=== PATIENT | male | born 1945 | race Caucasian/White ===

== ENCOUNTER → 2016-10-15 | Outpatient (CLI) | payer BC ==
[~2016-10-15] MED LIST: ACYC-147; ACYC-57 PO; AMLO-110 PO; AMLO2.5T PO; ASPI-391 PO; CARB25TA12 PO; CARB25TA14 PO; CHOL100010 PO; CHOL1TAB42 PO; COEN100C15 PO; COEN400C5 PO; DOXY100C PO; HYDR1TAB2 PO; LEVO125T72 PO; LEVO50TA PO; Levofloxacin; METO-551 PO; ROTI1DIS2 TOP; SELE5CAP2 PO; TAMS0.4C59 PO; [UNRECOGNIZED DRUG - OTHER] PO
[2016-10-15 13:15] LABS: HEMATOCRIT 34.4 % (42-52); MEAN CELL VOLUME 90.3 fL (80-100); MEAN CORPUSCULAR HEMOGLOBIN 29.1 pg (25-34); MEAN CORPUSCULAR HGB CONC 32.3 g/dl (32-36); PLATELET COUNT 164 K/uL (130-400); RED BLOOD COUNT 3.81 M/uL (4.7-6.1); WHITE BLOOD COUNT 6.72 K/uL (4.8-10.8)
[2016-10-15 13:53] LABS: BLOOD UREA NITROGEN 25 mg/dl (7-18); BUN/CREATININE RATIO 16.5 (10-20); CALCIUM 8.3 mg/dl (8.5-10.1); CARBON DIOXIDE 28 mmol/L (21-32); CHLORIDE 108 mmol/L (98-107); GLUCOSE 87 mg/dl (70-99); PHOSPHORUS 3.3 mg/dl (2.5-4.9); POTASSIUM 3.9 mmol/L (3.5-5.1); SODIUM 144 mmol/L (136-145)
[2016-10-15 14:58] LABS: URINE APPEARANCE CLEAR (CLEAR); URINE BILIRUBIN NEG (NEG); URINE COLOR DK YELLOW; URINE EPITHELIAL CELL AUTO 20-30 /lpf (0-5); URINE NITRITE NEG (NEG); URINE PH 5.5 (4.5-7.5); URINE SPECIFIC GRAVITY 1.038 (1.000-1.030); UROBILINOGEN NEG (NEG)
[2016-10-15 15:04] LABS: MANUAL MICROSCOPIC REQUIRED? NO; REVIEW REQ? YES
[2016-10-15 15:15] LABS: URINE PROTIEN/CREAT RATIO 0.3 (0-0.2); URINE TOTAL PROTEIN 85.1 mg/dl (0-11.9)
[2016-10-15 15:32] LABS: URINE MUCUS PRESENT (NONE PRSENT)
== END | disposition home or self-care (01) ==
LOC: C.LAB1850 12:25
PROVIDERS: ATTEND Internal Medicine Nephrology
DX: N18.3 Chronic kidney disease, stage 3 (moderate) (principal); C88.0 Waldenstrom macroglobulinemia; I10 Essential (primary) hypertension; N25.81 Secondary hyperparathyroidism of renal origin; D64.9 Anemia, unspecified; E55.9 Vitamin D deficiency, unspecified

== ENCOUNTER 2016-10-18 22:07 | Emergency (ER) | payer BC ==
[~2016-10-18] VITALS: Ht 175.3 cm; Wt 83.7 kg
[~2016-10-18 22:07] MED LIST changes: -ACYC-57 PO; -AMLO-110 PO; -AMLO2.5T PO; -ASPI-391 PO; -CARB25TA12 PO; -CHOL1TAB42 PO; -COEN400C5 PO; -DOXY100C PO; -LEVO125T72 PO; -ROTI1DIS2 TOP
[2016-10-18 22:09] VITALS: TEMP 36.7; Ht 175.3 cm; Wt 83.7 kg
[2016-10-18] MEDS ORDERED: IPRATROPIUM BROMIDE NEB SOLN 0.02% 2.5 ML VIAL INH STA (22:14)
[2016-10-18] MEDS ORDERED: LEVALBUTEROL 1.25MG/0.5ML NEB INH STA (22:14)
[2016-10-18] MEDS ORDERED: ASPI-391 PO (22:29)
[2016-10-18] MEDS ORDERED: ACYC1CAP8 PO (22:29)
[2016-10-18] MEDS ORDERED: ROTI1DIS2 TOP (22:29)
[2016-10-18] MEDS ORDERED: LEVO125T72 PO (22:29)
[2016-10-18] MEDS ORDERED: AMLO2.5T PO (22:29)
[2016-10-18 22:31] VITALS: O2SAT 97
[2016-10-18] MEDS ORDERED: CARB25TA12 PO (22:56)
[2016-10-18] MEDS ORDERED: AMLO-110 PO (22:56)
[2016-10-18] MEDS ORDERED: COEN400C5 PO (22:56)
[2016-10-18] MEDS ORDERED: CHOL1TAB42 PO (22:56)
[2016-10-18 23:02] LABS: BASO % 0.4 %; BASO ABS # 0.03 K/uL (0-0.2); COMPLETE YES; EOS % 3.7 %; HEMATOCRIT 32.8 % (42-52); IG% 0.4 %; LYMPH % 14.1 %; LYMPH ABS # 1.06 K/uL (1.2-3.4); MEAN CELL VOLUME 88.9 fL (80-100); MEAN CORPUSCULAR HGB CONC 32.6 g/dl (32-36); MEAN PLATELET VOLUME 10.7 fL (7.4-10.4); MONO % 16.3 %; NEUT % 65.1 %; PLATELET COUNT 163 K/uL (130-400); RED BLOOD COUNT 3.69 M/uL (4.7-6.1); WHITE BLOOD COUNT 7.54 K/uL (4.8-10.8)
[2016-10-18 23:07] VITALS: PULSE 60; O2SAT 94
[2016-10-18 23:14] LABS: PROTHROMBIN TIME (PATIENT) 10.3 SECONDS (9.0-12.0)
[2016-10-18 23:19] LABS: BUN/CREATININE RATIO 19.7 (10-20); CALCIUM 8.5 mg/dl (8.5-10.1); CREATININE 1.3 mg/dl (0.60-1.40); POTASSIUM 3.9 mmol/L (3.5-5.1)
--- NOTE | 2016-10-18 23:27 | EMERGENCY ROOM VISIT NOTE ---
History Report prepared by Sven: Thompson Davis Under the Supervision of: Dr. Hi Valdovinos M.D. First contact with patient: 22:12 Chief Complaint: SHORTNESS OF BREATH Stated Complaint: SOB, History of Present Illness The patient is a 71 year old male who presents to the Emergency Room with complaints of resolved shortness of breath that occurred earlier tonight. The patient was laying in bed when the shortness of breath occurred. He had a panic attack for the first time in his life when he was short of breath. He has also had a dry, non-productive cough for the past five days. He has had trouble sleeping secondary to the cough. He denies any fevers, chest pain, vomiting, or diarrhea. The patient is susceptible to infection secondary to Waldenstrom macroglobulinemia. He has used inhalers for his lungs in the past. The patient has also noticed increased swelling of his ankles over the past several weeks, which is new. He noticed the swelling prior to a trip to [place]. He does not have a history of blood clots. The patient hasn't seen anybody yet or taken any medications for his symptoms. The patient has a history of Parkinson's disease. Source of History: patient Onset: tonight Position: other (respiratory) Quality: other (short of breath) Timing: resolved Associated Symptoms: + cough, No chest pain, No diarrhea, No fevers, No vomiting Review of Systems See HPI for pertinent positives & negatives. A total of 10 systems reviewed and were otherwise negative. Past Medical & Surgical Medical Problems: (1) Parkinsons disease (2) Waldenstrom macroglobulinemia Family History No pertinent family history Social History Smoking Status: Never Smoker Marital Status: Housing Status: lives with family Current/Historical Medications Scheduled Acyclovir (Zovirax), 200 MG PO BID Amlodipine (Norvasc), 5 MG PO DAILY Nfbfhnn-Ablpmmgvrzlkl-Dxksnaqb (Excedrin Extra Strength), 2 TAB PO BID Carbidopa/Levodopa (Sinemet 25MG/100MG), 2 TABS PO QID Cholecalciferol (Vitamin D), 5,000 UNITS PO DAILY Coenzyme Q10 (Ubidecarenone) (Coq10), 600 MG PO DAILY Doxycycline Hyclate (Vibramycin), 100 MG PO BID Hydrocodone/Acetaminophen 5MG/500MG (Lortab 5MG/500MG), 1-2 TABLET PO Q4-6HR PRN Levothyroxine Sodium (Synthroid), 125 MCG PO DAILY Metoprolol Tartrate (Lopressor), 2 TABLETS PO DAILY Selegiline Hcl (Eldepryl), 5 MG PO BID Tamsulosin Hcl (Flomax), 0.4 MG PO HS Allergies Coded Allergies: Levofloxacin (Verified Allergy, Severe, KIDNEYS HURT,ANKLES SWELL, 10/18/16) Lisinopril (Verified Allergy, Severe, SHORTNESS OF BREATH, 03/28/15) Fentanyl (Verified Allergy, Intermediate, RASH, 03/28/15) Olmesartan (Verified Allergy, Intermediate, RASH, 03/28/15) Tramadol (Verified Allergy, Intermediate, RASH, 03/28/15) Oxycodone (Verified Allergy, Mild, ITCHING, ALLERGY TO OXYCODONE ONLY, ) Pramipexole (Verified Adverse Reaction, Mild, GI SYMPTOMS, 03/28/15) Topiramate (Verified Adverse Reaction, Mild, GI SYMPTOMS, 03/28/15) Physical Exam Vital Signs Date Time Temp Pulse Resp B/P Pulse Ox O2 Delivery O2 Flow Rate FiO2 10/19/16 01:15 62 18 154/86 95 Room Air 10/18/16 23:52 62 20 149/85 95 Room Air 10/18/16 23:07 60 24 94 Room Air 10/18/16 22:38 62 10/18/16 22:31 97 Room Air 10/18/16 22:23 96 Room Air 10/18/16 22:09 36.7 64 20 149/83 97 Room Air Physical Exam GENERAL: Patient is in no acute distress. HEENT: No acute trauma, normocephalic atraumatic, mucous membranes moist, mild nasal congestion, no scleral icterus, no throat erythema or exudate. NECK: No stridor, no adenopathy, no meningismus, trachea is midline. LUNGS: Diminished breath sounds bilaterally, dry cough, breath sounds equal, no wheezing or rhonchi. HEART: 3/6 systolic murmur, regular rate and rhythm. ABDOMEN: Soft, nontender, bowel sounds positive, no hernias, no peritonitis. EXTREMITIES: No cyanosis, mild bilateral pedal edema, full range of motion of all the joints without pain or difficulty, no signs for acute trauma. NEUROLOGIC: Oriented x 3, no acute motor or sensory deficits, no focal weakness. SKIN: No rash, no jaundice, no diaphoresis. Medical Decision & Procedures ER Provider Diagnostic Interpretation: X-ray results as stated below per interpretation by me. Other radiology results and stated below per my review and radiologist interpretation: CHEST ONE VIEW PORTABLE: No mediastinal widening. No pneumothorax. Chronic changes to both lower lungs. No obvious acute focal infiltrate. US VENOUS BILATERAL LOWER EXTREMITIES: No evidence of DVT in the bilateral lower extremities. Radologist: Fabiola Smith MD. Laboratory Results 10/18/16 22:50 Red Blood Count 3.69, Mean Corpuscular Volume 88.9, Mean Corpuscular Hemoglobin 29.0, Mean Corpuscular Hemoglobin Concent 32.6, Mean Platelet Volume 10.7, Neutrophils (%) (Auto) 65.1, Lymphocytes (%) (Auto) 14.1, Monocytes (%) (Auto) 16.3, Eosinophils (%) (Auto) 3.7, Basophils (%) (Auto) 0.4, Neutrophils # (Auto ) 4.91, Lymphocytes # (Auto) 1.06, Monocytes # (Auto) 1.23, Eosinophils # (Auto ) 0.28, Basophils # (Auto) 0.03 10/18/16 22:50 Test 10/18/16 22:50 White Blood Count 7.54 K/uL (4.8-10.8) Red Blood Count 3.69 M/uL (4.7-6.1) Hemoglobin 10.7 g/dL (14.0-18.0) Hematocrit 32.8 % (42-52) Mean Corpuscular Volume 88.9 fL (80-100) Mean Corpuscular Hemoglobin 29.0 pg (25-34) Mean Corpuscular Hemoglobin Concent 32.6 g/dl (32-36) Platelet Count 163 K/uL (130-400) Mean Platelet Volume 10.7 fL (7.4-10.4) Neutrophils (%) (Auto) 65.1 % Lymphocytes (%) (Auto) 14.1 % Monocytes (%) (Auto) 16.3 % Eosinophils (%) (Auto) 3.7 % Basophils (%) (Auto) 0.4 % Neutrophils # (Auto) 4.91 K/uL (1.4-6.5) Lymphocytes # (Auto) 1.06 K/uL (1.2-3.4) Monocytes # (Auto) 1.23 K/uL (0.11-0.59) Eosinophils # (Auto) 0.28 K/uL (0-0.5) Basophils # (Auto) 0.03 K/uL (0-0.2) RDW Standard Deviation 46.8 fL (36.4-46.3) RDW Coefficient of Variation 14.3 % (11.5-14.5) Immature Granulocyte % (Auto) 0.4 % Immature Granulocyte # (Auto) 0.03 K/uL (0.00-0.02) Prothrombin Time 10.3 SECONDS (9.0-12.0) Prothromb Time International Ratio 1.0 (0.9-1.1) Activated Partial Thromboplast Time 26.1 SECONDS (21.0-31.0) Partial Thromboplastin Ratio 1.0 Anion Gap 10.0 mmol/L (3-11) Est Creatinine Clear Calc Drug Dose 51.4 ml/min Estimated GFR () 63.2 Estimated GFR (Non- 54.5 BUN/Creatinine Ratio 19.7 (10-20) Calcium Level 8.5 mg/dl (8.5-10.1) Troponin I 0.018 ng/ml (0-0.045) Laboratory results reviewed by me. Medications Administered Medications (Trade) Dose Ordered Sig/Maggie Route Start Time Stop Time Status Last Admin Dose Admin Levalbuterol (Xopenex 1.25MG/ 0.5ML Neb) 1.25 mg NOW STAT INH 10/18/16 22:14 10/18/16 22:22 DC 10/18/16 22:14 1.25 MG Ipratropium [place] (Atrovent 0.02% 0.5MG/2.5ML Neb) 0.5 mg NOW STAT INH 10/18/16 22:14 10/18/16 22:22 DC 10/18/16 22:14 0.5 MG Pseudoephedrine HCl (Sudafed Tab) 60 mg NOW STAT PO 10/18/16 23:56 10/18/16 23:59 DC 10/19/16 00:05 60 MG Doxycycline Hyclate (Vibramycin Cap) 100 mg ONE ONCE PO 10/19/16 00:00 10/19/16 00:01 DC 10/19/16 00:05 100 MG Albuterol (Ventolin Hfa Inhaler) 2 puffs NOW ONCE INH 10/19/16 00:00 10/19/16 00:01 DC 10/19/16 00:06 2 PUFFS ECG Indication: SOB/dyspnea Rate (beats per minute): 61 Rhythm: normal sinus Findings: no acute ischemic change, no ectopy ED Course 2213: The patient was evaluated in room A3. A complete history and physical exam was performed. 2214: Ipratropium [place] 0.5 mg INH, Levalbuterol 1.25 mg INH. 2355: The patient is doing okay. He is getting ready to go for ultrasound. He would like to try Sudafed. 2356: Sudafed 60 mg PO. 0000: Albuterol 2 puffs INH, Vibramycin 100 mg PO. 0130: Reevaluated the patient. Discussed results and discharge instructions: He verbalized understanding and agreement. The patient is ready for discharge. Medical Decision Differential diagnosis includes bronchitis, pneumonia, sinusitis, DVT/PE, anemia , electrolyte imbalance, cardiac ischemia. There is no leukocytosis. The patient does have a mild anemia but this is baseline looking back at previous testing. No significant electrolyte abnormality or kidney failure. Chest x-ray does not show any obvious pneumonia , pneumothorax or CHF. EKG shows a normal sinus rhythm, no acute ischemia. Cardiac enzyme testing times one is not suggestive of acute cardiac injury. Bilateral lower extremity ultrasound does not show any evidence for DVT. The patient received a DuoNeb, he was given oral Sudafed. He was given oral doxycycline. The patient received albuterol via [facility]. The patient looks well, he is not hypoxic or toxic. I suspect he has an acute bronchitis. As he is immunocompromised, I will have him start antibiotics. He will be prescribed doxycycline. He has used albuterol in the past with success. He used to have a nebulizer. He is going to be using albuterol via [facility]. I have suggested some [id number] Sudafed as needed for persisting nasal congestion. He can see his doctor this week. If worsening, he should return for reassessment. Impression Primary Impression: Acute bronchitis Additional Impression: Lower extremity edema Scribe Attestation The scribe's documentation has been prepared under my direction and personally reviewed by me in its entirety. I confirm that the note above accurately reflects all work, treatment, procedures, and medical decision making performed by me. Departure Information Dispostion Home / Self-Care Prescriptions Doxycycline Hyclate (VIBRAMYCIN) 100 Mg Cap 100 MG PO BID for 10 Days, #20 CAP Prov: Hi Valdovinos M.D. 10/19/16 Referrals Tho Dickerson M.D. (PCP) Forms HOME CARE DOCUMENTATION FORM, IMPORTANT VISIT INFORMATION Patient Instructions A Signature Page, My [facility] Additional Instructions doxycycline 2x per day for 10 days albuterol 3 puffs every 4 or so hours humidifier to the room may try sudafed for congestion see carlin delgado for recheck this week return for worsening symptoms lab testing and imaging was ok today we will call if radiology reads your films differently
[2016-10-18] MEDS ORDERED: PSEUDOEPHEDRINE HCL 30 MG TAB PO STA (23:56)
[2016-10-19] MEDS ORDERED: ALBUTEROL HFA 8 GM INHALER INH ONE
[2016-10-19] MEDS ORDERED: DOXYCYCLINE HYCLATE 100 MG CAP PO ONE
[2016-10-19 01:15] VITALS: BP 154/86; PULSE 62; O2SAT 95
[2016-10-19] MEDS ORDERED: DOXY100C PO (01:29)
--- NOTE | 2016-10-19 06:30 | DIAGNOSTIC IMAGING REPORT ---
CHEST ONE VIEW PORTABLE CLINICAL HISTORY: Respiratory distress. Dyspnea. COMPARISON STUDY: Chest radiograph March 02, 2016. FINDINGS: Lung volumes are at the lower limits of normal. No pneumothorax or pleural effusion is present. There are no areas of consolidation. There is no evidence of pulmonary edema. Cardiomediastinal silhouette is stable. IMPRESSION: No acute cardiopulmonary findings. Electronically signed by: Bin Lake M.D. 10/19/2016 6:29 AM Dictated Date/Time: 10/19/2016 6:28 AM
--- NOTE | 2016-10-19 06:42 | DIAGNOSTIC IMAGING REPORT ---
BILATERAL LOWER EXTREMITY VENOUS DOPPLER CLINICAL HISTORY: Lower extremity swelling. Recent plane trip. Shortness of breath. COMPARISON STUDY: No previous studies for comparison. TECHNIQUE: Sonography of the deep venous system of the bilateral lower extremities was performed. Compression and augmentation were evaluated. FINDINGS: The bilateral common femoral, superficial femoral and popliteal veins were compressible. Augmentation was normal. Flow was shown within the deep calf vessels. IMPRESSION: No evidence of deep venous thrombus within the bilateral lower extremities. Electronically signed by: Bin Lake M.D. 10/19/2016 6:40 AM Dictated Date/Time: 10/19/2016 6:39 AM
== END 2016-10-19 01:39 | disposition home or self-care (01) ==
LOC: C.EDB 22:07 → C.EDA 10-19 01:39
DX: J20.9 Acute bronchitis, unspecified (principal); R60.0 Localized edema; G20 Parkinson's disease; Z79.82 Long term (current) use of aspirin; Z79.899 Other long term (current) drug therapy; Z88.5 Allergy status to narcotic agent; Z88.8 Allergy status to other drugs, medicaments and biological substances

== ENCOUNTER → 2017-01-26 | Outpatient (CLI) | payer BC ==
[~2017-01-26] MED LIST changes: -ACYC-147; +ACYC-57 PO; +AMLO-110 PO; +ASPI-391 PO; +CARB25TA12 PO; -CARB25TA14 PO; -CHOL100010 PO; +CHOL1TAB42 PO; -COEN100C15 PO; +COEN400C5 PO; +LEVO125T72 PO; -LEVO50TA PO; -Levofloxacin; -[UNRECOGNIZED DRUG - OTHER] PO
== END | disposition home or self-care (01) ==
LOC: C.RDSM 13:57
PROVIDERS: ATTEND Family Medicine
DX: M25.512 Pain in left shoulder (principal)

== ENCOUNTER → 2017-04-15 | Outpatient (CLI) | payer BC ==
[~2017-04-15] MED LIST changes: -ACYC-57 PO; +ACYC1CAP8 PO
[2017-04-15 15:41] LABS: HEMATOCRIT 33.9 % (42-52); MEAN CELL VOLUME 90.9 fL (80-100); MEAN CORPUSCULAR HEMOGLOBIN 28.4 pg (25-34); MEAN CORPUSCULAR HGB CONC 31.3 g/dl (32-36); MEAN PLATELET VOLUME 11.1 fL (7.4-10.4); PLATELET COUNT 157 K/uL (130-400); RED BLOOD COUNT 3.73 M/uL (4.7-6.1); WHITE BLOOD COUNT 8.64 K/uL (4.8-10.8)
[2017-04-15 15:51] LABS: URINE APPEARANCE CLEAR (CLEAR); URINE BILIRUBIN NEG (NEG); URINE COLOR YELLOW; URINE NITRITE NEG (NEG); URINE PH 5.5 (4.5-7.5); UROBILINOGEN NEG (NEG)
[2017-04-15 16:02] LABS: MANUAL MICROSCOPIC REQUIRED? NO; REVIEW REQ? NO
[2017-04-15 16:08] LABS: URINE PROTIEN/CREAT RATIO 0.2 (0-0.2); URINE TOTAL PROTEIN 31.3 mg/dl (0-11.9)
[2017-04-15 16:09] LABS: BLOOD UREA NITROGEN 28 mg/dl (7-18); BUN/CREATININE RATIO 16.7 (10-20); CALCIUM 9.2 mg/dl (8.5-10.1); CARBON DIOXIDE 27 mmol/L (21-32); CHLORIDE 105 mmol/L (98-107); GLUCOSE 89 mg/dl (70-99); PHOSPHORUS 3.8 mg/dl (2.5-4.9); POTASSIUM 4.3 mmol/L (3.5-5.1); SODIUM 140 mmol/L (136-145)
== END | disposition home or self-care (01) ==
LOC: C.LAB1850 14:52
PROVIDERS: ATTEND Internal Medicine Nephrology
DX: N18.3 Chronic kidney disease, stage 3 (moderate) (principal); I12.9 Hypertensive chronic kidney disease with stage 1 through stage 4 chronic kidney disease, or unspecified chronic kidney disease; C88.0 Waldenstrom macroglobulinemia; N25.81 Secondary hyperparathyroidism of renal origin; D64.9 Anemia, unspecified; E55.9 Vitamin D deficiency, unspecified

== ENCOUNTER → 2017-10-15 | Outpatient (CLI) | payer BC ==
[~2017-10-15] MED LIST changes: +ACYC-57 PO; -ACYC1CAP8 PO; -AMLO-110 PO; +AMLO5TAB3 PO; +CINN500C13 PO; +HYDR-4715 PO; +KLN/5 PO; +LXP10 PO; +SILD1TAB11 PO
[2017-10-15 14:40] LABS: HEMATOCRIT 32.8 % (42-52); HEMOGLOBIN 10.2 g/dL (14.0-18.0); MEAN CELL VOLUME 91.1 fL (80-100); MEAN CORPUSCULAR HEMOGLOBIN 28.3 pg (25-34); MEAN CORPUSCULAR HGB CONC 31.1 g/dl (32-36); MEAN PLATELET VOLUME 10.9 fL (7.4-10.4); PLATELET COUNT 145 K/uL (130-400); RED CELL DISTRIBUTION WIDTH CV 14.9 % (11.5-14.5); RED CELL DISTRIBUTION WIDTH SD 49.6 fL (36.4-46.3); WHITE BLOOD COUNT 6.68 K/uL (4.8-10.8)
[2017-10-15 17:24] LABS: ALBUMIN 3.2 gm/dl (3.4-5.0); BLOOD UREA NITROGEN 25 mg/dl (7-18); CALCIUM 8.3 mg/dl (8.5-10.1); CARBON DIOXIDE 24 mmol/L (21-32); CREATININE 1.54 mg/dl (0.60-1.40); GLUCOSE 91 mg/dl (70-99); PHOSPHORUS 3.4 mg/dl (2.5-4.9); POTASSIUM 3.5 mmol/L (3.5-5.1); SODIUM 139 mmol/L (136-145)
== END | disposition home or self-care (01) ==
LOC: C.LAB1850 13:11
PROVIDERS: ATTEND Internal Medicine Nephrology
DX: I12.9 Hypertensive chronic kidney disease with stage 1 through stage 4 chronic kidney disease, or unspecified chronic kidney disease (principal); N18.3 Chronic kidney disease, stage 3 (moderate); N25.81 Secondary hyperparathyroidism of renal origin; D64.9 Anemia, unspecified; E55.9 Vitamin D deficiency, unspecified

== ENCOUNTER → 2018-02-04 | Outpatient (CLI) | payer BC ==
[~2018-02-04] MED LIST changes: +AMLO-110 PO; -AMLO5TAB3 PO; +CLON0.5T3 PO; -KLN/5 PO
--- NOTE | 2018-02-04 10:21 | DIAGNOSTIC IMAGING REPORT ---
LEG LENGTH STUDY (WHOLE LEG) CLINICAL HISTORY: LEG LENGTH DISCREPANCY COMPARISON STUDY: Left tibia/fibula 07/14/2013. FINDINGS: There is a left downward tilt of the pelvis of approximately 10 degrees. This is primarily secondary to the varus angulation of the left knee with severe cartilage space narrowing and [id number] articulation of the lateral compartment of the left knee. This accounts for the apparent shortening of the left lower extremity. The left lower extremity measured from the superior aspect of the femoral head to the tibial plafond measures 86.1 cm and the right lower extremity measures 89.9 cm. The left tibia measures approximately 36.7 cm and the right tibia measures 38.8 cm. The right femur measures 50.5 cm and the left femur measures 49.2 cm. IMPRESSION: Multifactorial left lower extremity shortening in comparison to the right as described above. Electronically signed by: Rudy Desouza M.D. 02/04/2018 10:20 AM Dictated Date/Time: 02/04/2018 10:15 AM
== END | disposition home or self-care (01) ==
LOC: C.RADBC 09:56
PROVIDERS: ATTEND Physician Assistant
DX: M21.70 Unequal limb length (acquired), unspecified site (principal); M54.5 Low back pain

== ENCOUNTER → 2018-04-28 | Outpatient (CLI) | payer BC ==
[~2018-04-28] MED LIST changes: -AMLO-110 PO; -CLON0.5T3 PO; -HYDR1TAB2 PO; +KLN/5 PO; -SELE5CAP2 PO
[2018-04-28 12:32] LABS: BASO % 0.6 %; BASO ABS # 0.04 K/uL (0-0.2); EOS % 0.8 %; EOS ABS # 0.05 K/uL (0-0.5); HEMATOCRIT 32.6 % (42-52); HEMOGLOBIN 9.9 g/dL (14.0-18.0); IG# 0.04 K/uL (0.00-0.02); LYMPH ABS # 1.97 K/uL (1.2-3.4); MEAN CELL VOLUME 90.8 fL (80-100); MEAN CORPUSCULAR HEMOGLOBIN 27.6 pg (25-34); MEAN CORPUSCULAR HGB CONC 30.4 g/dl (32-36); MEAN PLATELET VOLUME 10.9 fL (7.4-10.4); MONO ABS # 1.05 K/uL (0.11-0.59); NEUT ABS # 3.41 K/uL (1.4-6.5); PLATELET COUNT 150 K/uL (130-400); RED CELL DISTRIBUTION WIDTH CV 15.1 % (11.5-14.5); RED CELL DISTRIBUTION WIDTH SD 50.4 fL (36.4-46.3); WHITE BLOOD COUNT 6.56 K/uL (4.8-10.8)
[2018-04-28 12:43] LABS: ALBUMIN 3.3 gm/dl (3.4-5.0); ALKALINE PHOSPHATASE 111 U/L (45-117); ALT/SGPT 8 U/L (12-78); AST/SGOT 14 U/L (15-37); BLOOD UREA NITROGEN 30 mg/dl (7-18); CALCIUM 8.8 mg/dl (8.5-10.1); CARBON DIOXIDE 28 mmol/L (21-32); CREATININE 1.53 mg/dl (0.60-1.40); GLUCOSE 88 mg/dl (70-99); POTASSIUM 4.5 mmol/L (3.5-5.1); SODIUM 139 mmol/L (136-145); TOTAL PROTEIN 7.8 gm/dl (6.4-8.2); TRANSFERRIN 272 mg/dl (200-360)
[2018-04-28 13:42] LABS: FECAL OCCULT BLOOD #1 NEGATIVE (NEGATIVE); FECAL OCCULT BLOOD #2 NEGATIVE (NEGATIVE); FECAL OCCULT BLOOD #3 NEGATIVE (NEGATIVE)
== END | disposition home or self-care (01) ==
LOC: C.LAB1850 10:45
PROVIDERS: ATTEND Internal Medicine Nephrology
DX: I12.9 Hypertensive chronic kidney disease with stage 1 through stage 4 chronic kidney disease, or unspecified chronic kidney disease (principal); N18.3 Chronic kidney disease, stage 3 (moderate); G20 Parkinson's disease; N25.81 Secondary hyperparathyroidism of renal origin; D64.9 Anemia, unspecified; E55.9 Vitamin D deficiency, unspecified

== ENCOUNTER → 2018-05-03 | Outpatient (CLI) | payer BC ==
--- NOTE | 2018-05-03 16:22 | DIAGNOSTIC IMAGING REPORT ---
BRAIN WITHOUT CONTRAST HISTORY: 72 years-old Male R51 Headache acute headache. History of stage III kidney disease. COMPARISON: Brain MRI 04/09/2014 TECHNIQUE: Multiplanar multisequence MRI of the brain was obtained without the use of IV contrast FINDINGS: Sales Intern localizer images demonstrate no gross abnormality. No restricted diffusion to suggest acute or subacute infarction. Prominent posterior bright spot about the pituitary without definite pituitary mass identified. The remaining midline structures including the corpus callosum, brainstem, optic chiasm and pineal gland appear unremarkable on the sagittal T1 series. No cerebellar tonsillar herniation. Degenerative changes about the imaged cervical spine. There is no pathologic blooming artifact identified on the T2 star series. There is no acute intracranial hemorrhage, midline shift, abnormal extra-axial collections, hydrocephalus or intracranial mass. Study is mildly motion degraded. There are a few scattered areas of T2/FLAIR prolongation about the subcortical and periventricular white matter which appears unchanged from comparison suggesting chronic microvascular ischemic changes. Mild age-related cerebral and cerebellar atrophy. The major flow voids appear patent. Orbits are within normal limits. Mild mucoperiosteal thickening about the ethmoid air cells, frontal and maxillary sinuses. Trace left mastoid effusion. Soft tissues and skull are unremarkable. IMPRESSION: 1. No acute intracranial abnormality. 2. No acute infarction. 3. Age-related involutional changes with mild chronic microvascular ischemic changes. 4. Mild paranasal sinus disease with trace left mastoid effusion. The above report was generated using voice recognition software. It may contain grammatical, syntax or spelling errors. Electronically signed by: Jeffry Boss M.D. 05/03/2018 4:20 PM Dictated Date/Time: 05/03/2018 4:13 PM
== END | disposition home or self-care (01) ==
LOC: C.MRIBC 14:38
PROVIDERS: ATTEND Physician Assistant
DX: R51 Headache (principal)

== ENCOUNTER 2018-11-24 21:29 | Observation (INO) ==
[2018-11-24 22:11] LABS: Hematocrit (blood only) 34.7 % (42-52); Hemoglobin 10.1 g/dL (14.0-18.0); Mean Corpuscular Hgb Conc 29.1 g/dL (32-36); Mean Corpuscular Volume 92.8 fL (80-100); RDW Standard Deviation 57.6 fL (36.4-46.3); Red Blood Count 3.74 M/uL (4.7-6.1)
[2018-11-24 22:21] LABS: Partial Thromboplastin Ratio 1.1; Partial Thromboplastin Time 27.3 Seconds (21.0-31.0); Prothrombin Time 10.1 Seconds (9.0-12.0)
[2018-11-24 22:23] LABS: Alanine Aminotransferase 6 U/L (12-78); Albumin Level 2.7 gm/dl (3.4-5.0); Aspartate Aminotransferase 20 U/L (15-37); BUN Creatinine Ratio 24.5 (10-20); Blood Urea Nitrogen 39 mg/dl (7-18); Calcium 8.8 mg/dl (8.5-10.1); Carbon Dioxide 29 mmol/L (21-32); Chloride 106 mmol/L (98-107); Creatinine Clr Calc Pharmacy 41.4 ml/min; Est GFR (African American) 48.8; Est GFR (Non-African American) 42.1; Glucose 101 mg/dl (70-99); Sodium 141 mmol/L (136-145)
[2018-11-24 22:27] LABS: Albumin Globulin Ratio 0.6 (0.9-2); Alkaline Phosphatase 116 U/L (45-117); Bilirubin,Total 0.3 mg/dl (0.2-1); Globulin 4.7 gm/dl (2.5-4.0); Total Protein 7.4 gm/dl (6.4-8.2); Troponin I < 0.015 ng/ml (0-0.045)
[2018-11-24 22:38] LABS: Basophils # (auto) 0.02 K/uL (0-0.2); Basophils % (auto) 0.4 %; Eosinophils # (auto) 0.06 K/uL (0-0.5); Eosinophils % (auto) 1.1 %; Immature Granulocytes # (auto) 0.17 K/uL (0.00-0.02); Lymphocytes % (auto) 28.1 %; Mean Platelet Volume 10.7 fL (7.4-10.4); Monocytes # (auto) 0.84 K/uL (0.11-0.59); Monocytes % (auto) 14.7 %; Neutrophils # (auto) 3.01 K/uL (1.4-6.5); Neutrophils % (auto) 52.7 %; Platelet Count 94 K/uL (130-400); Platelet Estimate Decreased (Normal)
--- NOTE | 2018-11-24 22:39 | XRay Report ---
XR chest 1V portable HISTORY: Short of breath. COMPARISON: Chest 11/11/2018. FINDINGS: No pneumothorax. No pleural effusions. There are low lung volumes. The heart remains mildly enlarged. No evidence for pulmonary edema. Bibasilar linear densities are noted. IMPRESSION: 1. Mild cardiomegaly, unchanged. 2. Low lung volumes with bibasilar linear densities. This favors subsegmental atelectasis. Electronically signed by: Rudy Desouza M.D. 11/24/2018 10:38 PM
[2018-11-25 00:07] LABS: NT Pro B Type Natriuretic Pept 793 pg/ml (0-900)
--- NOTE | 2018-11-25 02:12 | Emergency Department Note ---
Entered by Jones Mcarthur acting as a scribe for Greg Hawk MD ED Provider Note CHIEF COMPLAINT: Shortness of breath HISTORY OF PRESENT ILLNESS: The patient is a 73 year old male who presents to the Emergency Room with complaints of worsening shortness of breath beginning 5 months ago. The patient states he has a a history of Waldenstrom macroglobulinemia. He reports he experienced worsening an episode of shortness of breath while sitting down watching TV. He denies exerting himself. His states his lips will intermittently turn purple. The patient notes he gets weekly injections for his anemia, and his hemoglobin is normally between 8-10. He states he does not have underlying lung problems, but his PCP has him on steroids and an inhaler. The patient reports he recently had sinusitis that cured with doxycycline. He notes he starts chemotherapy on . Pt denies LOC, headache, fevers, chills, diaphoresis, visual changes, neck pain, chest pain, nausea, vomiting, abdominal pain, back pain, melena, hematochezia, urinary symptoms, numbness, weakness, lymphadenopathy, rash, or other complaints. REVIEW OF SYSTEMS: See HPI for pertinent positives and negatives. A total of ten systems were reviewed and were otherwise negative. PMHx/PSHx: Waldenstrom macroglobulinemia HTN Parkinson disease SOCIAL HISTORY: Patient lives at home. PHYSICAL EXAM: GENERAL: Awake, alert, tired-appearing, in no distress HENT: Normocephalic, atraumatic. Oropharynx unremarkable. EYES: Normal conjunctiva. Sclera non-icteric. NECK: Inspection normal. Non-tender. Supple. No nuchal rigidity. FROM. No masses. RESPIRATORY: Clear to auscultation. No wheezes. No rales. Normal respiratory effort. CARDIAC: Normal rate. Normal rhythm. Systolic ejection murmurs. No rubs. Extremities warm and well perfused. Pulses equal. No JVD. GI: Soft, non-distended. No tenderness to palpation. No rebound or guarding. No masses. RECTAL: Deferred. MUSCULOSKELETAL: Atraumatic. Chest examination reveals no tenderness. The back is symmetrical on inspection without obvious abnormality. There is no CVA tenderness to palpation. No joint edema. LOWER EXTREMITIES: Calves are equal size bilaterally and non-tender. 1+ lower extremity edema. No discoloration. NEURO: Normal sensorium. No sensory or motor deficits noted. SKIN: No rash or jaundice noted. EMERGENCY DEPARTMENT COURSE: 2258: Past medical records reviewed. The patient was evaluated in room C03 by the medical student under my supervision, and a complete history and physical examination were performed. 2338: Past medical records reviewed. The patient was evaluated in room C03, and a complete history and physical examination were performed by me. 0009: I reevaluated the patient and noted the D-dimer was elevated. The patient will be going for a bilateral LE ultrasound. Patient cannot have CT because creatinine was elevated. 0144: I reevaluated the patient and discussed the test results. The patient agreed to the treatment plan and hospitalist evaluation. The patient will be evaluated for further management and care. 0150: I discussed the patient's care with Dr. Lind [facility] [place], hospitalist and she will evaluate the patient for further management and care. MEDICAL DECISION MAKING: Prior records/ancillary studies reviewed. Patient noted to have a mild anemia which is stable around hemoglobin of 10. Triage Nursing notes reviewed and agree them. Additional history obtained from the family. The patient's history was concerning for shortness of breath. Differential diagnosis: Etiologies such as pneumonia, COPD, reactive airway disease, CHF, cardiac ischemia, pulmonary embolism, pneumothorax, musculoskeletal, infections, gastrointestinal, as well as others were entertained. Physical examination: As above. Vital signs stable. ER treatment provided: Continuous cardiac monitoring On reassessment the patient felt better. Diagnostic interpretation by me: The electrocardiogram was negative for pathologic change. The labs revealed an unremarkable CBC except for stable anemia. Chronic renal insufficiency noted on chemistry panel. Cardiac troponin negative. The patient 's d-dimer is elevated. Imaging studies: Chest x-ray performed and negative. The patient had bilateral ultrasound imaging of the lower extremities which were negative for DVT. Patient had shortness of breath. He has an elevated d-dimer. He has an elevated creatinine. Because of this he will need further evaluation with the VQ scan. That is not available at this time. I discussed having the patient observed in the hospital overnight and he felt comfortable with this plan. He was very concerned about his breathing. Consultation: A consultation was placed with the hospitalist. The case was discussed and diagnostics were reviewed. The patient was evaluated in the ER for further treatment. IMPRESSION: SOB, Elevated d-dimer, Chronic Kidney Disease PLAN: Admit Scribe Attestation: The scribe's documentation has been prepared under my direction and personally reviewed by me in its entirety. I confirm that the note above accurately reflects all work, treatment, procedures, and medical decision making performed by me. Impression & Plan SOB (shortness of breath), Elevated d-dimer, Chronic kidney disease Past Med/Surg History Medical History Leg length discrepancy (Chronic) Bilateral sacroiliitis (Chronic) Parkinson disease (Chronic) Urinary frequency (Chronic) Hypertension (Chronic) Hypothyroid (Chronic) Parkinsons disease (Chronic) Waldenstrom macroglobulinemia (Chronic) Surgical History S/P knee surgery H/O hemorrhoidectomy (Resolved) H/O left knee surgery (Resolved) H/O thumb surgery (Resolved) Family History Mother Diabetes Father Diabetes Social History marital status: Current Living Situation: Spouse current occupational status: retired Other Information That Helps Us Care for You: No Feels Safe at Home: Yes Safety Concerns: Feels Safe At This Time Smoking Status: Never smoker Hx Alcohol Use: No Hx Substance Use: No Beliefs That Will Affect Care: None Communication Ability: Effective Results & Data Vital Signs Vital Signs - 24 hr 11/25/18 02:03 11/25/18 06:08 11/25/18 06:37 Temperature 36.5 C Temperature Source Oral Pulse Rate [Apical] 67 67 67 Pulse Rate [Resting] Pulse Rate [Right Brachial] Pulse Rhythm [Apical] Regular Regular Pulse Strength [Apical] Normal Normal Respiratory Rate 16 17 18 Respiratory Effort / Characteristics Non-Labored Spontaneous Non-Labored Spontaneous Non-Labored Spontaneous Respiratory Depth Normal Normal Normal Respiratory Pattern Regular Regular Blood Pressure [Right Arm] 144/72 H 164/86 H 169/77 H Blood Pressure Mean [Right Arm] 96 112 107 Blood Pressure Position [Right Arm] Lying Sitting Pulse Oximetry 96 95 Pulse Oximetry [Resting] Oxygen Delivery Method Room Air Room Air Room Air Oxygen Delivery Method [Resting] 11/25/18 08:00 11/25/18 12:46 11/25/18 15:10 Temperature 36.8 C 36.7 C Temperature Source Oral Oral Pulse Rate [Apical] Pulse Rate [Resting] Pulse Rate [Right Brachial] 63 59 L Pulse Rhythm [Apical] Pulse Strength [Apical] Respiratory Rate 18 20 Respiratory Effort / Characteristics Non-Labored Spontaneous Respiratory Depth Normal Respiratory Pattern Regular Blood Pressure [Right Arm] 154/75 H 168/84 H 160/80 H Blood Pressure Mean [Right Arm] 101 112 106 Blood Pressure Position [Right Arm] Right Lateral Sitting Pulse Oximetry 97 97 Pulse Oximetry [Resting] Oxygen Delivery Method Room Air Oxygen Delivery Method [Resting] 11/25/18 19:56 11/25/18 23:00 11/25/18 23:12 Temperature 36.5 C 37.0 C Temperature Source Oral Oral Pulse Rate [Apical] Pulse Rate [Resting] 64 Pulse Rate [Right Brachial] 65 58 L Pulse Rhythm [Apical] Pulse Strength [Apical] Respiratory Rate 20 18 Respiratory Effort / Characteristics Respiratory Depth Respiratory Pattern Blood Pressure [Right Arm] 184/88 H 172/85 H Blood Pressure Mean [Right Arm] 120 114 Blood Pressure Position [Right Arm] Lying Lying Pulse Oximetry 98 95 Pulse Oximetry [Resting] 95 Oxygen Delivery Method Room Air Room Air Oxygen Delivery Method [Resting] Room Air Home Medications Current Medication List: was personally reviewed by me Laboratory Data Attestation: I reviewed the patient's lab results. Result diagrams: 11/24/18 21:45 11/25/18 08:20 Lab Results 11/24/18 11/24/18 11/24/18 Range/Units 21:45 21:45 21:45 WBC 5.70 (4.8-10.8) K/uL RBC 3.74 L (4.7-6.1) M/uL Hgb 10.1 L (14.0-18.0) g/dL Hct 34.7 L (42-52) % MCV 92.8 (80-100) fL MCH 27.0 (25-34) pg MCHC 29.1 L (32-36) g/dL RDW Std Deviation 57.6 H (36.4-46.3) fL RDW Coeff of Silvia 17.0 H (11.5-14.5) % Plt Count 94 L (130-400) K/uL MPV 10.7 H (7.4-10.4) fL Immature Gran % (Auto) 3.0 % Neut % (Auto) 52.7 % Lymph % (Auto) 28.1 % [place] % (Auto) 14.7 % Eos % (Auto) 1.1 % Baso % (Auto) 0.4 % Immature Gran # (Auto) 0.17 H (0.00-0.02) K/uL Neut # (Auto) 3.01 (1.4-6.5) K/uL Lymph # (Auto) 1.60 (1.2-3.4) K/uL [place] # (Auto) 0.84 H (0.11-0.59) K/uL Eos # (Auto) 0.06 (0-0.5) K/uL Baso # (Auto) 0.02 (0-0.2) K/uL Platelet Estimate Decreased (Normal) PT 10.1 (9.0-12.0) Seconds INR 1.0 (0.9-1.1) APTT 27.3 (21.0-31.0) Seconds PTT Ratio 1.1 POC D-Dimer (0-450) ng/mlFEU Sodium 141 (136-145) mmol/L Potassium 4.0 (3.5-5.1) mmol/L Chloride 106 (98-107) mmol/L Carbon Dioxide 29 (21-32) mmol/L Anion Gap 5.0 (3-11) BUN 39 H (7-18) mg/dl Creatinine 1.59 H (0.6-1.4) mg/dl Est Cr Clr Drug Dosing 41.4 ml/min Est GFR ( Amer) 48.8 Est GFR (Non-Af Amer) 42.1 BUN/Creatinine Ratio 24.5 H (10-20) Glucose 101 H (70-99) mg/dl POC Glucose (70-99) Calcium 8.8 (8.5-10.1) mg/dl Magnesium (1.8-2.4) mg/dl Total Bilirubin 0.3 (0.2-1) mg/dl AST 20 (15-37) U/L ALT 6 L (12-78) U/L Alkaline Phosphatase 116 (45-117) U/L Troponin I < 0.015 (0-0.045) ng/ml NT-Pro-B Natriuret Pep 793 (0-900) pg/ml Total Protein 7.4 (6.4-8.2) gm/dl Albumin 2.7 L (3.4-5.0) gm/dl Globulin 4.7 H (2.5-4.0) gm/dl Albumin/Globulin Ratio 0.6 L (0.9-2) 11/24/18 11/25/18 11/25/18 Range/Units 23:57 07:46 08:20 WBC (4.8-10.8) K/uL RBC (4.7-6.1) M/uL Hgb (14.0-18.0) g/dL Hct (42-52) % MCV (80-100) fL MCH (25-34) pg MCHC (32-36) g/dL RDW Std Deviation (36.4-46.3) fL RDW Coeff of Silvia (11.5-14.5) % Plt Count (130-400) K/uL MPV (7.4-10.4) fL Immature Gran % (Auto) % Neut % (Auto) % Lymph % (Auto) % [place] % (Auto) % Eos % (Auto) % Baso % (Auto) % Immature Gran # (Auto) (0.00-0.02) K/uL Neut # (Auto) (1.4-6.5) K/uL Lymph # (Auto) (1.2-3.4) K/uL [place] # (Auto) (0.11-0.59) K/uL Eos # (Auto) (0-0.5) K/uL Baso # (Auto) (0-0.2) K/uL Platelet Estimate (Normal) PT (9.0-12.0) Seconds INR (0.9-1.1) APTT (21.0-31.0) Seconds PTT Ratio POC D-Dimer > 450 H* (0-450) ng/mlFEU Sodium 140 (136-145) mmol/L Potassium 4.3 (3.5-5.1) mmol/L Chloride 106 (98-107) mmol/L Carbon Dioxide 28 (21-32) mmol/L Anion Gap 6.0 (3-11) BUN 35 H (7-18) mg/dl Creatinine 1.47 H (0.6-1.4) mg/dl Est Cr Clr Drug Dosing 44.8 ml/min Est GFR ( Amer) 53.7 Est GFR (Non-Af Amer) 46.3 BUN/Creatinine Ratio 23.7 H (10-20) Glucose 81 (70-99) mg/dl POC Glucose 88 (70-99) Calcium 8.5 (8.5-10.1) mg/dl Magnesium (1.8-2.4) mg/dl Total Bilirubin (0.2-1) mg/dl AST (15-37) U/L ALT (12-78) U/L Alkaline Phosphatase (45-117) U/L Troponin I (0-0.045) ng/ml NT-Pro-B Natriuret Pep (0-900) pg/ml Total Protein (6.4-8.2) gm/dl Albumin (3.4-5.0) gm/dl Globulin (2.5-4.0) gm/dl Albumin/Globulin Ratio (0.9-2) 11/25/18 Range/Units 08:20 WBC (4.8-10.8) K/uL RBC (4.7-6.1) M/uL Hgb (14.0-18.0) g/dL Hct (42-52) % MCV (80-100) fL MCH (25-34) pg MCHC (32-36) g/dL RDW Std Deviation (36.4-46.3) fL RDW Coeff of Silvia (11.5-14.5) % Plt Count (130-400) K/uL MPV (7.4-10.4) fL Immature Gran % (Auto) % Neut % (Auto) % Lymph % (Auto) % [place] % (Auto) % Eos % (Auto) % Baso % (Auto) % Immature Gran # (Auto) (0.00-0.02) K/uL Neut # (Auto) (1.4-6.5) K/uL Lymph # (Auto) (1.2-3.4) K/uL [place] # (Auto) (0.11-0.59) K/uL Eos # (Auto) (0-0.5) K/uL Baso # (Auto) (0-0.2) K/uL Platelet Estimate (Normal) PT (9.0-12.0) Seconds INR (0.9-1.1) APTT (21.0-31.0) Seconds PTT Ratio POC D-Dimer (0-450) ng/mlFEU Sodium (136-145) mmol/L Potassium (3.5-5.1) mmol/L Chloride (98-107) mmol/L Carbon Dioxide (21-32) mmol/L Anion Gap (3-11) BUN (7-18) mg/dl Creatinine (0.6-1.4) mg/dl Est Cr Clr Drug Dosing ml/min Est GFR ( Amer) Est GFR (Non-Af Amer) BUN/Creatinine Ratio (10-20) Glucose (70-99) mg/dl POC Glucose (70-99) Calcium (8.5-10.1) mg/dl Magnesium 2.1 (1.8-2.4) mg/dl Total Bilirubin (0.2-1) mg/dl AST (15-37) U/L ALT (12-78) U/L Alkaline Phosphatase (45-117) U/L Troponin I (0-0.045) ng/ml NT-Pro-B Natriuret Pep (0-900) pg/ml Total Protein (6.4-8.2) gm/dl Albumin (3.4-5.0) gm/dl Globulin (2.5-4.0) gm/dl Albumin/Globulin Ratio (0.9-2) Administered Medications Acetaminophen (Tylenol) 650 mg PO Q4H PRN PRN Reason: pain/fever Stop: 12/25/18 06:35 Last Admin: 11/25/18 08:35 Dose: 650 mg Acyclovir (Zovirax) 200 mg PO BID [facility] Stop: 12/25/18 08:59 Last Admin: 11/25/18 20:28 Dose: 200 mg Admin: 11/25/18 08:36 Dose: 200 mg Carbidopa/Levodopa (Sinemet 25/250mg) 1 tab PO QID [facility] Stop: 12/25/18 08:59 Last Admin: 11/25/18 20:29 Dose: 1 tab Admin: 11/25/18 16:10 Dose: 1 tab Admin: 11/25/18 12:46 Dose: 1 tab Admin: 11/25/18 08:36 Dose: 1 tab Hydralazine HCl (Apresoline) 10 mg PO TID GREG Stop: 12/25/18 08:59 Last Admin: 11/25/18 20:27 Dose: 10 mg Admin: 11/25/18 13:14 Dose: 10 mg Admin: 11/25/18 08:37 Dose: 10 mg Levothyroxine Sodium (Synthroid) 125 mcg PO DAILYBB GREG Stop: 12/25/18 06:59 Last Admin: 11/25/18 08:37 Dose: 125 mcg Metoprolol Tartrate (Lopressor) 50 mg PO BID GREG Stop: 12/25/18 08:59 Last Admin: 11/25/18 20:27 Dose: 50 mg Admin: 11/25/18 08:37 Dose: 50 mg Miscellaneous (Order Awaiting Action) 1 ea N/A QS GREG Stop: 12/25/18 07:59 Last Admin: 11/25/18 23:34 Dose: Not Given Admin: 11/25/18 15:09 Dose: Not Given Admin: 11/25/18 07:15 Dose: Not Given Tamsulosin HCl (Flomax) 0.4 mg PO HS GREG Stop: 12/25/18 20:59 Last Admin: 11/25/18 20:28 Dose: 0.4 mg Vitamin D (Vitamin D3) 5,000 units PO QAM GREG Stop: 12/25/18 08:59 Last Admin: 11/25/18 08:36 Dose: 5,000 units Discontinued Medications Acetaminophen (Ofirmev) 1,000 mg in 100 mls @ 400 mls/hr IV NOW STA Stop: 11/25/18 04:11 Last Infusion: 11/25/18 04:30 Dose: 0 mls/hr Admin: 11/25/18 04:10 Dose: 400 mls/hr Imaging Data Radiologist's Impression: Radiology results as stated below per my review and the radiologist's interpretation: XR chest 1V portable HISTORY: Short of breath. COMPARISON: Chest 11/11/2018. FINDINGS: No pneumothorax. No pleural effusions. There are low lung volumes. The heart remains mildly enlarged. No evidence for pulmonary edema. Bibasilar linear densities are noted. IMPRESSION: 1. Mild cardiomegaly, unchanged. 2. Low lung volumes with bibasilar linear densities. This favors subsegmental atelectasis. Electronically signed by: Rudy Desouza M.D. 11/24/2018 10:38 PM Radiology results as stated below per my review and the [facility] radiologist's interpretation: US VENOUS BILATERAL LOWER EXTREMITIES No DVT demonstrated Inguinal mass lesions Radiologist: Bimal Ledezma MD Study Ready at 01:08 and initial results at 01:25 ECG Data Attestation: I personally reviewed and interpreted this ECG as follows: Indication: SOB/dyspnea Rate (beats per minute): 71 Rhythm: normal sinus Findings: + nonspecific-ST abn; no PAC, no PVC, no ST depression, no ST elevation, no acute ischemic change and no ectopy Comparison ECG Date: from (09/06/2012) Change: no significant change Blood Pressure Blood Pressure Findings: Elevated blood pressure Blood Pressure Disposition: further management by hospitalist Discharge Plan Visit Data *Final* Discharge Date/Time: 11/25/18 06:09 Chief Complaint: Shortness of Breath/Dyspnea Stated Complaint: TROUBLE BREATHING ED Provider: Greg Hawk Discharge Problem: SOB (shortness of breath), Elevated d-dimer, Chronic kidney disease Patient Disposition: Admitted As Inpatient Discharge Instructions Interventions: ED Discharge Assessment Last Done: 11/25/18 06:09 The scribe's documentation has been prepared under my direction and personally reviewed by me in its entirety. I confirm that the note above accurately reflects all work, treatment, procedures, and medical decision making performed by me.
[2018-11-25] MEDS ORDERED: ACETAMINOPHEN 1,000 MG/100 ML VIAL IV STA (03:57)
--- NOTE | 2018-11-25 04:05 | History & Physical Report ---
Date of Service November 25, 2018 Assessment & Plan (1) SOB (shortness of breath): Acute episode now resolved. No respiratory distress. Adequate oxygenation on room air. Unremarkable pulmonary exam. Patient with Waldenstrom 's, on ProCrit. Elevated d-dimer present which is not surprising given patient' s medical comorbidities. US of BL LE negative for DVT. -Observation -Check VQ scan (2) Elevated d-dimer: Plan as above (3) Waldenstrom macroglobulinemia: Patient follows with Dr. Dobson. He is to start chemotherapy next week -Continue Acyclovir (4) Hypertension: Blood pressure normal at present -Continue to monitor -Continue Hydralazine and Metoprolol (5) Hypothyroid: Chronic -Continue Synthroid (6) Parkinsons disease: Chronic. Stable -Continue Carbidopa/Levodopa F/E/N- Heplock. Electrolytes within normal limits. NPO for now for VQ scan Ppx - ambulation Code - Full Dispo - Observation, VQ scan History of Present Illness Chief Complaint: SOB Primary Care Provider: Tho Dickerson Mr. Anne is a pleasant 73yo male with history of HTN, Hypothyroid, CKD III and Waldenstrom's macroglobulinemia presenting to the ER tonight with SOB. Patient was sitting on the couch at appx 20:30 last night when he became acutely short of breath. He denies CP, palpitations, dizziness or syncope. His SOB was severe and caused him to have a panic attack. Patient states that he has had episodes of shortness of breath over the last few months. This one, however, was the most severe and longest lasting. He has no underlying history of cardiac or lung disease. Non-smoker. He is fairly active. Had a compression dressing on his LE recently after having fluid drained. No additional complaints at this time. Patient's breathing has returned to baseline and he feels quite comfortable. ER Course: Tylenol 1gm Allergies Allergy/AdvReac Type Severity Reaction Status Date / Time levofloxacin Allergy Severe KIDNEYS Verified 11/13/18 10:18 HURT,ANKLES SWELL lisinopril Allergy Severe SHORTNESS Verified 11/13/18 10:18 OF BREATH fentanyl Allergy Intermediate RASH Verified 11/13/18 10:18 olmesartan Allergy Intermediate RASH Verified 11/13/18 10:18 tramadol Allergy Intermediate RASH Verified 11/13/18 10:18 oxycodone Allergy Mild ITCHING, Verified 11/13/18 10:18 ALLERGY TO OXYCODONE ONLY pramipexole AdvReac Mild GI SYMPTOMS Verified 11/13/18 10:18 topiramate AdvReac Mild GI SYMPTOMS Verified 11/13/18 10:18 Home Medications Home Medications Medication Instructions Recorded Confirmed Type acyclovir 200 mg capsule 200 mg PO BID cap 11/04/18 11/25/18 History carbidopa 25 mg-levodopa 250 mg 1 tab PO QID 11/04/18 11/25/18 History tablet cholecalciferol (vitamin D3) 5,000 5,000 units PO QAM 11/04/18 11/25/18 History unit tablet hydralazine 10 mg tablet 10 mg PO TID 11/04/18 11/25/18 History levothyroxine 125 mcg tablet 125 mcg PO QAM 11/04/18 11/25/18 History metoprolol tartrate 50 mg tablet 50 mg PO BID 11/04/18 11/25/18 History tamsulosin 0.4 mg capsule 0.4 mg PO HS 11/04/18 11/25/18 History coenzyme Q10 [CoQ-10] 400 mg PO QAM 11/11/18 11/25/18 History hydrocodone-acetaminophen [Capron] 1 tab PO Q12H PRN #10 tab 11/11/18 11/25/18 Rx albuterol sulfate 0.63 mg INH Q6H PRN #12 vial 11/13/18 11/25/18 Rx cinnamon bark 1 cap PO DAILY 11/13/18 11/25/18 History usyrlaz-cknmeaniwpzog-taxpayjk 1 tab PO BID 11/25/18 11/25/18 History [Excedrin Extra Strength] fluticasone 1 - 2 spray INTRANASAL DAILY PRN 11/25/18 11/25/18 History Past Med/Surg History Medical History Leg length discrepancy (Chronic) Bilateral sacroiliitis (Chronic) Parkinson disease (Chronic) Urinary frequency (Chronic) Hypertension (Chronic) Hypothyroid (Chronic) Parkinsons disease (Chronic) Waldenstrom macroglobulinemia (Chronic) Surgical History S/P knee surgery H/O hemorrhoidectomy (Resolved) H/O left knee surgery (Resolved) H/O thumb surgery (Resolved) Family History Mother Diabetes Father Diabetes Social History marital status: Current Living Situation: Spouse current occupational status: retired Feels Safe at Home: Yes Smoking Status: Never smoker Hx Alcohol Use: Yes Alcohol Intake Frequency: holidays/special occasions only Hx Substance Use: No Preferred Language: Lao Review of Systems All systems reviewed & are unremarkable except as noted in HPI & below Physical Exam 2 Vital Signs (Past 24 Hours): Last Vital Signs Temp 36.4 C L 11/24/18 21:33 Pulse 67 11/25/18 02:03 Resp 16 11/25/18 02:03 BP 144/72 H 11/25/18 02:03 Pulse Ox 96 11/25/18 02:03 Physical Exam: General: patient resting comfortably, NAD, non-toxic in appearance, AA&O x 4 Skin: warm, dry, intact, no rashes or lesions HEENT: NC/AT, PERRL, EOMI, anicteric sclera, conjunctiva without injection, external ear normal to inspection and nontender, nares patent, moist mucus membranes, dentition intact, no oropharyngeal lesions, neck supple, trachea midline, no LAD, no thyromegaly, no JVD Heart: +S1/S2, regular, 4/6 TABATHA at right 2nd ICS with radiation across the precordium, back and bilateral carotids Lungs: equal air entry bilaterally, no rales/rhonchi/wheezes Abd: +BS, soft, NT/ND, no masses/organomegaly/ascites Ext: warm, 2+ pulses in UE/LE bilaterally, no clubbing/cyanosis or edema Neuro: nonfocal, patient AA&O x 4, speech intact, no facial droop, moving all extremities on command with equal strength 5/5 Results & Data Laboratory Results Lab Results 11/24/18 11/24/18 11/24/18 Range/Units 21:45 21:45 21:45 WBC 5.70 (4.8-10.8) K/uL RBC 3.74 L (4.7-6.1) M/uL Hgb 10.1 L (14.0-18.0) g/dL Hct 34.7 L (42-52) % MCV 92.8 (80-100) fL MCH 27.0 (25-34) pg MCHC 29.1 L (32-36) g/dL RDW Std Deviation 57.6 H (36.4-46.3) fL RDW Coeff of Silvia 17.0 H (11.5-14.5) % Plt Count 94 L (130-400) K/uL MPV 10.7 H (7.4-10.4) fL Immature Gran % (Auto) 3.0 % Neut % (Auto) 52.7 % Lymph % (Auto) 28.1 % Howell % (Auto) 14.7 % Eos % (Auto) 1.1 % Baso % (Auto) 0.4 % Immature Gran # (Auto) 0.17 H (0.00-0.02) K/uL Neut # (Auto) 3.01 (1.4-6.5) K/uL Lymph # (Auto) 1.60 (1.2-3.4) K/uL Howell # (Auto) 0.84 H (0.11-0.59) K/uL Eos # (Auto) 0.06 (0-0.5) K/uL Baso # (Auto) 0.02 (0-0.2) K/uL Platelet Estimate Decreased (Normal) PT 10.1 (9.0-12.0) Seconds INR 1.0 (0.9-1.1) APTT 27.3 (21.0-31.0) Seconds PTT Ratio 1.1 POC D-Dimer (0-450) ng/mlFEU Sodium 141 (136-145) mmol/L Potassium 4.0 (3.5-5.1) mmol/L Chloride 106 (98-107) mmol/L Carbon Dioxide 29 (21-32) mmol/L Anion Gap 5.0 (3-11) BUN 39 H (7-18) mg/dl Creatinine 1.59 H (0.6-1.4) mg/dl Est Cr Clr Drug Dosing 41.4 ml/min Est GFR ( Amer) 48.8 Est GFR (Non-Af Amer) 42.1 BUN/Creatinine Ratio 24.5 H (10-20) Glucose 101 H (70-99) mg/dl Calcium 8.8 (8.5-10.1) mg/dl Total Bilirubin 0.3 (0.2-1) mg/dl AST 20 (15-37) U/L ALT 6 L (12-78) U/L Alkaline Phosphatase 116 (45-117) U/L Troponin I < 0.015 (0-0.045) ng/ml NT-Pro-B Natriuret Pep 793 (0-900) pg/ml Total Protein 7.4 (6.4-8.2) gm/dl Albumin 2.7 L (3.4-5.0) gm/dl Globulin 4.7 H (2.5-4.0) gm/dl Albumin/Globulin Ratio 0.6 L (0.9-2) 11/24/18 Range/Units 23:57 WBC (4.8-10.8) K/uL RBC (4.7-6.1) M/uL Hgb (14.0-18.0) g/dL Hct (42-52) % MCV (80-100) fL MCH (25-34) pg MCHC (32-36) g/dL RDW Std Deviation (36.4-46.3) fL RDW Coeff of Silvia (11.5-14.5) % Plt Count (130-400) K/uL MPV (7.4-10.4) fL Immature Gran % (Auto) % Neut % (Auto) % Lymph % (Auto) % Howell % (Auto) % Eos % (Auto) % Baso % (Auto) % Immature Gran # (Auto) (0.00-0.02) K/uL Neut # (Auto) (1.4-6.5) K/uL Lymph # (Auto) (1.2-3.4) K/uL Howell # (Auto) (0.11-0.59) K/uL Eos # (Auto) (0-0.5) K/uL Baso # (Auto) (0-0.2) K/uL Platelet Estimate (Normal) PT (9.0-12.0) Seconds INR (0.9-1.1) APTT (21.0-31.0) Seconds PTT Ratio POC D-Dimer > 450 H* (0-450) ng/mlFEU Sodium (136-145) mmol/L Potassium (3.5-5.1) mmol/L Chloride (98-107) mmol/L Carbon Dioxide (21-32) mmol/L Anion Gap (3-11) BUN (7-18) mg/dl Creatinine (0.6-1.4) mg/dl Est Cr Clr Drug Dosing ml/min Est GFR ( Amer) Est GFR (Non-Af Amer) BUN/Creatinine Ratio (10-20) Glucose (70-99) mg/dl Calcium (8.5-10.1) mg/dl Total Bilirubin (0.2-1) mg/dl AST (15-37) U/L ALT (12-78) U/L Alkaline Phosphatase (45-117) U/L Troponin I (0-0.045) ng/ml NT-Pro-B Natriuret Pep (0-900) pg/ml Total Protein (6.4-8.2) gm/dl Albumin (3.4-5.0) gm/dl Globulin (2.5-4.0) gm/dl Albumin/Globulin Ratio (0.9-2) Diagnostic Findings LE US - negative for DVT Code Status & VTE Plan Code Status full VTE Prophylaxis Plan VTE Prophylaxis will be ordered: Yes Critical Care Time Critical Care Time: No _ (1) Hypertension Hypertension type: essential hypertension Qualified Code(s): I10 - Essential (primary) hypertension (2) Hypothyroid Hypothyroidism type: unspecified Qualified Code(s): E03.9 - Hypothyroidism, unspecified
[2018-11-25] MEDS ORDERED: HYDROCODONE/ACETAMOPHEN 5/325MG TAB PO PRN (06:36)
[2018-11-25] MEDS ORDERED: FLUTICASONE PROPIONATE NA SPR 16 GM BTL NAE PRN (06:36)
[2018-11-25] MEDS ORDERED: ACETAMINOPHEN 325 MG TAB PO PRN (06:36)
--- NOTE | 2018-11-25 07:22 | Ultrasound Report ---
BILATERAL LOWER EXTREMITY VENOUS DOPPLER CLINICAL HISTORY: Shortness of breath. Waldenstrom macroglobulinemia. COMPARISON STUDY: Bilateral lower extremity venous Doppler October 19, 2016. TECHNIQUE: Sonography of the deep venous system of the bilateral lower extremities was performed. Co mpression and augmentation were evaluated. FINDINGS: The bilateral common femoral, superficial femoral and popliteal veins were compressible. A ugmentation was normal. Flow was shown within the deep calf vessels. Note is made of bilateral inguin al masses, including a 6.3 x 2.1 x 1.4 cm right inguinal lesion and a 4.6 x 3.4 x 1.2 cm left inguina l lesion. These likely reflect lymph nodes. These lymph nodes contain fatty mikala. There is apparent a djacent soft tissue which appears to encapsulate these lymph nodes. IMPRESSION: 1. No evidence of deep venous thrombus within the bilateral lower extremities. 2. Bilateral inguinal lesions which appear to reflect lymph nodes with apparent associated encapsulat ing soft tissue. These lymph nodes contain fatty hilum however the findings are indeterminate and may be related to a lymphoproliferative process which is new since ultrasound of October 19, 2016. Electronically signed by: Bin [place] M.D. 11/25/2018 7:20 AM
[2018-11-25] MEDS: CHOLECALCIFEROL 1,000 UNITS TAB PO SCH (08:36)
[2018-11-25] MEDS: ACYCLOVIR 200 MG CAP PO SCH ×2 (08:36→20:28)
[2018-11-25] MEDS: CARBIDOPA/LEVODOPA 25-250 1 EA TAB PO SCH ×4 (08:36→20:29)
[2018-11-25] MEDS: HydrALAZINE 10 MG TAB PO SCH ×3 (08:37→20:27)
[2018-11-25] MEDS: METOPROLOL TARTRATE 50 MG TAB PO SCH ×2 (08:37→20:27)
[2018-11-25] MEDS: LEVOTHYROXINE SODIUM 125 MCG TABLET PO SCH (08:37)
[2018-11-25] MEDS ORDERED: COENZYME Q10 400 MG PO SCH (09:00)
[2018-11-25] MEDS ORDERED: CINNAMON BARK PO SCH (09:00)
[2018-11-25 09:07] LABS: BUN Creatinine Ratio 23.7 (10-20); Calcium 8.5 mg/dl (8.5-10.1); Creatinine Clr Calc Pharmacy 44.8 ml/min; Est GFR (African American) 53.7; Est GFR (Non-African American) 46.3; Potassium 4.3 mmol/L (3.5-5.1)
--- NOTE | 2018-11-25 09:59 | Nuclear Medicine Report ---
NM pul vent and perfuse CLINICAL HISTORY: Chest pain. Dyspnea. COMPARISON: None TECHNIQUE: For the ventilation portion of this exam, 32.8 mCi of DTPA was inhaled at 9:15 AM. Immed iately following inhalation, imaging of the chest was carried out in the anterior, posterior, left la teral, right lateral, LPO, RPO, URDU and PIERCE projections. For the perfusion portion of exam, 5.3 mCi of technetium 99m MAA was injected IV at 9:30 AM. Immediately following injection, imaging of the monisha st was carried out in the same projections. FINDINGS: Moderate in homogeneity of perfusion characteristics throughout both hemithoraces. All fin dings appear to be well matched on aerosol component of the study. A major ventilation perfusion mism atch is not identified. IMPRESSION: Low probability of pulmonary embolus. The above report was generated using voice recognition software. It may contain grammatical, syntax or spelling errors. Electronically signed by: Sly Ray M.D. 11/25/2018 9:58 AM
--- NOTE | 2018-11-25 17:28 | Hospitalist Progress Note ---
Date of Service November 25, 2018 Assessment & Plan (1) SOB (shortness of breath): (2) Elevated d-dimer: (3) Waldenstrom macroglobulinemia: (4) Hypertension: (5) Hypothyroid: (6) Parkinsons disease: 73yo male with history of HTN, Hypothyroid, CKD III and Waldenstrom's macroglobulinemia beaded on November 24, 2018 because of SOB. per report Patient was sitting on the couch at appx 20:30 last night when he became acutely short of breath. His SOB was severe and caused him to have a panic attack Acute episode of sob now resolved. US of BL LE negative for DVT. VQ scan of the lung is low probability of PE Waldenstrom macroglobulinemia: follows with Dr. Dobson. He is to start chemotherapy next week, Continue Acyclovir Hypertension, continue current medication, Hydralazine and Metoprolol Hypothyroid, parkinson's disease, stable continue current medication Increase activity PT OT possible need to step before discharge tomorrow Subjective Doing okay, no cough, no shortness of breath, report resting tremor which is not new from his Parkinson's disease, Review of Systems Constitutional: Positive weakness, or fatigue Respiratory: no cough, sputum, wheezing, Cardiac: No chest pain, No orthopnea, No PND, No claudication, No palpitations , Abdomen: No pain, No nausea, No vomiting, No diarrhea, No constipation, No GI bleeding Musculoskeletal: No joint pain, No muscle pain, No swelling, No calf pain, No problem reported : No dysuria, No urinary frequency, No incontinence, No hematuria Neurologic: Obvious tremor negative mentioned in the above, no paralysis, No weakness, Psychiatric: No depression symptoms, No anhedonism, No anxiety, No insomnia, No substance abuse Heme: No abnormal bleeding/bruising, No clotting problems, No swollen lymph nodes, No night sweats Skin: No rash, No itch, No new/changing skin lesions, No color change, No bleeding Physical Exam 2 Vital Signs (Past 24 Hours): Last Vital Signs Temp 36.7 C 11/25/18 15:10 Pulse 59 L 11/25/18 15:10 Resp 20 11/25/18 15:10 BP 160/80 H 11/25/18 15:10 Pulse Ox 97 11/25/18 15:10 Physical Exam: General Appearance: Weak and frail, conversational, WD/WN, no apparent distress, resting tremor, Eyes: normal inspection, PERRL, EOMI, sclerae normal ENT: normal ENT inspection, hearing grossly normal, pharynx normal Neck: supple, no adenopathy, thyroid normal, no JVD, no carotid bruits, trachea midline Respiratory/Chest: chest non-tender, decreased breath sounds, no respiratory distress, no accessory muscle use, Cardiovascular: regular rate, rhythm, no JVD, no murmur Abdomen: normal bowel sounds, non tender, soft, no organomegaly, Extremities: normal range of motion, non-tender, normal inspection, no pedal edema, no calf tenderness, normal capillary refill , pelvis stable, joint has no limited range of motion, capillary refill is normal, no cyanosis clubbing Neurologic/Psychiatric: recreation attendant II-XII nml as tested, no motor/sensory deficits, alert, normal mood/affect, oriented x 3 Skin: normal color, warm/dry, no rash Lymphatic: no adenopathy Results & Data Laboratory Results Laboratory Results - last 24 hr 11/24/18 11/24/18 11/24/18 21:45 21:45 21:45 WBC 5.70 RBC 3.74 L Hgb 10.1 L Hct 34.7 L MCV 92.8 MCH 27.0 MCHC 29.1 L RDW Std Deviation 57.6 H RDW Coeff of Silvia 17.0 H Plt Count 94 L MPV 10.7 H Immature Gran % (Auto) 3.0 Neut % (Auto) 52.7 Lymph % (Auto) 28.1 Cass % (Auto) 14.7 Eos % (Auto) 1.1 Baso % (Auto) 0.4 Immature Gran # (Auto) 0.17 H Neut # (Auto) 3.01 Lymph # (Auto) 1.60 Cass # (Auto) 0.84 H Eos # (Auto) 0.06 Baso # (Auto) 0.02 Platelet Estimate Decreased PT 10.1 INR 1.0 APTT 27.3 PTT Ratio 1.1 POC D-Dimer Sodium 141 Potassium 4.0 Chloride 106 Carbon Dioxide 29 Anion Gap 5.0 BUN 39 H Creatinine 1.59 H Est Cr Clr Drug Dosing 41.4 Est GFR ( Amer) 48.8 Est GFR (Non-Af Amer) 42.1 BUN/Creatinine Ratio 24.5 H Glucose 101 H POC Glucose Calcium 8.8 Magnesium Total Bilirubin 0.3 AST 20 ALT 6 L Alkaline Phosphatase 116 Troponin I < 0.015 NT-Pro-B Natriuret Pep 793 Total Protein 7.4 Albumin 2.7 L Globulin 4.7 H Albumin/Globulin Ratio 0.6 L 11/24/18 11/25/18 11/25/18 23:57 07:46 08:20 WBC RBC Hgb Hct MCV MCH MCHC RDW Std Deviation RDW Coeff of Silvia Plt Count MPV Immature Gran % (Auto) Neut % (Auto) Lymph % (Auto) Cass % (Auto) Eos % (Auto) Baso % (Auto) Immature Gran # (Auto) Neut # (Auto) Lymph # (Auto) Cass # (Auto) Eos # (Auto) Baso # (Auto) Platelet Estimate PT INR APTT PTT Ratio POC D-Dimer > 450 H* Sodium 140 Potassium 4.3 Chloride 106 Carbon Dioxide 28 Anion Gap 6.0 BUN 35 H Creatinine 1.47 H Est Cr Clr Drug Dosing 44.8 Est GFR ( Amer) 53.7 Est GFR (Non-Af Amer) 46.3 BUN/Creatinine Ratio 23.7 H Glucose 81 POC Glucose 88 Calcium 8.5 Magnesium Total Bilirubin AST ALT Alkaline Phosphatase Troponin I NT-Pro-B Natriuret Pep Total Protein Albumin Globulin Albumin/Globulin Ratio 11/25/18 08:20 WBC RBC Hgb Hct MCV MCH MCHC RDW Std Deviation RDW Coeff of Silvia Plt Count MPV Immature Gran % (Auto) Neut % (Auto) Lymph % (Auto) Cass % (Auto) Eos % (Auto) Baso % (Auto) Immature Gran # (Auto) Neut # (Auto) Lymph # (Auto) Cass # (Auto) Eos # (Auto) Baso # (Auto) Platelet Estimate PT INR APTT PTT Ratio POC D-Dimer Sodium Potassium Chloride Carbon Dioxide Anion Gap BUN Creatinine Est Cr Clr Drug Dosing Est GFR ( Amer) Est GFR (Non-Af Amer) BUN/Creatinine Ratio Glucose POC Glucose Calcium Magnesium 2.1 Total Bilirubin AST ALT Alkaline Phosphatase Troponin I NT-Pro-B Natriuret Pep Total Protein Albumin Globulin Albumin/Globulin Ratio _ (1) Hypertension Hypertension type: essential hypertension Qualified Code(s): I10 - Essential (primary) hypertension (2) Hypothyroid Hypothyroidism type: unspecified Qualified Code(s): E03.9 - Hypothyroidism, unspecified
[2018-11-25] MEDS ORDERED: TAMSULOSIN HCL 0.4 MG CAP PO SCH (21:00)
[2018-11-26] MEDS: LEVOTHYROXINE SODIUM 125 MCG TABLET PO SCH (05:55)
[2018-11-26 06:27] LABS: Hematocrit (blood only) 35.2 % (42-52); Hemoglobin 10.4 g/dL (14.0-18.0); Mean Corpuscular Hgb Conc 29.5 g/dL (32-36); Mean Corpuscular Volume 92.6 fL (80-100); Nucleated RBC # (auto) 0.03 K/uL (0-0); Nucleated RBC % (auto) 0.5 %; RDW Coefficient of Variation 16.7 % (11.5-14.5); RDW Standard Deviation 56.5 fL (36.4-46.3); White Blood Count 6.98 K/uL (4.8-10.8)
[2018-11-26 06:30] LABS: Mean Platelet Volume 10.2 fL (7.4-10.4); Platelet Count 88 K/uL (130-400)
[2018-11-26 06:54] LABS: BUN Creatinine Ratio 20.1 (10-20); Calcium 8.7 mg/dl (8.5-10.1); Creatinine Clr Calc Pharmacy 42.2 ml/min; Est GFR (Non-African American) 43.1; Potassium 4.2 mmol/L (3.5-5.1)
[2018-11-26 06:55] LABS: Phosphorus 3.8 mg/dl (2.5-4.9)
[2018-11-26 07:42] LABS: Basophils # (auto) 0.06 K/uL (0-0.2); Basophils % (auto) 0.9 %; Eosinophils # (auto) 0.06 K/uL (0-0.5); Eosinophils % (auto) 0.9 %; Immature Granulocytes # (auto) 0.29 K/uL (0.00-0.02); Immature Granulocytes % (auto) 4.2 %; Lymphocytes # (auto) 2.17 K/uL (1.2-3.4); Lymphocytes % (auto) 31.1 %; Monocytes % (auto) 15.8 %; Neutrophils % (auto) 47.1 %
[2018-11-26] MEDS: METOPROLOL TARTRATE 50 MG TAB PO SCH (09:10)
[2018-11-26] MEDS: CHOLECALCIFEROL 1,000 UNITS TAB PO SCH (09:10)
[2018-11-26] MEDS: CARBIDOPA/LEVODOPA 25-250 1 EA TAB PO SCH (09:10)
[2018-11-26] MEDS: HydrALAZINE 10 MG TAB PO SCH (09:10)
[2018-11-26] MEDS: ACYCLOVIR 200 MG CAP PO SCH (09:11)
--- NOTE | 2018-11-26 16:40 | Discharge Summary ---
Date of Service November 26, 2018 Admission HPI Per Admitting Provider Mr. Anne is a pleasant 73yo male with history of HTN, Hypothyroid, CKD III and Waldenstrom's macroglobulinemia presenting to the ER tonight with SOB. Patient was sitting on the couch at appx 20:30 last night when he became acutely short of breath. He denies CP, palpitations, dizziness or syncope. His SOB was severe and caused him to have a panic attack. Patient states that he has had episodes of shortness of breath over the last few months. This one, however, was the most severe and longest lasting. He has no underlying history of cardiac or lung disease. Non-smoker. He is fairly active. Had a compression dressing on his LE recently after having fluid drained. No additional complaints at this time. Patient's breathing has returned to baseline and he feels quite comfortable. ER Course: Tylenol 1gm Principal Diagnosis no Discharge Data Allergies Allergy/AdvReac Type Severity Reaction Status Date / Time levofloxacin Allergy Severe KIDNEYS Verified 11/13/18 10:18 HURT,ANKLES SWELL lisinopril Allergy Severe SHORTNESS Verified 11/13/18 10:18 OF BREATH fentanyl Allergy Intermediate RASH Verified 11/13/18 10:18 olmesartan Allergy Intermediate RASH Verified 11/13/18 10:18 tramadol Allergy Intermediate RASH Verified 11/13/18 10:18 oxycodone Allergy Mild ITCHING, Verified 11/13/18 10:18 ALLERGY TO OXYCODONE ONLY pramipexole AdvReac Mild GI SYMPTOMS Verified 11/13/18 10:18 topiramate AdvReac Mild GI SYMPTOMS Verified 11/13/18 10:18 Consultations 11/25/18 02:14 ED Decision to Admit Stat Ordered Studies 11/25/18 US venous doppler [facility] Urgent Hospital Course (1) SOB (shortness of breath): (2) Elevated d-dimer: (3) Waldenstrom macroglobulinemia: (4) Hypertension: (5) Hypothyroid: (6) Parkinsons disease: 73yo male with history of HTN, Hypothyroid, CKD III and Waldenstrom's macroglobulinemia beaded on November 24, 2018 because of SOB. per report Patient was sitting on the couch at appx 20:30 last night when he became acutely short of breath. His SOB was severe and caused him to have a panic attack Acute episode of sob, had same episodes last night at 7 PM, the scenario was quite the same, lasting 5-10 minutes, associated with elevated blood pressure, however patient denied palpitation deny facial droop or slurry speeches, denied blurry vision or local weakness, denies sweating, Differential diagnosis include panic attack, arrhythmia, I recommend patient to follow-up with PCP Now resolved. US of BL LE negative for DVT. VQ scan of the lung is low probability of PE Overnight nocturnal Osat studies was unremarkable, he does not have hypoxic episodes during a sleep, two-step exercise was done upon discharge today, he does not have any hypoxic during the walk Waldenstrom macroglobulinemia: follows with Dr. Dobson. He is to start chemotherapy next week, Continue Acyclovir Hypertension, continue current medication, Hydralazine and Metoprolol Hypothyroid, parkinson's disease, stable continue current medication therefore pt's acutely short of breath. , evaluation have been unremarkable, he has Hypertension with mild elevated blood pressure, need to follow up with pcp to adjust medicine if need possible have panic attack, please follow up with pcp chronic kidney disease Hypothyroid, parkinson's disease, , need to follow up with pcp Subjective upon discharge, Chronic resting tremor which is not new Doing okay, no cough, no shortness of breath, Review of Systems upon discharge Constitutional: Positive weakness, or fatigue Respiratory: no cough, sputum, wheezing, Cardiac: No chest pain, No orthopnea, No PND, No claudication, No palpitations , Abdomen: No pain, No nausea, No vomiting, No diarrhea, No constipation, No GI bleeding Musculoskeletal: No joint pain, No muscle pain, No swelling, No calf pain, No problem reported : No dysuria, No urinary frequency, No incontinence, No hematuria Neurologic: Obvious tremor negative mentioned in the above, no paralysis, No weakness, Psychiatric: No depression symptoms, No anhedonism, No anxiety, No insomnia, No substance abuse Heme: No abnormal bleeding/bruising, No clotting problems, No swollen lymph nodes, No night sweats Skin: No rash, No itch, No new/changing skin lesions, No color change, No bleeding Physical Exam upon discharge General Appearance: Weak and frail, conversational, WD/WN, no apparent distress , resting tremor, Eyes: normal inspection, PERRL, EOMI, sclerae normal ENT: normal ENT inspection, hearing grossly normal, pharynx normal Neck: supple, no adenopathy, thyroid normal, no JVD, no carotid bruits, trachea midline Respiratory/Chest: chest non-tender, decreased breath sounds, no respiratory distress, no accessory muscle use, Cardiovascular: regular rate, rhythm, no JVD, no murmur Abdomen: normal bowel sounds, non tender, soft, no organomegaly, Extremities: normal range of motion, non-tender, normal inspection, no pedal edema, no calf tenderness, normal capillary refill , pelvis stable, joint has no limited range of motion, capillary refill is normal, no cyanosis clubbing 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, no motor/sensory deficits, alert, normal mood/affect, oriented x 3 Skin: normal color, warm/dry, no rash Lymphatic: no adenopathy Lab data upon discharge: Laboratory Results - last 24 hr 11/26/18 11/26/18 05:54 05:54 WBC 6.98 RBC 3.80 L Hgb 10.4 L Hct 35.2 L MCV 92.6 MCH 27.4 MCHC 29.5 L RDW Std Deviation 56.5 H RDW Coeff of Silvia 16.7 H Plt Count 88 L MPV 10.2 Immature Gran % (Auto) 4.2 Neut % (Auto) 47.1 Lymph % (Auto) 31.1 Lyman % (Auto) 15.8 Eos % (Auto) 0.9 Baso % (Auto) 0.9 Immature Gran # (Auto) 0.29 H Neut # (Auto) 3.30 Lymph # (Auto) 2.17 Lyman # (Auto) 1.10 H Eos # (Auto) 0.06 Baso # (Auto) 0.06 Absolute Nucleated RBC 0.03 H Nucleated RBC % (auto) 0.5 Sodium 138 Potassium 4.2 Chloride 103 Carbon Dioxide 30 Anion Gap 5.0 BUN 31 H Creatinine 1.56 H Est Cr Clr Drug Dosing 42.2 Est GFR ( Amer) 50.0 Est GFR (Non-Af Amer) 43.1 BUN/Creatinine Ratio 20.1 H Glucose 77 Calcium 8.7 Phosphorus 3.8 Magnesium 2.0 Total Time Total Time Spent Total Time Spent (In Minutes): 35 Total Time Includes: Examination of the Patient, Discharge Planning, Medication Reconciliation and Communication With Other Providers Discharge Plan Discharge Items Patient Disposition: Home - Self-Care Reason For Visit: SOB Discharge Diagnosis: acutely short of breath possible panic attack Condition: Fair Discharge Goals: Decrease discomfort and Diagnostic testing Activity: Resume your previous activity Non-emergency contact: Primary Care Provider Call non-emergency contact if: you have any medication questions Diet: Heart Healthy Addtl Provider Instructions: you was having acutely short of breath. evaluation have been unremarkable, you have Hypertension with mild elevated blood pressure, need to follow up with pcp to adjust medicine if need you possible have panic attack, please follow up with pcp you have chronic kidney disease Hypothyroid, parkinson's disease, , need to follow up with pcp you need to follow up with your primary care physician in 1 week, - take medication as instructed, never overdose or any misuse, or take with alcohol, because misuse of medicine may cause organ damage or , call me , or your primary care physician if have questions of discharge medicaitons. - call your primary care physician, or go to local emergency room if has any fever/chill, chest pain, shortness of breathing, nausea/vomiting/abdominal pain , facial droop/slurry speech/local weakness, or if has any questions. - fall precaution - diet as instructed Prescriptions: Continue carbidopa-levodopa 25-250 mg tablet 1 tab PO QID RF: 0 acyclovir [Zovirax] 200 mg capsule 200 mg PO BID RF: 0 cholecalciferol (vitamin D3) 5,000 unit tablet 5,000 units PO QAM RF: 0 tamsulosin [Flomax] 0.4 mg capsule 0.4 mg PO HS RF: 0 metoprolol tartrate [Lopressor] 50 mg tablet 50 mg PO BID RF: 0 levothyroxine [Synthroid] 125 mcg tablet 125 mcg PO QAM RF: 0 hydralazine 10 mg tablet 10 mg PO TID RF: 0 coenzyme Q10 [CoQ-10] 100 mg Capsule 400 mg PO QAM RF: 0 hydrocodone-acetaminophen [[place]] 5-325 mg tablet 1 tab PO Q12H PRN (Reason: pain) Qty: 10 RF: 0 albuterol sulfate 0.63 mg/3 mL solution for nebulization 0.63 mg INH Q6H PRN (Reason: bronchospasm) Qty: 12 RF: 0 cinnamon bark 500 mg Capsule 1 cap PO DAILY RF: 0 fluticasone 50 mcg/actuation spray,suspension 1 - 2 spray Intranasal DAILY PRN (Reason: Congestion) RF: 0 [id number] [Excedrin Extra Strength] 250-250-65 mg Tablet 1 tab PO BID RF: 0 Stand-Alone Forms: [facility] Discharge Orders: Discharge Order (Routine); Ordered 11/26/18 Ordered By: Fabian Blue Admission Data Admit Date/Time: 11/25/18 03:50 Attending Provider: Fabian Blue Admit Provider: Jennifer Lind Primary Care Provider: Tho Dickerson Other Providers: Jennifer Lind Service: Medical Other Interventions: Discharge Summary Assessment (RN) Last Done: 11/26/18 11:04 DC Date/Time DO NOT enter until pt leaves facility: 11/26/18 12:49
== END 2018-11-26 12:49 | disposition home or self-care (01) ==
LOC: ED 21:29 → 4W 21:29 → SUATTDRO 11-25 03:50 → 4W 11-25 06:09

== ENCOUNTER 2021-01-21 01:17 | Inpatient (IN) ==
[2021-01-21] MEDS ORDERED: HYDROmorphone INJ 0.5 MG/0.5 ML SYR IV STA ×2 (01:24→02:30)
--- NOTE | 2021-01-21 01:25 | Emergency Department Note ---
Impression & Plan Closed fracture of left hip ED Provider Note Name: MARTIN TORRES Age: 75 Sex: M Arrives Via: Ambulance Informant: Patient, EMS ED Provider: Fabian Godoy MD Chief Complaint: Left hip pain Impression: Closed Fracture of Left Hip Medical Decision Making: Jose Raul 75 yr old male tripped and fell at home landing on left hip. No blood thinner use and did not strike head nor have LOC. Denies headache, neck pain, stroke symptoms nor other concerns. Left hip fractured with good pulses and pain controlled. Pre-op order-set used and hospitalist consulted for further management. Prior Medical Record and Triage/Nursing Notes reviewed by Me Additional history obtained from chart, Differentials: Hip fracture, pelvic fracture, infection, nonmechanical fall, ich, other injuries, electrolyte imbalance, anemia, amongst others. Vital Signs: reviewed and remarkable for no significant abnormalities Interventions: See Below Labs:Reviewed and remarkable for no significant abnormalities Imaging:X ray results are stated below per my interpretation: Chest: 1 view: No infiltrate, no effusion, normal cardiac border. Left hip xray: Left hip fracture EKG:Unable to interpret due to stimulator Cardiac/Tele Monitoring: Cardiac Monitoring: An Order was placed for continuous cardiac monitoring. The monitor shows a rate of 65 with a normal sinus rhythm. Consults:Dr Stacia SHAH Hospitalist Plan: Disposition:Hospitalization. Condition: Good History of Present Illness:Jose Raul 75 yr old male who arrives via EMS for left hip pain. Patient notes he was walking through bathroom when he slipped on the floor. Landed on left hip. No head nor neck injury. Denies headache, neck pain, cp, sob, other injuries, back pain, abdominal pain, fevers, chills, cough, syncope, nausea, vomiting, nor other symptoms. He makes clear there was no near syncope. States this was a mechanical fall. Denies any blood thinner use. Denies frequent falls. ROS: See above HPI for pertinent positives & negatives. A total of 10 systems reviewed and were otherwise negative. Past Medical History:See Below Past Surgical History:See Below Family History:See Below Social History:See Below Home Medications:See Below Allergies:See Below Vitals:Blood Pressure: 191/105, Pulse 52, RR 22, T 36.7C, O2 95% on RA Physical Exam: GENERAL: Patient is uncomfortable appearing and in moderate distress. Frail appearing EYES: No scleral icterus, unremarkable pupils. ENT: Mucous membranes moist, no nasal congestion. NECK: No masses appreciated, nomeningismus, trachea is midline. RESPIRATORY: No dyspnea. Clear to auscultation and equal bilaterally. No wheeze, no rhonchi. CARDIOVASCULAR: Regular rate and rhythm.No murmurs, rubs, gallops appreciated. GASTROINTESTINAL: Abdomen soft, non-tender, no peritonitis.Bowel sounds positive.No masses appreciated. BACK: No midline tenderness, no CVA tenderness EXTREMITIES: Normal motion all extremities, no cyanosis, no edema. Left leg mildly shortened and externally rotated with good pulses and distal movement. Pain with movement left hip and with palpation over hip NEUROLOGIC: Alert and oriented, no acute motor or sensory deficits, no focal weakness, cranial nerves grossly intact. SKIN: No rash, no jaundice, no diaphoresis. PSYCH: Appropriate GCS: 15 ED Course: Times/Reassessments: improving pain, BP a bit high though becoming more comfortable Fabian Godoy MD Past Med/Surg History Medical History Anemia no known hx of blood transfusion Aneurysm Dilated aortic root 4cm (per 12/02/19 cardiology note) Aortic stenosis "Moderate" Chronic back pain Chronic kidney disease, stage 3 baseline creatinine 1.6-1.8 per chart review, follows Dr. Parks Depression Hypertension Hypothyroid Osteoarthritis Parkinsons disease Follows with neurology (Dr. Hernandez) Poorly-controlled hypertension Presence of neurostimulator GPI deep brain stimulator for tremor, implanted 06/2020 (left chest), [employer], will bring remote AM DOS Spinal stenosis of lumbar region Waldenstrom macroglobulinemia diagnosed 2004- on Imbruvica Surgical History H/O hemorrhoidectomy H/O left knee surgery x3 (ACL, meniscus repairs) H/O thumb surgery right thumb History of colonoscopy Hx of brain surgery [place] [place] Family History Mother Family history of diabetes mellitus Father Family history of diabetes mellitus Unknown Liver cancer Other No family history of adverse response to anesthesia Social History (Reviewed 01/21/21 @ 09:05 by TAWANNA Strickland Smoking Status: Never smoker Second Hand Exposure: Yes (mother smoked); Hx Alcohol Use: Yes Alcohol type: beer and wine Hx Substance Use: No Preferred Language: Telugu Communication Ability: Effective Visual Impairment: Limited Hearing Ability: Normal Body Rolling Machine Tender Required: No Beliefs That Will Affect Care: None marital status: Current Living Situation: Spouse Current Living Situation Comment: house current occupational status: retired Other Information That Helps Us Care for You: No Feels Safe at Home: Yes Safety Concerns: Feels Safe At This Time Assistive Devices: Glasses, Hearing Aid - Bilateral and Walker Allergies Allergies Allergy/AdvReac Type Severity Reaction Status Date / Time levofloxacin Allergy Severe Kidney Verified 01/20/21 10:30 injury, ankle swelling lisinopril Allergy Severe Dyspnea Verified 01/20/21 10:30 fentanyl Allergy Intermediate Rash Verified 01/20/21 10:30 olmesartan Allergy Intermediate Rash Verified 01/20/21 10:30 tramadol Allergy Intermediate Rash Verified 01/20/21 10:30 oxycodone Allergy Mild Itching Verified 01/20/21 10:30 pramipexole AdvReac Mild GI symptoms Verified 01/20/21 10:30 topiramate AdvReac Mild GI symptoms Verified 01/20/21 10:30 Home Meds Home Medications Medication Instructions Recorded Confirmed cholecalciferol (vitamin D3) 125 5,000 units PO QAM 11/04/18 01/21/21 mcg (5,000 unit) tablet tamsulosin 0.4 mg capsule 0.4 mg PO HS 11/04/18 01/21/21 coenzyme Q10 [CoQ-10] 400 mg PO QAM 11/11/18 01/21/21 levothyroxine 150 mcg capsule 150 mcg PO QAM 06/28/19 01/21/21 Imbruvica 280 mg PO QAM 09/28/19 01/21/21 metoprolol tartrate 50 mg tablet 50 mg PO DIRECTED 04/08/20 01/21/21 acyclovir 200 mg PO BID 12/05/20 01/21/21 carbidopa-levodopa 1 tab PO QID 12/05/20 01/21/21 losartan 50 mg PO PM 12/05/20 01/21/21 bupropion HCl 150 mg PO BID 01/21/21 01/21/21 Previous Rx's Medication Instructions Recorded hydralazine 50 mg tablet 50 mg PO TID #270 tab 05/24/20 Results & Data (ED) Vital Signs Vital Signs - 24 hr 01/21/21 04:00 Pulse Rate 61 Respiratory Rate 18 Blood Pressure 199/106 H Blood Pressure Mean 137 Pulse Oximetry 93 Laboratory Data Result diagrams: 01/21/21 01:25 01/21/21 01:25 Lab Results 01/21/21 01/21/21 01/21/21 Range/Units 01:25 01:25 01:25 WBC 6.97 (4.8-10.8) K/uL RBC 4.53 L (4.7-6.1) M/uL Hgb 13.1 L (14.0-18.0) g/dL Hct 40.4 L (42-52) % MCV 89.2 (80-100) fL MCH 28.9 (25-34) pg MCHC 32.4 (32-36) g/dL RDW Std Deviation 46.5 H (36.4-46.3) fL RDW Coeff of Silvia 14.2 (11.5-14.5) % Plt Count 122 L (130-400) K/uL MPV 12.0 H (7.4-10.4) fL Neutrophils % (Manual) 57.8 % Lymphocytes % (Manual) 11.4 % Monocytes % (Manual) 7.9 % Eosinophils % (Manual) 0.9 % Basophils % (Manual) 0.9 % Neutrophils # (Manual) 4.03 (1.4-6.5) K/uL Total Absolute Neuts 4.03 (1.4-6.5) K/uL Lymphocytes # (Manual) 0.79 L (1.2-3.4) K/uL Total Abs Lymphocytes 2.27 (1.2-3.4) K/uL Monocytes # (Manual) 0.55 (0.11-0.59) K/uL Eosinophils # (Manual) 0.06 (0-0.5) K/uL Basophils # (Manual) 0.06 (0-0.2) K/uL Large Granular Lymphs 21.1 % # Lrg Granular Lymphs 1.47 K/uL Giant Platelets 1+ PT 9.8 (9.0-12.0) Seconds INR 1.0 (0.9-1.1) APTT 23.3 (21.0-31.0) Seconds PTT Ratio 0.9 Sodium 142 (136-145) mmol/L Potassium 3.9 (3.5-5.1) mmol/L Chloride 109 H (98-107) mmol/L Carbon Dioxide 27 (21-32) mmol/L Anion Gap 6.0 (3-11) BUN 36 H (7-18) mg/dl Creatinine 1.69 H (0.6-1.4) mg/dl Est Cr Clr Drug Dosing 34.8 ml/min Est GFR ( Amer) 44.7 Est GFR (Non-Af Amer) 38.6 BUN/Creatinine Ratio 21.1 H (10-20) Glucose 108 H (70-99) mg/dl Calcium 8.8 (8.5-10.1) mg/dl Total Bilirubin 0.4 (0.2-1) mg/dl AST 14 L (15-37) U/L ALT 6 L (12-78) U/L Alkaline Phosphatase 75 (45-117) U/L Total Protein 6.5 (6.4-8.2) gm/dl Albumin 3.6 (3.4-5.0) gm/dl Globulin 2.9 (2.5-4.0) gm/dl Albumin/Globulin Ratio 1.2 (0.9-2) Urine Color Urine Appearance (Clear) Urine pH (4.5-7.5) Ur Specific Crescent (1.000-1.030) Urine Protein (Negative) Urine Glucose (UA) (Negative) Urine Ketones (Negative) Urine Blood (Negative) Urine Nitrite (Negative) Urine Bilirubin (Negative) Urine Urobilinogen (Negative) Ur Leukocyte Esterase (Negative) Urine WBC (Auto) (0-5) /hpf Urine RBC (Auto) (0-4) /hpf U Hyaline Cast (Auto) (0-5) /lpf U Epithel Cells (Auto) (0-5) /lpf Urine Bacteria (Auto) (Negative) COVID-19 Eval Order SARS-CoV-2 (PCR) (Negative) Influenza Type A (PCR) (Neg) Influenza Type B (PCR) (Neg) RSV (RT-PCR) (Neg) Blood Type Antibody Screen 01/21/21 01/21/21 01/21/21 Range/Units 01:33 01:41 02:54 WBC (4.8-10.8) K/uL RBC (4.7-6.1) M/uL Hgb (14.0-18.0) g/dL Hct (42-52) % MCV (80-100) fL MCH (25-34) pg MCHC (32-36) g/dL RDW Std Deviation (36.4-46.3) fL RDW Coeff of Silvia (11.5-14.5) % Plt Count (130-400) K/uL MPV (7.4-10.4) fL Neutrophils % (Manual) % Lymphocytes % (Manual) % Monocytes % (Manual) % Eosinophils % (Manual) % Basophils % (Manual) % Neutrophils # (Manual) (1.4-6.5) K/uL Total Absolute Neuts (1.4-6.5) K/uL Lymphocytes # (Manual) (1.2-3.4) K/uL Total Abs Lymphocytes (1.2-3.4) K/uL Monocytes # (Manual) (0.11-0.59) K/uL Eosinophils # (Manual) (0-0.5) K/uL Basophils # (Manual) (0-0.2) K/uL Large Granular Lymphs % # Lrg Granular Lymphs K/uL Giant Platelets PT (9.0-12.0) Seconds INR (0.9-1.1) APTT (21.0-31.0) Seconds PTT Ratio Sodium (136-145) mmol/L Potassium (3.5-5.1) mmol/L Chloride (98-107) mmol/L Carbon Dioxide (21-32) mmol/L Anion Gap (3-11) BUN (7-18) mg/dl Creatinine (0.6-1.4) mg/dl Est Cr Clr Drug Dosing ml/min Est GFR ( Amer) Est GFR (Non-Af Amer) BUN/Creatinine Ratio (10-20) Glucose (70-99) mg/dl Calcium (8.5-10.1) mg/dl Total Bilirubin (0.2-1) mg/dl AST (15-37) U/L ALT (12-78) U/L Alkaline Phosphatase (45-117) U/L Total Protein (6.4-8.2) gm/dl Albumin (3.4-5.0) gm/dl Globulin (2.5-4.0) gm/dl Albumin/Globulin Ratio (0.9-2) Urine Color Yellow Urine Appearance Clear (Clear) Urine pH 7.0 (4.5-7.5) Ur Specific Crescent 1.015 (1.000-1.030) Urine Protein Negative (Negative) Urine Glucose (UA) Negative (Negative) Urine Ketones Negative (Negative) Urine Blood Trace H (Negative) Urine Nitrite Negative (Negative) Urine Bilirubin Negative (Negative) Urine Urobilinogen Negative (Negative) Ur Leukocyte Esterase Negative (Negative) Urine WBC (Auto) 0 (0-5) /hpf Urine RBC (Auto) 10-30 H (0-4) /hpf U Hyaline Cast (Auto) 1-5 (0-5) /lpf U Epithel Cells (Auto) 0-5 (0-5) /lpf Urine Bacteria (Auto) Negative (Negative) COVID-19 Eval Order CovFluRsv at [facility] SARS-CoV-2 (PCR) (Negative) Influenza Type A (PCR) (Neg) Influenza Type B (PCR) (Neg) RSV (RT-PCR) (Neg) Blood Type A Positive Antibody Screen NEGATIVE 01/21/21 Range/Units 02:54 WBC (4.8-10.8) K/uL RBC (4.7-6.1) M/uL Hgb (14.0-18.0) g/dL Hct (42-52) % MCV (80-100) fL MCH (25-34) pg MCHC (32-36) g/dL RDW Std Deviation (36.4-46.3) fL RDW Coeff of Silvia (11.5-14.5) % Plt Count (130-400) K/uL MPV (7.4-10.4) fL Neutrophils % (Manual) % Lymphocytes % (Manual) % Monocytes % (Manual) % Eosinophils % (Manual) % Basophils % (Manual) % Neutrophils # (Manual) (1.4-6.5) K/uL Total Absolute Neuts (1.4-6.5) K/uL Lymphocytes # (Manual) (1.2-3.4) K/uL Total Abs Lymphocytes (1.2-3.4) K/uL Monocytes # (Manual) (0.11-0.59) K/uL Eosinophils # (Manual) (0-0.5) K/uL Basophils # (Manual) (0-0.2) K/uL Large Granular Lymphs % # Lrg Granular Lymphs K/uL Giant Platelets PT (9.0-12.0) Seconds INR (0.9-1.1) APTT (21.0-31.0) Seconds PTT Ratio Sodium (136-145) mmol/L Potassium (3.5-5.1) mmol/L Chloride (98-107) mmol/L Carbon Dioxide (21-32) mmol/L Anion Gap (3-11) BUN (7-18) mg/dl Creatinine (0.6-1.4) mg/dl Est Cr Clr Drug Dosing ml/min Est GFR ( Amer) Est GFR (Non-Af Amer) BUN/Creatinine Ratio (10-20) Glucose (70-99) mg/dl Calcium (8.5-10.1) mg/dl Total Bilirubin (0.2-1) mg/dl AST (15-37) U/L ALT (12-78) U/L Alkaline Phosphatase (45-117) U/L Total Protein (6.4-8.2) gm/dl Albumin (3.4-5.0) gm/dl Globulin (2.5-4.0) gm/dl Albumin/Globulin Ratio (0.9-2) Urine Color Urine Appearance (Clear) Urine pH (4.5-7.5) Ur Specific Crescent (1.000-1.030) Urine Protein (Negative) Urine Glucose (UA) (Negative) Urine Ketones (Negative) Urine Blood (Negative) Urine Nitrite (Negative) Urine Bilirubin (Negative) Urine Urobilinogen (Negative) Ur Leukocyte Esterase (Negative) Urine WBC (Auto) (0-5) /hpf Urine RBC (Auto) (0-4) /hpf U Hyaline Cast (Auto) (0-5) /lpf U Epithel Cells (Auto) (0-5) /lpf Urine Bacteria (Auto) (Negative) COVID-19 Eval Order SARS-CoV-2 (PCR) NEGATIVE (Negative) Influenza Type A (PCR) Negative (Neg) Influenza Type B (PCR) Negative (Neg) RSV (RT-PCR) Negative (Neg) Blood Type Antibody Screen Administered Medications Acetaminophen (Acetaminophen 325 Mg Tab) 650 mg PO Q4H PRN PRN Reason: pain/fever Stop: 02/20/21 05:03 Last Admin: 01/21/21 21:02 Dose: 650 mg Documented by: [id number] Acyclovir (Acyclovir 200 Mg Cap) 200 mg PO BID [facility] Stop: 02/20/21 08:59 Last Admin: 01/21/21 21:04 Dose: 200 mg Documented by: [id number] Admin: 01/21/21 10:01 Dose: 200 mg Documented by: [id number] Aspirin (Aspirin 81 Mg Ectab) 81 mg PO BID [facility] Stop: 02/20/21 20:59 Last Admin: 01/21/21 21:03 Dose: 81 mg Documented by: [id number] Bupropion HCl (Bupropion Sr 150 Mg Tabcr) 150 mg PO BID [facility] Stop: 02/20/21 08:59 Last Admin: 01/21/21 21:04 Dose: 150 mg Documented by: [id number] Admin: 01/21/21 10:00 Dose: 150 mg Documented by: [id number] Carbidopa/Levodopa (Carbidopa/Levodopa 25-250 1 Ea Tab) 1 tab PO QID [facility] Stop: 02/20/21 08:59 Last Admin: 01/21/21 21:03 Dose: 1 tab Documented by: [id number] Admin: 01/21/21 17:21 Dose: 1 tab Documented by: [id number] Admin: 01/21/21 16:59 Dose: Not Given Documented by: [id number] Admin: 01/21/21 10:00 Dose: 1 tab Documented by: [id number] Hydralazine HCl (Hydralazine Hcl 20 Mg/Ml Vial) 10 mg IV Q4H PRN PRN Reason: Blood Pressure - High Stop: 02/20/21 04:16 Last Admin: 01/21/21 05:43 Dose: 10 mg Documented by: [id number] Hydralazine HCl (Hydralazine Tab 50 Mg Tab) 50 mg PO TID [facility] Stop: 02/20/21 08:59 Last Admin: 01/21/21 21:04 Dose: 50 mg Documented by: [id number] Admin: 01/21/21 17:21 Dose: 50 mg Documented by: [id number] Admin: 01/21/21 10:00 Dose: 50 mg Documented by: [id number] Hydromorphone HCl (Hydromorphone Inj 0.5 Mg/0.5 Ml Syr) 0.5 mg IV Q3H PRN PRN Reason: Pain (6,7,8,9,10) Stop: 02/04/21 05:03 Last Admin: 01/21/21 12:29 Dose: 0.5 mg Documented by: [id number] Admin: 01/21/21 05:44 Dose: 0.5 mg Documented by: [id number] Lactated Ringer's (Lr) 1,000 mls @ 80 mls/hr IV .[id number] GREG Stop: 02/20/21 05:03 Last Admin: 01/21/21 22:30 Dose: 80 mls/hr Documented by: [id number] Infusion: 01/21/21 18:12 Dose: 80 mls/hr Documented by: [id number] Admin: 01/21/21 05:42 Dose: 80 mls/hr Documented by: [id number] Ibrutinib (Pt's Own Med: Ibrutinib 140mg) 2 ea PO DAILY [facility]; Protocol Stop: 02/20/21 09:59 Last Admin: 01/21/21 10:05 Dose: 2 ea Documented by: [id number] Cosigned by: [id number] Levothyroxine Sodium (Levothyroxine Sodium 150 Mcg Tablet) 150 mcg PO DAILYBB [facility] Stop: 02/20/21 06:29 Last Admin: 01/21/21 10:00 Dose: 150 mcg Documented by: [id number] Admin: 01/21/21 06:25 Dose: Not Given Documented by: [id number] Ondansetron HCl (Ondansetron Inj 2 Mg/Ml 2 Ml Vial) 4 mg IV Q6H PRN PRN Reason: Nausea Stop: 02/20/21 05:03 Last Admin: 01/21/21 17:31 Dose: 4 mg Documented by: [id number] Senna/Docusate Sodium (Docusate Sodium/Senna 50/8.6mg Tab) 2 tab PO HS [facility] Stop: 02/20/21 20:59 Last Admin: 01/21/21 21:04 Dose: 2 tab Documented by: [id number] Tamsulosin HCl (Tamsulosin Hcl 0.4 Mg Cap) 0.4 mg PO HS [facility] Stop: 02/20/21 20:59 Last Admin: 01/21/21 21:04 Dose: 0.4 mg Documented by: [id number] Vitamin D (Cholecalciferol 1,000 Units 25 Mcg Tab) 5,000 units PO QAM [facility] Stop: 02/20/21 08:59 Last Admin: 01/21/21 10:00 Dose: 5,000 units Documented by: [id number] Discontinued Medications Bacitracin (Bacitracin Inj 50,000 Unit Vial) Confirm Administered Dose 50,000 units .ROUTE .STK-MED ONE Stop: 01/21/21 14:26 Last Admin: 01/21/21 15:37 Dose: 50,000 units Documented by: [id number] Bupivacaine HCl (Bupivacaine 0.5 % 5 Mg/1 Ml Mpf 30ml Vial) Confirm Administered Dose 30 ml .ROUTE .STK-MED ONE Stop: 01/21/21 13:35 Last Admin: 01/21/21 13:38 Dose: Not Given Documented by: [id number] Bupivacaine HCl/Epinephrine Bitart (Bupivacaine/Epinephrine 0.5% Mpf 1:200,000 30 Ml Vial) Confirm Administered Dose 30 ml .ROUTE .STK-MED ONE Stop: 01/21/21 13:36 Last Admin: 01/21/21 15:34 Dose: Not Given Documented by: [id number] Bupivacaine HCl/Epinephrine Bitart (Bupivacaine/Epinephrine 0.5% Mpf 1:200,000 30 Ml Vial) Confirm Administered Dose 30 ml .ROUTE .STK-MED ONE Stop: 01/21/21 14:26 Last Admin: 01/21/21 15:35 Dose: 30 ml Documented by: [id number] Bupivacaine HCl/Epinephrine Bitart (Bupivacaine/Epinephrine 0.5% Mpf 1:200,000 30 Ml Vial) Confirm Administered Dose 30 ml .ROUTE .STK-MED ONE Stop: 01/21/21 14:35 Last Admin: 01/21/21 15:36 Dose: 30 ml Documented by: [id number] Cefazolin Sodium (Cefazolin 2,000 Mg/15 Ml Iv Push) Confirm Administered Dose 2,000 mg IV .STK-MED ONE Stop: 01/21/21 13:49 Last Admin: 01/21/21 13:49 Dose: 2,000 mg Documented by: [id number] Epinephrine HCl (Epinephrine Inj 1 Mg/Ml Amp) Confirm Administered Dose 1 mg .ROUTE .STK-MED ONE Stop: 01/21/21 13:35 Last Admin: 01/21/21 13:38 Dose: Not Given Documented by: [id number] Hydromorphone HCl (Hydromorphone Inj 0.5 Mg/0.5 Ml Syr) 0.5 mg IV NOW STA Stop: 01/21/21 01:25 Last Admin: 01/21/21 01:33 Dose: 0.5 mg Documented by: [id number] Hydromorphone HCl (Hydromorphone Inj 0.5 Mg/0.5 Ml Syr) 0.5 mg IV NOW STA Stop: 01/21/21 02:31 Last Admin: 01/21/21 02:49 Dose: 0.5 mg Documented by: [id number] Cefazolin Sodium (Ancef 2000mg) 2,000 mg in 15 mls @ 3.75 mls/min IV PREOP ONE Stop: 01/21/21 13:56 Last Admin: 01/21/21 13:56 Dose: Not Given Documented by: [id number] Cefazolin Sodium (Ancef 1000mg) 1,000 mg in 7.5 mls @ 2.5 mls/min IV PREOP ONE Stop: 01/21/21 16:02 Last Admin: 01/21/21 14:53 Dose: 2.5 mls/min Documented by: [id number] Prochlorperazine 5 mg/ Syringe 5 mls @ 5 mls/min IV ONE ONE Stop: 01/21/21 20:16 Last Admin: 01/21/21 20:36 Dose: 5 mls/min Documented by: [id number] Miscellaneous (Imbruvica~Order Awaiting Action) 1 ea N/A QS GREG Stop: 02/20/21 07:59 Last Admin: 01/21/21 09:00 Dose: 1 ea Documented by: [id number] Prochlorperazine (Prochlorperazine Maleate 5 Mg Tab) 5 mg PO NOW ONE Stop: 01/21/21 20:11 Last Admin: 01/21/21 22:23 Dose: Not Given Documented by: [id number] Imaging Data Radiologist's Impression: Hip X-Ray 01/21/21 01:23 XR hip LT min 2V HISTORY: 75 years-old Male left hip pain acute left hip pain status post fall COMPARISON: None TECHNIQUE: 2 views of the left hip FINDINGS: There is an acute mildly impacted basicervical fracture of the left femur which demonstrates mild impaction and dorsal displacement of 9 mm. Mild to moderate left hip osteoarthritis. No avascular necrosis. No dislocation. IMPRESSION: Acute mildly impacted and displaced basicervical fracture of the left femur ACT 112: Negative or not required by law. The above report was generated using voice recognition software. It may contain grammatical, syntax or spelling errors. Electronically signed by: Jeffry Boss M.D. 01/21/2021 6:37 AM Discharge Plan Visit Data Chief Complaint: Fall Stated Complaint: FALL/HIP PAIN ED Provider: Fabian Godoy Discharge Problem: Closed fracture of left hip Patient Disposition: Admitted As Inpatient Discharge Instructions Interventions: ED Discharge Assessment Last Done: 01/21/21 04:28 Discharge Problem: Closed fracture of left hip Qualifiers: Encounter type: initial encounter Qualified Code(s): S72.002A - Fracture of unspecified part of neck of left femur, initial encounter for closed fracture
[2021-01-21 01:45] LABS: Partial Thromboplastin Ratio 0.9; Partial Thromboplastin Time 23.3 Seconds (21.0-31.0); Prothrombin Time 9.8 Seconds (9.0-12.0)
[2021-01-21 01:51] LABS: Albumin Level 3.6 gm/dl (3.4-5.0); BUN Creatinine Ratio 21.1 (10-20); Calcium 8.8 mg/dl (8.5-10.1); Creatinine Clr Calc Pharmacy 34.8 ml/min; Est GFR (African American) 44.7; Est GFR (Non-African American) 38.6; Potassium 3.9 mmol/L (3.5-5.1)
[2021-01-21 01:54] LABS: Albumin Globulin Ratio 1.2 (0.9-2); Bilirubin,Total 0.4 mg/dl (0.2-1); Globulin 2.9 gm/dl (2.5-4.0); Total Protein 6.5 gm/dl (6.4-8.2)
[2021-01-21] MEDS ORDERED: HYDROmorphone INJ 0.5 MG/0.5 ML SYR IV PRN ×2 (02:30→05:04)
[2021-01-21 02:37] LABS: Hematocrit (blood only) 40.4 % (42-52); Hemoglobin 13.1 g/dL (14.0-18.0); Mean Corpuscular Hemoglobin 28.9 pg (25-34); Mean Corpuscular Hgb Conc 32.4 g/dL (32-36); Mean Corpuscular Volume 89.2 fL (80-100); Platelet Count 122 K/uL (130-400); RDW Coefficient of Variation 14.2 % (11.5-14.5); RDW Standard Deviation 46.5 fL (36.4-46.3); Red Blood Count 4.53 M/uL (4.7-6.1); White Blood Count 6.97 K/uL (4.8-10.8)
[2021-01-21 02:56] LABS: ALC (manual) 2.27 K/uL (1.2-3.4); ANC (manual) 4.03 K/uL (1.4-6.5); Basophils # (manual) 0.06 K/uL (0-0.2); Basophils % (manual) 0.9 %; Eosinophils # (manual) 0.06 K/uL (0-0.5); Eosinophils % (manual) 0.9 %; Giant Platelets 1+; Large Granular Lymph # (manua 1.47 K/uL; Large Granular Lymph % (manual) 21.1 %; Lymphocytes # (manual) 0.79 K/uL (1.2-3.4); Lymphocytes % (manual) 11.4 %; Monocytes # (manual) 0.55 K/uL (0.11-0.59); Monocytes % (manual) 7.9 %; Neutrophils # (manual) 4.03 K/uL (1.4-6.5); Neutrophils % (manual) 57.8 %
[2021-01-21 03:07] LABS: Appearance Urine Clear (Clear); Bacteria Urine Automated Negative (Negative); Bilirubin Urine Negative (Negative); Blood Urine Trace (Negative); Color Urine Yellow; Epithelial Cell Urine Auto 0-5 /lpf (0-5); Glucose Urine UA Negative (Negative); Ketones Urine Negative (Negative); Leukocyte Esterase Urine Negative (Negative); Nitrite Urine Negative (Negative); Protein Urine Negative (Negative); Specific Gravity Urine 1.015 (1.000-1.030); Urobilinogen Urine Negative (Negative); WBC Urine Automated 0 /hpf (0-5)
[2021-01-21 03:49] LABS: Influenza A virus by PCR Negative (Neg); Influenza B virus by PCR Negative (Neg); RSV by PCR Negative (Neg); SARS CoV2 RNA(COVID-19) InHosp NEGATIVE (Negative)
--- NOTE | 2021-01-21 04:02 | History & Physical Report ---
Date of Service January 21, 2021 Assessment & Plan (1) Closed left hip fracture: Closed left hip fracture- Geriatric hip fracture protocol order set NPO Acetaminophen 650 mg p.o. every 6 hours as needed mild pain or fever Oxycodone 5 mg p.o. every 6 hours as needed moderate pain Oxycodone 10 mg p.o. every 6 hours as needed severe pain Dilaudid 0.25 mg IV every 3 hours as needed moderate pain Dilaudid 0.5 mg IV every 3 hours as needed severe pain Zofran 4 mg IV every 6 hours as needed Famotidine 20 mg IV every 12 hours Consult orthopedic surgery Dr. Harry Barbour Present on Admission?: Yes (2) Chronic kidney disease: Acute kidney injury on CKD- Creatinine 1.69 upon admission, with baseline 1.4 LR at 80 mils per hour and repeat laboratories in a.m. Present on Admission?: Yes (3) Depression: Continue bupropion Present on Admission?: Yes (4) Poorly-controlled hypertension: Patient is relatively bradycardic, will hold metoprolol. Continue hydralazine 50 mg p.o. 3 times daily, losartan 50 mg p.o. every afternoon. Hydralazine 10 mg IV every 4 hours as needed systolic blood pressure greater than 160 Present on Admission?: Yes (5) Hypothyroid: Continue levothyroxine 50 mcg daily Present on Admission?: Yes (6) Parkinson disease: Continue carbidopa levodopa Present on Admission?: Yes History of Present Illness Chief Complaint: The patient reports that he was getting up to walk to the bathroom, and did so without his walker, and fell with direct impact on his left hip, and sustained immediate pain. Primary Care Provider: Tho Dickerson The patient is a 75-year-old male with a past medical history including lumbar spinal stenosis, hypertension, history of brain surgery, Parkinson's disease, CKD stage III, myofascial pain, cervicalgia, depression, hypertensive urgency, BPH, vitamin D deficiency, hypothyroidism, bilateral sacroiliitis, and Waldenstrom macroglobulinemia. Patient had a mechanical fall as noted above, and x-ray in the emergency department revealed a left hip fracture. The patient reports he has been seen by orthopedic surgery Dr. Harry Lind in the past. Allergies Allergy/AdvReac Type Severity Reaction Status Date / Time levofloxacin Allergy Severe Kidney Verified 01/20/21 10:30 injury, ankle swelling lisinopril Allergy Severe Dyspnea Verified 01/20/21 10:30 fentanyl Allergy Intermediate Rash Verified 01/20/21 10:30 olmesartan Allergy Intermediate Rash Verified 01/20/21 10:30 tramadol Allergy Intermediate Rash Verified 01/20/21 10:30 oxycodone Allergy Mild Itching Verified 01/20/21 10:30 pramipexole AdvReac Mild GI symptoms Verified 01/20/21 10:30 topiramate AdvReac Mild GI symptoms Verified 01/20/21 10:30 Home Medications Medication Instructions Recorded Confirmed Type cholecalciferol (vitamin D3) 125 5,000 units PO QAM 11/04/18 01/21/21 History mcg (5,000 unit) tablet tamsulosin 0.4 mg capsule 0.4 mg PO HS 11/04/18 01/21/21 History coenzyme Q10 [CoQ-10] 400 mg PO QAM 11/11/18 01/21/21 History levothyroxine 150 mcg capsule 150 mcg PO QAM 06/28/19 01/21/21 History Imbruvica 280 mg PO QAM 09/28/19 01/21/21 History metoprolol tartrate 50 mg tablet 50 mg PO DIRECTED 04/08/20 01/21/21 History hydralazine 50 mg tablet 50 mg PO TID #270 tab 05/24/20 01/21/21 Rx acyclovir 200 mg PO BID 12/05/20 01/21/21 History carbidopa-levodopa 1 tab PO QID 12/05/20 01/21/21 History losartan 50 mg PO PM 12/05/20 01/21/21 History bupropion HCl 150 mg PO BID 01/21/21 01/21/21 History Past Med/Surg History Medical History (Updated 01/21/21 @ 05:43 by Hilario Palomo MD) Anemia no known hx of blood transfusion Aneurysm Dilated aortic root 4cm (per 12/02/19 cardiology note) Aortic stenosis "Moderate" Chronic back pain Chronic kidney disease, stage 3 baseline creatinine 1.6-1.8 per chart review, follows Dr. Parks Depression Hypertension Hypothyroid Osteoarthritis Parkinsons disease Follows with neurology (Dr. Hernandez) Poorly-controlled hypertension Presence of neurostimulator GPI deep brain stimulator for tremor, implanted 06/2020 (left chest), [employer], will bring remote AM DOS Spinal stenosis of lumbar region Waldenstrom macroglobulinemia diagnosed 2004- on Imbruvica Surgical History H/O hemorrhoidectomy H/O left knee surgery x3 (ACL, meniscus repairs) H/O thumb surgery right thumb History of colonoscopy Hx of brain surgery Deep brain stimulator 06/2020 [place] [place] Family History Mother Family history of diabetes mellitus Father Family history of diabetes mellitus Unknown Liver cancer Other No family history of adverse response to anesthesia Social History Smoking Status: Never smoker Second Hand Exposure: Yes (mother smoked); Hx Alcohol Use: Yes Alcohol type: beer and wine Hx Substance Use: No Preferred Language: Jamaican Communication Ability: Effective Visual Impairment: Limited Hearing Ability: Normal 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 Beliefs That Will Affect Care: None marital status: Current Living Situation: Spouse Current Living Situation Comment: house current occupational status: retired Other Information That Helps Us Care for You: No Feels Safe at Home: Yes Safety Concerns: Feels Safe At This Time Assistive Devices: Walker Review of Systems Review of Systems: The patient denies chest pain, palpitations, shortness of breath, dyspnea on exertion, cough, lower extremity swelling, sore throat, fevers, chills, sweats, weight change, fatigue, nausea, vomiting, diarrhea , constipation, abdominal pain, pelvic pain, blood in urine or stool, dysuria, urinary frequency or urgency, lightheadedness, dizziness, headache, memory loss, loss of consciousness, rash, abnormal bruising or bleeding, focal or generalized weakness, numbness or tingling in arms, generalized arthralgias or myalgias, back or neck pain, or night sweats. He does have a baseline tremor upper extremities, classical parkinsonism, which is unchanged The review of systems is otherwise negative other than for that already noted ab ove, and at least 10 systems have been reviewed. Physical Exam Physical Exam: The patient is awake, alert and oriented 3, and atraumatic, lying in bed and in no acute distress. HEENT--PERRL, EOMI, mucous membranes and oropharynx normal. Neck--supple. No JVD. No bruits. Thyroid normal, trachea midline, no adenopathy. Heart--normal S1 and S2. No murmurs, rubs or gallops. Lungs--clear bilaterally, no respiratory distress, no accessory muscle use. Abdomen--normal bowel sounds and soft. Nontender. Nondistended. Extremities--no cyanosis or clubbing. No edema. Dermatologic--normal skin turgor, normal color, no abnormal lymph nodes, no rash. Neurologic--cranial nerves II through XII grossly intact. Rheumatologic--limited exam due to left hip pain Psychiatric--normal affect. Results & Data Results & Data ([facility]) Vital Signs (Past 12 Hours) Vital Signs Temp Pulse Resp BP Pulse Ox 01/21/21 03:00 60 20 195/109 H 91 01/21/21 02:30 60 20 191/105 H 92 01/21/21 02:00 59 L 22 197/109 H 93 01/21/21 01:50 62 22 200/117 H 93 01/21/21 01:20 98.1 F 60 20 228/115 H 95 Laboratory Results Laboratory Results WBC 6.97 K/uL (4.8-10.8) 01/21/21 01:25 RBC 4.53 M/uL (4.7-6.1) L 01/21/21 01:25 Hgb 13.1 g/dL (14.0-18.0) L 01/21/21 01:25 Hct 40.4 % (42-52) L 01/21/21 01:25 MCV 89.2 fL (80-100) 01/21/21 01:25 MCH 28.9 pg (25-34) 01/21/21 01:25 MCHC 32.4 g/dL (32-36) 01/21/21 01:25 RDW Std Deviation 46.5 fL (36.4-46.3) H 01/21/21 01:25 RDW Coeff of Silvia 14.2 % (11.5-14.5) 01/21/21 01:25 Plt Count 122 K/uL (130-400) L 01/21/21 01:25 MPV 12.0 fL (7.4-10.4) H 01/21/21 01:25 Neutrophils % (Manual) 57.8 % 01/21/21 01:25 Lymphocytes % (Manual) 11.4 % 01/21/21 01:25 Monocytes % (Manual) 7.9 % 01/21/21 01:25 Eosinophils % (Manual) 0.9 % 01/21/21 01:25 Basophils % (Manual) 0.9 % 01/21/21 01:25 Neutrophils # (Manual) 4.03 K/uL (1.4-6.5) 01/21/21 01:25 Total Absolute Neuts 4.03 K/uL (1.4-6.5) 01/21/21 01:25 Lymphocytes # (Manual) 0.79 K/uL (1.2-3.4) L 01/21/21 01:25 Total Abs Lymphocytes 2.27 K/uL (1.2-3.4) 01/21/21 01:25 Monocytes # (Manual) 0.55 K/uL (0.11-0.59) 01/21/21 01:25 Eosinophils # (Manual) 0.06 K/uL (0-0.5) 01/21/21 01:25 Basophils # (Manual) 0.06 K/uL (0-0.2) 01/21/21 01:25 Large Granular Lymphs 21.1 % 01/21/21 01:25 # Lrg Granular Lymphs 1.47 K/uL 01/21/21 01:25 Giant Platelets 1+ 01/21/21 01:25 PT 9.8 Seconds (9.0-12.0) 01/21/21 01:25 INR 1.0 (0.9-1.1) 01/21/21 01:25 APTT 23.3 Seconds (21.0-31.0) 01/21/21 01:25 PTT Ratio 0.9 01/21/21 01:25 Sodium 142 mmol/L (136-145) 01/21/21 01:25 Potassium 3.9 mmol/L (3.5-5.1) 01/21/21 01:25 Chloride 109 mmol/L (98-107) H 01/21/21 01:25 Carbon Dioxide 27 mmol/L (21-32) 01/21/21 01:25 Anion Gap 6.0 (3-11) 01/21/21 01:25 BUN 36 mg/dl (7-18) H 01/21/21 01:25 Creatinine 1.69 mg/dl (0.6-1.4) H 01/21/21 01:25 Est Cr Clr Drug Dosing 34.8 ml/min 01/21/21 01:25 Est GFR ( Amer) 44.7 01/21/21 01:25 Est GFR (Non-Af Amer) 38.6 01/21/21 01:25 BUN/Creatinine Ratio 21.1 (10-20) H 01/21/21 01:25 Glucose 108 mg/dl (70-99) H 01/21/21 01:25 Calcium 8.8 mg/dl (8.5-10.1) 01/21/21 01:25 Total Bilirubin 0.4 mg/dl (0.2-1) 01/21/21 01:25 AST 14 U/L (15-37) L 01/21/21 01:25 ALT 6 U/L (12-78) L 01/21/21 01:25 Alkaline Phosphatase 75 U/L (45-117) 01/21/21 01:25 Total Protein 6.5 gm/dl (6.4-8.2) 01/21/21 01:25 Albumin 3.6 gm/dl (3.4-5.0) 01/21/21 01:25 Globulin 2.9 gm/dl (2.5-4.0) 01/21/21 01:25 Albumin/Globulin Ratio 1.2 (0.9-2) 01/21/21 01:25 Urine Color Yellow 01/21/21 01:41 Urine Appearance Clear (Clear) 01/21/21 01:41 Urine pH 7.0 (4.5-7.5) 01/21/21 01:41 Ur Specific [place] 1.015 (1.000-1.030) 01/21/21 01:41 Urine Protein Negative (Negative) 01/21/21 01:41 Urine Glucose (UA) Negative (Negative) 01/21/21 01:41 Urine Ketones Negative (Negative) 01/21/21 01:41 Urine Blood Trace (Negative) H 01/21/21 01:41 Urine Nitrite Negative (Negative) 01/21/21 01:41 Urine Bilirubin Negative (Negative) 01/21/21 01:41 Urine Urobilinogen Negative (Negative) 01/21/21 01:41 Ur Leukocyte Esterase Negative (Negative) 01/21/21 01:41 Urine WBC (Auto) 0 /hpf (0-5) 01/21/21 01:41 Urine RBC (Auto) 10-30 /hpf (0-4) H 01/21/21 01:41 U Hyaline Cast (Auto) 1-5 /lpf (0-5) 01/21/21 01:41 U Epithel Cells (Auto) 0-5 /lpf (0-5) 01/21/21 01:41 Urine Bacteria (Auto) Negative (Negative) 01/21/21 01:41 COVID-19 Eval Order [facility]FluRsv at [facility] 01/21/21 02:54 SARS-CoV-2 (PCR) NEGATIVE (Negative) 01/21/21 02:54 Influenza Type A (PCR) Negative (Neg) 01/21/21 02:54 Influenza Type B (PCR) Negative (Neg) 01/21/21 02:54 RSV (RT-PCR) Negative (Neg) 01/21/21 02:54 Blood Type A Positive 01/21/21 01:33 Antibody Screen NEGATIVE 01/21/21 01:33 Code Status & VTE Plan Code Status Full code VTE Prophylaxis Plan VTE Prophylaxis will be ordered: Yes PG Care Time/CCT Total # of Minutes Spent Total Time Spent with Patient: Total time spent is greater than 50% in coordination of care (as documented) at patient's floor/unit and/or counseling patient: Coding Level of Care Code 70207 Initial Inpt Care Lvl 3 Diagnoses Closed left hip fracture S72.002A Chronic kidney disease N18.9 Chronic kidney disease stage: unspecified stage Depression F32.9 Poorly-controlled hypertension I10 Hypothyroid E03.9 Hypothyroidism type: unspecified Parkinson disease G20 (1) Chronic kidney disease Chronic kidney disease stage: unspecified stage Qualified Code(s): N18.9 - Chronic kidney disease, unspecified (2) Hypothyroid Hypothyroidism type: unspecified Qualified Code(s): E03.9 - Hypothyroidism, unspecified
[2021-01-21] MEDS ORDERED: hydrALAZINE HCL 20 MG/ML VIAL IV PRN (04:17)
[2021-01-21] MEDS ORDERED: MAGNESIUM HYDROXIDE SUSP 30 ML UDC PO PRN (05:04)
[2021-01-21] MEDS ORDERED: NALOXONE HCL 0.4 MG/1 ML VIAL/CARP IV PRN ×2 (05:04→17:15)
[2021-01-21] MEDS ORDERED: bisacodyL 10 MG SUPP PR PRN (05:04)
[2021-01-21] MEDS: LACTATED RINGER'S 1,000 ML IV SCH ×2 (05:42→22:30)
[2021-01-21] MEDS: HYDROmorphone INJ 0.5 MG/0.5 ML SYR IV PRN ×2 (05:44→12:29)
[2021-01-21] MEDS: LEVOTHYROXINE SODIUM 150 MCG TABLET PO SCH ×2 (06:25→10:00)
--- NOTE | 2021-01-21 06:38 | XRay Report ---
XR hip LT min 2V HISTORY: 75 years-old Male left hip pain acute left hip pain status post fall COMPARISON: None TECHNIQUE: 2 views of the left hip FINDINGS: There is an acute mildly impacted basicervical fracture of the left femur which demonstrates mild imp action and dorsal displacement of 9 mm. Mild to moderate left hip osteoarthritis. No avascular necros is. No dislocation. IMPRESSION: Acute mildly impacted and displaced basicervical fracture of the left femur ACT 112: Negative or not required by law. The above report was generated using voice recognition software. It may contain grammatical, syntax o r spelling errors. Electronically signed by: Jeffry Boss M.D. 01/21/2021 6:37 AM
[2021-01-21] MEDS ORDERED: IMBRUVICA~ORDER AWAITING ACTION SCH (08:00)
--- NOTE | 2021-01-21 08:11 | XRay Report ---
XR chest 1V portable HISTORY: 75 years-old Male pre-op acute chest trauma status post fall. Acute fracture of the left hi p COMPARISON: Chest radiograph 12/10/2020 TECHNIQUE: Portable AP view the chest FINDINGS: Cardiac silhouette is enlarged. Battery pack of the left chest with leads projecting superiorly along the left neck. No pneumothorax, pleural effusion, airspace consolidation or overt pulmonary edema. B ones appear grossly intact. IMPRESSION: No acute process. ACT 112: Negative or not required by law. The above report was generated using voice recognition software. It may contain grammatical, syntax o r spelling errors. Electronically signed by: Jeffry Boss M.D. 01/21/2021 8:10 AM
[2021-01-21] MEDS ORDERED: NON-FORMULARY MEDICATION (Coenzyme Q10 [Coq-10] 100 mg Capsule) PO SCH (09:00)
--- NOTE | 2021-01-21 09:08 | Orthopedic Consultation ---
Date of Service January 21, 2021 Assessment & Plan (1) Closed fracture of left hip: He is npo. We will plan on taking him to the operating room today for long trochanteric nailing of the left femur. Procedure was explained including risk, benefits, and alternatives to surgery. He does want to proceed with surgery for fixation of this fracture. History of Present Illness Reason for Consultation: .left hip fracture Requesting Physician: . Attending Physician: DO Martha RomanSrikanth is a 75 year old male that suffered a fall last night around midnight landing onto his left side. He was unable to get up and was brought by EMS to [facility]. Xrays of the hip show a basicervical hip fracture. He denies any other orthopedic complaints at this time. He was recently seen by Dr. Lind regarding his left knee about 2 weeks ago. No hip pain prior to the fall. Allergies Allergy/AdvReac Type Severity Reaction Status Date / Time levofloxacin Allergy Severe Kidney Verified 01/20/21 10:30 injury, ankle swelling lisinopril Allergy Severe Dyspnea Verified 01/20/21 10:30 fentanyl Allergy Intermediate Rash Verified 01/20/21 10:30 olmesartan Allergy Intermediate Rash Verified 01/20/21 10:30 tramadol Allergy Intermediate Rash Verified 01/20/21 10:30 oxycodone Allergy Mild Itching Verified 01/20/21 10:30 pramipexole AdvReac Mild GI symptoms Verified 01/20/21 10:30 topiramate AdvReac Mild GI symptoms Verified 01/20/21 10:30 Home Medications Medication Instructions Recorded Confirmed Type cholecalciferol (vitamin D3) 125 5,000 units PO QAM 11/04/18 01/21/21 History mcg (5,000 unit) tablet tamsulosin 0.4 mg capsule 0.4 mg PO HS 11/04/18 01/21/21 History coenzyme Q10 [CoQ-10] 400 mg PO QAM 11/11/18 01/21/21 History levothyroxine 150 mcg capsule 150 mcg PO QAM 06/28/19 01/21/21 History Imbruvica 280 mg PO QAM 09/28/19 01/21/21 History metoprolol tartrate 50 mg tablet 50 mg PO DIRECTED 04/08/20 01/21/21 History hydralazine 50 mg tablet 50 mg PO TID #270 tab 05/24/20 01/21/21 Rx acyclovir 200 mg PO BID 12/05/20 01/21/21 History carbidopa-levodopa 1 tab PO QID 12/05/20 01/21/21 History losartan 50 mg PO PM 12/05/20 01/21/21 History bupropion HCl 150 mg PO BID 01/21/21 01/21/21 History Past Med/Surg History Medical History Anemia no known hx of blood transfusion Aneurysm Dilated aortic root 4cm (per 12/02/19 cardiology note) Aortic stenosis "Moderate" Chronic back pain Chronic kidney disease, stage 3 baseline creatinine 1.6-1.8 per chart review, follows Dr. Parks Depression Hypertension Hypothyroid Osteoarthritis Parkinsons disease Follows with neurology (Dr. Hernandez) Poorly-controlled hypertension Presence of neurostimulator GPI deep brain stimulator for tremor, implanted 06/2020 (left chest), [employer], will bring remote AM DOS Spinal stenosis of lumbar region Waldenstrom macroglobulinemia diagnosed 2004- on Imbruvica Surgical History H/O hemorrhoidectomy H/O left knee surgery x3 (ACL, meniscus repairs) H/O thumb surgery right thumb History of colonoscopy Hx of brain surgery Deep brain stimulator 06/2020 ([facility] [place]) Family History Mother Family history of diabetes mellitus Father Family history of diabetes mellitus Unknown Liver cancer Other No family history of adverse response to anesthesia Social History Smoking Status: Never smoker Second Hand Exposure: Yes (mother smoked); Hx Alcohol Use: Yes Alcohol type: beer and wine Hx Substance Use: No Preferred Language: Chinese Communication Ability: Effective Visual Impairment: Limited Hearing Ability: Normal 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 Physical Exam . Constitutional well developed and well nourished; no acute distress Respiratory normal respiratory effort Cardiovascular Extremities: no calf tenderness and no edema Musculoskeletal left leg: shortened and externally rotated. He can dorsiflex and plantar flex Skin intact around the left hip area Neurologic sensation intact to touch in left leg Psychiatric Orientation: alert and oriented x 3 Results & Data Results & Data Laboratory Results . Diagnostic Findings . xrays show a displaced fracture through the base of the femoral neck/intertroch region. PG Care Time/CCT Total # of Minutes Spent Total Time Spent with Patient: Total time spent is greater than 50% in coordinat ion of care (as documented) at patient's floor/unit and/or counseling patient: Coding Level of Care Code 04211 Inpt Consult Level 4 Diagnoses Closed fracture of left hip S72.002A Encounter type: initial encounter (1) Closed fracture of left hip Encounter type: initial encounter Qualified Code(s): S72.002A - Fracture of unspecified part of neck of left femur, initial encounter for closed fracture
[2021-01-21] MEDS: buPROPion SR 150 MG TABCR PO SCH ×2 (10:00→21:04)
[2021-01-21] MEDS: CARBIDOPA/LEVODOPA 25-250 1 EA TAB PO SCH ×4 (10:00→21:03)
[2021-01-21] MEDS: hydrALAZINE TAB 50 MG TAB PO SCH ×3 (10:00→21:04)
[2021-01-21] MEDS: CHOLECALCIFEROL 1,000 UNITS 25 MCG TAB PO SCH (10:00)
--- NOTE | 2021-01-21 10:00 | Hospitalist Progress Note ---
Date of Service January 21, 2021 Assessment & Plan (1) Closed fracture of left hip: Closed L Hip Fx - surgery with ortho today - pain control with dilaudid 0.25 and 0.5 mg IV PRN Q3 with PT, oxycodone 5 mg Q4, oxycodone 10 mg Q4, - defer dvt ppx to ortho - scds, PT, HTN - cont hydralazine 50 mg TID, losartan 50 mg, metoprolol tartrate 50 mg Parkinsons - cont levadopa Depression/Anxiety - cont buproprion hx waldenstrom's macroglobulinemia - cont imbruvica hypothyroidism - cont levothyroxin BPH - cont tamsulosin dvt ppx: scd fen/gi: regular Code status: full code dispo: PT/OT evals pending (2) Poorly-controlled hypertension: (3) Chronic kidney disease: (4) Parkinson disease: Admission and Anticipated Discharge Date Admission Date: January 21, 2021 Supervising Physician Co-Signing Physician Notes I personally examined the patient and verified all arizmendi points of history and exam, discussed case, and agree with decision making with Dr Soto pain reasonably controlled preop. no other new complaints. discussed plans and anticipated course of therapy. answered all questions to the best of my ability. wanted update - due to clinical services elsewhere i was unable to call until tonight. 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 act as a go-between between the patient and the surgeon" then after treating me somewhat hostily did note that dr ley had called her as well. updated, discussed anticipated plan with her as well. at the end of the call she sounded more pleasant and thanked me. Vitals noted, in general he is awake and alert pleasant generally in no distress, whenever he moves it does appear that it hurts a little bit. HEENT normocephalic atraumatic mucous membranes moist. Breathing unlabored no accessory muscle use good effort. Skin shows no rashes no pallor or icterus. Mental status shows good recent and remote recall normal mood and affect. Hip fracturepossible osteoporoticOR today, PT/OT, possible need for rehab. Otherwise as above. Subjective 75 yo M admitted for hip fx. pain mostly controlled when laying still. no complaints. Review of Systems Constitutional: no fever, no chills, no body aches and no fatigue Respiratory: no cough and no dyspnea Cardiovascular: no chest pain, no dyspnea and no edema Gastrointestinal: no abdominal pain, no nausea, no vomiting, no constipation and no diarrhea/loose stools Musculoskeletal: + joint pain Physical Exam Physical Exam: Constitutional: in no apparent distress, laying somewhat comfortably in bed. Eyes: EOMI, pupils equal and reactive bilaterally, no scleral icterus Cardiac: RRR, no murmurs, gallops or rubs. Normal S1, S2 Pulm: CTA BL, no wheezes, rhonchi, crackles or rubs, moving air well throughout both lungs Abd: soft, nontender, nondistended, normal bowel sounds, no rebound or guarding Extremities: 2+ peripheral pulses, no edema Results & Data Results & Data ([facility]) Vital Signs (Past 12 Hours) Vital Signs Temp Pulse Pulse Resp BP BP BP 01/21/21 08:01 37.0 C 60 18 182/94 H 01/21/21 05:09 36.7 C 61 20 193/103 H 01/21/21 05:04 36.7 C 61 20 230/109 H 233/112 H 01/21/21 04:05 60 20 194/104 H 01/21/21 04:00 61 18 199/106 H 01/21/21 03:30 58 L 18 185/106 H 01/21/21 03:00 60 20 195/109 H 01/21/21 02:30 60 20 191/105 H 01/21/21 02:00 59 L 22 197/109 H 01/21/21 01:50 62 22 200/117 H 01/21/21 01:20 36.7 C 60 20 228/115 H Pulse Ox 01/21/21 08:01 94 01/21/21 05:09 94 01/21/21 05:04 94 01/21/21 04:05 93 01/21/21 04:00 93 01/21/21 03:30 92 01/21/21 03:00 91 01/21/21 02:30 92 01/21/21 02:00 93 01/21/21 01:50 93 01/21/21 01:20 95 Resident Activity Tracking Resident Involvement: Resident Care Provided Care Provided: Adult Hospital Medicine (1) Chronic kidney disease Chronic kidney disease stage: unspecified stage Qualified Code(s): N18.9 - Chronic kidney disease, unspecified (2) Closed fracture of left hip Encounter type: initial encounter Qualified Code(s): S72.002A - Fracture of unspecified part of neck of left femur, initial encounter for closed fracture
[2021-01-21] MEDS: ACYCLOVIR 200 MG CAP PO SCH ×2 (10:01→21:04)
[2021-01-21] MEDS: IBRUTINIB 140 MG PO SCH (10:05)
[2021-01-21] MEDS ORDERED: fentaNYL citrate 100 MCG/2 ML VIAL ONE (13:11)
--- NOTE | 2021-01-21 13:16 | Anesthesiology Consultation ---
Date of Service January 21, 2021 Assessment & Plan Chart Review Chart Review: Acceptable Risk for Surgery and Patient NOT seen in Pre Admission Testing Consults Requested none ASA ASA4 Proposed Anesthesia Anesthesia Type: General Risk / Benefits Reviewed With: PT / POA / Parent / Guardian, Accepts Plan and Informed Consent Obtained Additional Comments: covid test negative History Surgery Operation Date: 01/21/21 12:30 Proposed Procedures p Left Femur Long Troch Nail - Harry Lind MD Height/Weight Height: 5 ft 9 in Weight: 67.4 kg Allergies Allergy/AdvReac Type Severity Reaction Status Date / Time levofloxacin Allergy Severe Kidney Verified 01/20/21 10:30 injury, ankle swelling lisinopril Allergy Severe Dyspnea Verified 01/20/21 10:30 fentanyl Allergy Intermediate Rash Verified 01/20/21 10:30 olmesartan Allergy Intermediate Rash Verified 01/20/21 10:30 tramadol Allergy Intermediate Rash Verified 01/20/21 10:30 oxycodone Allergy Mild Itching Verified 01/20/21 10:30 pramipexole AdvReac Mild GI symptoms Verified 01/20/21 10:30 topiramate AdvReac Mild GI symptoms Verified 01/20/21 10:30 Medications Home Medications Medication Instructions Recorded Confirmed Last Taken cholecalciferol (vitamin D3) 125 5,000 units PO QAM 11/04/18 01/21/21 01/20/21 mcg (5,000 unit) tablet tamsulosin 0.4 mg capsule 0.4 mg PO HS 11/04/18 01/21/21 01/20/21 coenzyme Q10 [CoQ-10] 400 mg PO QAM 11/11/18 01/21/21 01/20/21 levothyroxine 150 mcg capsule 150 mcg PO QAM 06/28/19 01/21/21 01/20/21 Imbruvica 280 mg PO QAM 09/28/19 01/21/21 01/20/21 metoprolol tartrate 50 mg tablet 50 mg PO DIRECTED 04/08/20 01/21/21 01/20/21 hydralazine 50 mg tablet 50 mg PO TID #270 tab 05/24/20 01/21/21 01/20/21 acyclovir 200 mg PO BID 12/05/20 01/21/21 01/20/21 carbidopa-levodopa 1 tab PO QID 12/05/20 01/21/21 01/20/21 losartan 50 mg PO PM 12/05/20 01/21/21 01/20/21 bupropion HCl 150 mg PO BID 01/21/21 01/21/21 01/20/21 Active Medications Generic Name Dose Route Start Last Admin Trade Name Freq PRN Reason Stop Dose Admin Acyclovir 200 mg 01/21/21 09:00 01/21/21 10:01 Acyclovir 200 Mg Cap PO 02/20/21 08:59 200 mg BID GREG Administration Bupropion HCl 150 mg 01/21/21 09:00 01/21/21 10:00 Bupropion Sr 150 Mg Tabcr PO 02/20/21 08:59 150 mg BID GREG Administration Carbidopa/Levodopa 1 tab 01/21/21 09:00 01/21/21 10:00 Carbidopa/Levodopa 25-250 1 Ea Tab PO 02/20/21 08:59 1 tab QID GREG Administration Hydralazine HCl 10 mg 01/21/21 04:17 01/21/21 05:43 Hydralazine Hcl 20 Mg/Ml Vial IV 02/20/21 04:16 10 mg Q4H PRN Administration Blood Pressure - High Hydralazine HCl 50 mg 01/21/21 09:00 01/21/21 10:00 Hydralazine Tab 50 Mg Tab PO 02/20/21 08:59 50 mg TID GREG Administration Hydromorphone HCl 0.5 mg 01/21/21 05:04 01/21/21 12:29 Hydromorphone Inj 0.5 Mg/0.5 Ml Syr IV 02/04/21 05:03 0.5 mg Q3H PRN Administration Pain (6,7,8,9,10) Lactated Ringer's 1,000 mls @ 80 mls/hr 01/21/21 05:04 01/21/21 05:42 Lr IV 02/20/21 05:03 80 mls/hr .[id number] GREG Administration Ibrutinib 2 ea 01/21/21 10:00 01/21/21 10:05 Pt's Own Med: Ibrutinib 140mg PO 02/20/21 09:59 2 ea DAILY GREG Administration Protocol Levothyroxine Sodium 150 mcg 01/21/21 06:30 01/21/21 10:00 Levothyroxine Sodium 150 Mcg Tablet PO 02/20/21 06:29 150 mcg DAILYBB GREG Administration Vitamin D 5,000 units 01/21/21 09:00 01/21/21 10:00 Cholecalciferol 1,000 Units 25 Mcg Tab PO 02/20/21 08:59 5,000 units QAM GREG Administration NPO Date Last Intake of Fluids: 01/20/21 Time Last Intake of Fluids: 17:00 Date Last Intake of Solids: 01/20/21 Time Last Intake of Solids: 17:00 Past Medical History Medical History Anemia no known hx of blood transfusion Aneurysm Dilated aortic root 4cm (per 12/02/19 cardiology note) Aortic stenosis "Moderate" Chronic back pain Chronic kidney disease, stage 3 baseline creatinine 1.6-1.8 per chart review, follows Dr. Parks Depression Hypertension Hypothyroid Osteoarthritis Parkinsons disease Follows with neurology (Dr. Hernandez) Poorly-controlled hypertension Presence of neurostimulator GPI deep brain stimulator for tremor, implanted 06/2020 (left chest), [employer], will bring remote AM DOS Spinal stenosis of lumbar region Waldenstrom macroglobulinemia diagnosed 2004- on Imbruvica Exercise / Class Metabolic Activity III < 4 Walking/Shop/Light housework Past Family History Family History Mother Family history of diabetes mellitus Father Family history of diabetes mellitus Unknown Liver cancer Other No family history of adverse response to anesthesia Past Surgical History Surgical History H/O hemorrhoidectomy H/O left knee surgery x3 (ACL, meniscus repairs) H/O thumb surgery right thumb History of colonoscopy Hx of [place] [place] Past Anesthesia History No Hx of Anesthesia Complications and No Family Hx of Anesthesia Complications History of PONV No Hx of PONV and No Hx of Motion Sickness Social History Smoking Status: Never smoker Hx Alcohol Use: Yes Alcohol type: beer and wine alcohol intake frequency: holidays/special occasions only Hx Substance Use: No substance use type: does not use Physical Exam Vital Signs Last Vital Signs Temp 36.6 C 01/21/21 12:45 Pulse 70 01/21/21 12:45 Resp 16 01/21/21 12:45 BP 181/99 H 01/21/21 12:45 Pulse Ox 92 01/21/21 12:45 Constitutional + obese ENMT Mouth: no dentition abnormality Thyromental Distance: > or= 3.5 Finger Breadths Mallampati Class: II Neck normal visual inspection and trachea midline; neck extension not limited Respiratory normal respiratory effort Auscultation: lungs clear to auscultation bilaterally Cardiovascular Rate/Rhythm: regular rate and regular rhythm Heart Sounds: + murmur ( 3-4/6 at RUSB) Vessels: no carotid bruit Musculoskeletal Spine: normal cervical ROM Extremities: extremities normal to inspection Neurologic moves all extremities Motor/Sensory: + tremor; no sensory deficit Psychiatric Orientation: alert and oriented x 3 Testing Laboratory Results 01/21/21 01:25 01/21/21 01:25 PT 9.8 Seconds (9.0-12.0) 01/21/21 01:25 INR 1.0 (0.9-1.1) 01/21/21 01:25 APTT 23.3 Seconds (21.0-31.0) 01/21/21 01:25 Urine Color Yellow 01/21/21 01:41 Urine Appearance Clear (Clear) 01/21/21 01:41 Urine pH 7.0 (4.5-7.5) 01/21/21 01:41 Ur Specific [place] 1.015 (1.000-1.030) 01/21/21 01:41 Urine Protein Negative (Negative) 01/21/21 01:41 Urine Glucose (UA) Negative (Negative) 01/21/21 01:41 Urine Ketones Negative (Negative) 01/21/21 01:41 Urine Nitrite Negative (Negative) 01/21/21 01:41 Ur Leukocyte Esterase Negative (Negative) 01/21/21 01:41 Urine WBC (Auto) 0 /hpf (0-5) 01/21/21 01:41 Urine RBC (Auto) 10-30 /hpf (0-4) H 01/21/21 01:41 U Hyaline Cast (Auto) 1-5 /lpf (0-5) 01/21/21 01:41 U Epithel Cells (Auto) 0-5 /lpf (0-5) 01/21/21 01:41 Urine Bacteria (Auto) Negative (Negative) 01/21/21 01:41 Blood Type A Positive 01/21/21 01:33 Antibody Screen NEGATIVE 01/21/21 01:33 Electrocardiogram Date: 01/21/21 Findings: + NSR @ (at 64) and + NSST changes Chest X-Ray Date: 01/21/21 Findings: + NAD Echocardiogram LV Function: normal RWMA: + none Other Findings: + LVH (mild) and + diastolic dysfunction (Grade 1) Valvular Disease: + (moderate) and + pertinent finding (pulmonary [id number];mild TR)
[2021-01-21] MEDS ORDERED: ONDANSETRON INJ 2 MG/ML 2 ML VIAL ONE (13:32)
[2021-01-21] MEDS ORDERED: NEOSTIGMINE METHYLSULFATE 5 MG/5 ML SYR ONE (13:32)
[2021-01-21] MEDS ORDERED: LIDOCAINE HCL 2% 2 ML VIAL/AMP(20MG/ML) INFIL ONE (13:32)
[2021-01-21] MEDS ORDERED: PROPOFOL IV EMULSION 10 MG/ML 20 ML VIAL IV ONE (13:32)
[2021-01-21] MEDS ORDERED: DEXAMETHASONE SOD INJ 4 MG/ML VIAL ONE (13:32)
[2021-01-21] MEDS ORDERED: ROCURONIUM BROMIDE 10 MG/ML 5 ML VIAL IV ONE (13:32)
[2021-01-21] MEDS ORDERED: GLYCOPYRROLATE 0.2 MG/ML VIAL ONE (13:32)
[2021-01-21] MEDS ORDERED: BUPIVACAINE 0.5 % 5 MG/1 ML MPF 30ML VIAL ONE (13:34)
[2021-01-21] MEDS ORDERED: EPINEPHrine INJ 1 MG/ML AMP ONE (13:34)
[2021-01-21] MEDS ORDERED: BUPIVACAINE/EPINEPHRINE 0.5% MPF 1:200,000 30 ML VIAL ONE ×3 (13:35→14:34)
[2021-01-21] MEDS ORDERED: ceFAZolin 2,000 MG/15 ML IV PUSH IV ONE (13:48)
[2021-01-21] MEDS ORDERED: ceFAZolin 2000MG 2,000 MG/15 ML SYR IV ONE (13:53)
[2021-01-21] MEDS ORDERED: BACITRACIN INJ 50,000 UNIT VIAL ONE (14:25)
[2021-01-21] MEDS ORDERED: ePHEDrine sulfate 50 MG/ML AMP ONE (14:53)
[2021-01-21] MEDS ORDERED: PHENYLEPHRINE HCL 10 MG/ML VIAL ONE (14:53)
[2021-01-21] MEDS ORDERED: PHENYLEPHRINE 100MCG/ML 5ML SYR ONE (14:53)
[2021-01-21] MEDS ORDERED: ceFAZolin 1000MG 1,000 MG/7.5 ML SYR IV ONE ×2 (15:45→16:00)
[2021-01-21] MEDS ORDERED: LABETALOL HCL IV 5 MG/ML 20ML IV PRN (15:59)
[2021-01-21] MEDS ORDERED: fentaNYL citrate 100 MCG/2 ML VIAL IV PRN (15:59)
[2021-01-21] MEDS ORDERED: ePHEDrine sulfate 50 MG/ML AMP IV PRN (15:59)
[2021-01-21] MEDS ORDERED: ATROPINE SULFATE 0.1 MG/ML 10ML SYR IV PRN (15:59)
[2021-01-21] MEDS ORDERED: PHENYLEPHRINE 100MCG/ML 5ML SYR IV PRN (15:59)
[2021-01-21] MEDS ORDERED: ONDANSETRON INJ 2 MG/ML 2 ML VIAL IV PRN (15:59)
--- NOTE | 2021-01-21 16:22 | Post Operative Brief Note ---
PG Immediate Post Op with CF Date of Surgery January 21, 2021 Pre & Post Diagnosis Operation Date: 01/21/21 12:30 Pre-Op Diagnosis: Closed fracture of left femoral neck/hip Post-Op Diagnosis: Closed fracture of left femoral neck/hip I identified the patient and participated in the time-out.: Yes Procedure Operation Date: 01/21/21 12:30 Actual Procedures p Left Bipolar Hip - Cemented(Left) - Harry Lind MD Surgeon Harry Lind MD Coding Specialist Home Health Robyn, PAC Estimated Blood Loss 200 Findings Consistent with Post-Op Diagnosis Fluids 1500 cc Specimens Specimen Description: A. Left femoral head Drains Fletcher Catheter (Fletcher intact upon entering operating room) Anesthesia Type General Complications none Disposition Disposition: Recovery Room
--- NOTE | 2021-01-21 17:02 | XRay Report ---
LEFT HIP 2 VIEWS CLINICAL HISTORY: Postoperative examination. FINDINGS: AP and crosstable lateral views of the left hip are compared to study performed earlier the same day 01/21/2021. The skeletal structures are osteopenic. A unipolar left hip arthroplasty is in n ear-anatomic alignment. No acute fracture is identified. The visualized left hemipelvis appears intac t. Skin clips, soft tissue swelling, and subcutaneous gas overlying the left hip are expected postope rative changes. IMPRESSION: Expected postoperative findings status post left hip arthroplasty placement. No acute fra cture is seen. Electronically signed by: Hi Rodney M.D. 01/21/2021 5:00 PM
--- NOTE | 2021-01-21 17:11 | Anesthesiology Progress Note ---
Date of Service January 21, 2021 Anesthesia Post Procedure Vital Signs Vital Signs: Temp Pulse Pulse Pulse Resp BP BP 01/21/21 17:00 36.5 C 76 20 01/21/21 16:50 78 19 01/21/21 16:40 75 17 01/21/21 16:30 73 14 01/21/21 16:22 36.4 C L 73 13 01/21/21 12:45 36.6 C 70 16 181/99 H 01/21/21 08:01 37.0 C 60 18 182/94 H 01/21/21 05:09 36.7 C 61 20 01/21/21 05:04 36.7 C 61 20 230/109 H 01/21/21 04:05 60 20 194/104 H 01/21/21 04:00 61 18 199/106 H 01/21/21 03:30 58 L 18 185/106 H 01/21/21 03:00 60 20 195/109 H 01/21/21 02:30 60 20 191/105 H 01/21/21 02:00 59 L 22 197/109 H 01/21/21 01:50 62 22 200/117 H 01/21/21 01:20 36.7 C 60 20 228/115 H BP Pulse Ox 01/21/21 17:00 141/77 H 92 01/21/21 16:50 151/81 H 92 01/21/21 16:40 138/74 94 01/21/21 16:30 106/59 L 93 01/21/21 16:22 99/54 L 98 01/21/21 12:45 92 01/21/21 08:01 94 01/21/21 05:09 193/103 H 94 01/21/21 05:04 233/112 H 94 01/21/21 04:05 93 01/21/21 04:00 93 01/21/21 03:30 92 01/21/21 03:00 91 01/21/21 02:30 92 01/21/21 02:00 93 01/21/21 01:50 93 01/21/21 01:20 95 Pain Intensity Left Hip: Pain Intensity: 2 Transfer of Care Handoff Completed per policy Notes Mental Status: alert / awake / arousable Patient Amnestic to Procedure: Yes Nausea / Vomiting: adequately controlled Pain: adequately controlled Airway Patency, RR, SpO2: stable & adequate BP & HR: stable & adequate Hydration State: stable & adequate Anesthetic Complications: no major complications apparent and Pt Satisfied with anesthetic care Notes: The patient's deep brain stimulator was turned back on in PACU.
[2021-01-21] MEDS: ONDANSETRON INJ 2 MG/ML 2 ML VIAL IV PRN (17:31)
--- NOTE | 2021-01-21 19:21 | Operative Report ---
Post Operative Report Pre & Post Diagnosis Operation Date: 01/21/21 12:30 Pre-Op Diagnosis: Closed fracture of left hip Post-Op Diagnosis: Left displaced vertical femoral neck fracture. I identified the patient and participated in the time-out.: Yes Procedure Operation Date: 01/21/21 12:30 Actual Procedures p Left cemented bipolar Hip - Cemented(Left) - Harry Lind MD Surgeon Harry Lind MD Collection Manager Robyn, PAC Estimated Blood Loss 200 Findings Consistent with Post-Op Diagnosis Operative findings revealed a displaced femoral neck fracture. The fracture was entirely within the femoral neck with a very vertical fracture line extending from the inferior femoral neck area vertically up to the femoral head. No significant arthritic change. No signs of underlying bone pathology. Fluids 1500 cc Specimens Left femoral head sent for pathology. Drains None. Anesthesia Type General Complications none Disposition Accompanied Patient To Recovery: No Disposition: Recovery Room Indications Patient is a 75-year-old male with progressing Parkinson's disease. Day he was getting out of bed in the middle the night to go to the bathroom when he fell. He had the acute onset of hip pain. He was brought to emergency room and admitted by the hospitalist service. X-rays revealed a displaced hip fracture. On x-ray it appeared to be a base of the neck fracture still initial plan was to a treated with an IM nail. However, upon placing him in traction on the fracture table the fracture clearly was in the femoral neck area and very vertical in nature such that I did not think IM nailing would be the appropriate treatment. We proceeded with a cemented bipolar hip arthroplasty. Description of Procedure Operative implants consisted of: 1. Kierra size 14 LD/fracture fracture stem. 2. Size 13 centralizer. 3. +7/28 mm metal articular ball. 4. 53 mm bipolar shell and liner. 5. Large cement restrictor. The patient was taken to the operating room, identified and placed in the operating table supine position but all contractors were properly padded. IV antibiotics tried by anesthesia team. A general anesthetic was implant by the anesthesia team. The patient was then placed on the fracture table. The left leg was placed in boot traction the right leg was placed in a well leg conrad. Applied some longitudinal traction to the left leg and internally rotated the foot. X-ray was brought in. Upon examining the fracture the fracture site clearly begin at the lesser trochanter area and extended vertically up into the femoral neck just below the femoral head. Considering this I did not think he was a good candidate for IM nailing and elected proceed with a bipolar hip arthroplasty. The patient was then taken off the fracture table and transported to a regular operating room bed. He was placed in the right lateral decubitus position. An axillary roll was placed. A Stulberg hip positioner was used for positioning. The left hip and leg were scrubbed with Hibiclens and then prepped with Chlor aPrep and draped in the usual sterile fashion. A posterior lateral approach to the left hip was then performed to a curvilinear incision centered over the greater trochanter. Sharp dissection was got through subcutaneous tissue down below the IT band gluteal fascia but the IT band gluteal fascia was incised longitudinally in line with skin incision. The underlying greater bursa was excised. The piriformis and external rotators were tagged and taken off the posterior aspect of the hip joint capsule. The hip joint capsule was then released leaving a large flap for later repair. Hip was internally rotated. Femoral neck osteotomy cut was made near the base of the fracture. I did not quite dionna this the whole way down to the lesser trochanter but close. I was concerned that I might shorten him too much and could not make the supple with the neck length. The femoral head was and neck were removed and sent for pathology. The acetabulum was exposed and showed no significant arthritic change. The acetabular was sized to a size 53. Attention drawn back to the femur. Proximal femur was entered with a cookie-cutter followed by canal finder and lateralizing reamer. I broached beginning with size 12 and progressing up to a 14. The 14 fit nicely. We then trialed the hip. The +7 articular ball seem to recreate leg length equal and soft tissue tension appropriately. Appeared perfectly stable in full extension and external rotation flexion to 9 degrees internal rotation over [address] these implants. All trial implants were removed. A cement restrictor was placed. A double batch of Palacos G cement was mixed and then injected in the canal. A size 14 Kierra stem was then placed in maximum anteversion. All extraneous cement was removed. Once the cement hardened a final trial was performed. We then placed the permanent +7/28 mm head with a bipolar shell and liner and reduce the hip. Once again found to be stable. Attention drawn toward closing. The posterior capsule was then repaired with #2 Tycron suture. I also repaired some of the capsule to the posterior aspect of the hip through the bone tunnels in the trochanter. The piriformis and external rotators were repaired to the posterior hip abductors with a #2 Tycron suture. I did irrigate the wound extensively. I injected locally with 60 cc of half percent Marcaine with epinephrine. The IT band gluteal fascia was then closed with #1 PDS suture in running fashion for subcutaneous tissue then closed with 2 layers of the deep layer #1 Vicryl suture subcutaneous tissue with 2-0 Dexon suture in a buried interrupted fashion. Skin was then closed with skin patricia. Leg was then cleaned dried a sterile dressing was Xeroform, 4 x 4's, sterile ABD pad, foam tape was applied. The patient then brought out of general anesthesia and transferred to the recovery room in stable condition. Patient tolerated procedure well and there were no complications. Austin Carlson, my physician butcher's assistant, was present for the entire procedure. His assistance was essential and required for appropriate patient positioning, prepping and draping, surgical exposure, performing the technical details of the operation, placement the implants, closure of the wound, and placement of the sterile bandage. I attest to the content of the Intraoperative Record and any orders documented therein. Any exceptions are noted below.
[2021-01-21] MEDS ORDERED: PROCHLORPERAZINE MALEATE 5 MG TAB PO ONE (20:10)
[2021-01-21] MEDS ORDERED: PROCHLORPERAZINE 5 MG in SYRINGE 4 ML IV ONE (20:15)
--- NOTE | 2021-01-21 20:43 | Billing Data ---
Date of Service January 21, 2021 Coding Level of Care Code 15097 Subseq Hosp Care Lvl 3
[2021-01-21] MEDS: ACETAMINOPHEN 325 MG TAB PO PRN (21:02)
[2021-01-21] MEDS: ASPIRIN 81 MG ECTAB PO SCH (21:03)
[2021-01-21] MEDS: DOCUSATE SODIUM/SENNA 50/8.6MG TAB PO SCH (21:04)
[2021-01-21] MEDS: TAMSULOSIN HCL 0.4 MG CAP PO SCH (21:04)
[2021-01-22] MEDS: oxyCODONE HCL IR 5 MG TAB (IMMEDIATE RELEASE) PO PRN ×4 (04:03→23:22)
[2021-01-22] MEDS: ACETAMINOPHEN 325 MG TAB PO PRN (05:59)
[2021-01-22] MEDS: LEVOTHYROXINE SODIUM 150 MCG TABLET PO SCH (06:02)
[2021-01-22 06:23] LABS: Hematocrit (blood only) 30.8 % (42-52); Hemoglobin 10.1 g/dL (14.0-18.0); Immature Granulocytes # (auto) 0.01 K/uL (0.00-0.02); Immature Granulocytes % (auto) 0.1 %; Lymphocytes # (auto) 1.98 K/uL (1.2-3.4); Lymphocytes % (auto) 19.9 %; Mean Corpuscular Hemoglobin 29.1 pg (25-34); Mean Corpuscular Hgb Conc 32.8 g/dL (32-36); Mean Corpuscular Volume 88.8 fL (80-100); Mean Platelet Volume 12.1 fL (7.4-10.4); Monocytes # (auto) 0.77 K/uL (0.11-0.59); Monocytes % (auto) 7.7 %; Neutrophils % (auto) 72.3 %; Platelet Count 140 K/uL (130-400); RDW Coefficient of Variation 14.5 % (11.5-14.5); Red Blood Count 3.47 M/uL (4.7-6.1); White Blood Count 9.96 K/uL (4.8-10.8)
--- NOTE | 2021-01-22 06:40 | Electrocardiogram Report ---
Test Reason : Blood Pressure : / mmHG Vent. Rate : 065 BPM Atrial Rate : 065 BPM P-R Int : 148 ms QRS Dur : 102 ms QT Int : 414 ms P-R-T Axes : 039 -28 -44 degrees QTc Int : 430 ms Normal sinus rhythm Abnormal ECG When compared with ECG of 28-SEP-2019 22:01, T wave inversion more evident in Anterolateral leads Confirmed by Jaya Montelongo ([id number]) on 01/22/2021 6:39:45 AM Referred By: REFERRED SELF Confirmed By:Jaya Montelongo
[2021-01-22 06:41] LABS: Albumin Level 2.8 gm/dl (3.4-5.0); BUN Creatinine Ratio 20.2 (10-20); Calcium 7.8 mg/dl (8.5-10.1); Creatinine Clr Calc Pharmacy 32.6 ml/min; Est GFR (African American) 40.4; Est GFR (Non-African American) 34.8; Potassium 4.1 mmol/L (3.5-5.1)
[2021-01-22 06:49] LABS: Albumin Globulin Ratio 1.1 (0.9-2); Bilirubin,Total 0.6 mg/dl (0.2-1); Globulin 2.5 gm/dl (2.5-4.0); Total Protein 5.3 gm/dl (6.4-8.2)
[2021-01-22] MEDS: ACYCLOVIR 200 MG CAP PO SCH (08:12)
[2021-01-22] MEDS: hydrALAZINE TAB 50 MG TAB PO SCH ×3 (08:12→20:35)
[2021-01-22] MEDS: buPROPion SR 150 MG TABCR PO SCH ×2 (08:12→20:36)
[2021-01-22] MEDS: ASPIRIN 81 MG ECTAB PO SCH ×2 (08:13→20:34)
[2021-01-22] MEDS: CARBIDOPA/LEVODOPA 25-250 1 EA TAB PO SCH ×4 (08:13→20:35)
[2021-01-22] MEDS: CHOLECALCIFEROL 1,000 UNITS 25 MCG TAB PO SCH (08:13)
[2021-01-22] MEDS: IBRUTINIB 140 MG PO SCH (08:13)
--- NOTE | 2021-01-22 08:49 | Orthopedic Progress Note ---
Date of Service January 22, 2021 Assessment & Plan (1) Closed fracture of left hip: He is doing pretty well this morning. We reviewed the operation with him briefly. Continue PT/OT, WBAT. DVT prophylaxis (teds, scds, aspirin). Hip precautions. He was seen and examined by Dr. Diogo Mercado . 75 y/o male POD #1 from cemented left bipolar hemiarthroplasty. Pain controlled. He said he feels pretty good today. No new complaints. Review of Systems All systems reviewed & are unremarkable except as noted in HPI & below. Physical Exam . Alert and oriented. NAD. Left leg well aligned. NVI. able to dorsiflex and plantarflex. Results & Data Results & Data Laboratory Results . Diagnostic Findings . PG Care Time/CCT Total # of Minutes Spent Total Time Spent with Patient: Total time spent is greater than 50% in coordination of care (as documented) at patient's floor/unit and/or counseling patient: Coding Level of Care Code 34781 Post Operative Follow-Up Diagnoses Closed fracture of left hip S72.002A Encounter type: initial encounter (1) Closed fracture of left hip Encounter type: initial encounter Qualified Code(s): S72.002A - Fracture of unspecified part of neck of left femur, initial encounter for closed fracture
--- NOTE | 2021-01-22 09:42 | Hospitalist Progress Note ---
Date of Service January 22, 2021 Assessment & Plan (1) Closed fracture of left hip: Closed L Hip Fx - POD1 - pain control with Dilaudid 0.25 and 0.5 mg IV PRN Q3 with PT, oxycodone 5 mg Q4, oxycodone 10 mg Q4, - Per PT will require rehab ADELSO - mild Cr bump from 1.6 to 1.8 this AM - IVF continued and recommended increasing oral intake of fluids - will follow BMP HTN - cont hydralazine 50 mg TID, losartan 50 mg, metoprolol tartrate 50 mg Parkinsons - cont levadopa Depression/Anxiety - cont buproprion hx waldenstrom's macroglobulinemia - cont imbruvica hypothyroidism - cont levothyroxin BPH - cont tamsulosin dvt ppx: scd fen/gi: regular Code status: full code dispo: Rehab auth pending (2) Poorly-controlled hypertension: (3) Chronic kidney disease: (4) Parkinson disease: Admission and Anticipated Discharge Date Admission Date: January 21, 2021 Supervising Physician Co-Signing Physician Notes I personally examined the patient and verified all arizmendi points of history and exam, discussed case, and agree with decision making with Dr Soto Feeling okay overall. Seen in the middle of whenever he is doing PT. Full assessment was not done yet at that time, but in discussion with therapist, the patient had enough trouble with sitting up and transferring that it was likely that rehab would be recommended. Patient himself noted he would rather go home and do therapy, I discussed that this would not provide any additional supportive care, and that therapist would come to the house a few times a week, but otherwise he and his would be left to his own devices. Vitals noted, in general he is awake and alert pleasant generally in no distress, sitting up in a chair. HEENT normocephalic atraumatic mucous m embranes moist. Breathing unlabored no accessory muscle use good effort. Skin shows no rashes no pallor or icterus. Mental status shows good recent and remote recall normal mood and affect. Hip fracturepossible osteoporoticpostop and stable. PT/OT eval and treat, anticipate need for rehab Otherwise as above. Subjective no complaints this morning. working with PT. pain controlled. Review of Systems Constitutional: no fever, no chills, no body aches and no fatigue Respiratory: no cough and no dyspnea Cardiovascular: no chest pain, no dyspnea and no edema Gastrointestinal: no abdominal pain, no nausea, no vomiting, no constipation and no diarrhea/loose stools Physical Exam Physical Exam: Constitutional: in no apparent distress, sitting up at bedside with PT Eyes: EOMI, pupils equal and reactive bilaterally, no scleral icterus Cardiac: RRR, no murmurs, gallops or rubs. Normal S1, S2 Pulm: CTA BL, no wheezes, rhonchi, crackles or rubs, moving air well throughout both lungs Abd: soft, nontender, nondistended, normal bowel sounds, no rebound or guarding Extremities: 2+ peripheral pulses, no edema Results & Data Results & Data ([facility]) Vital Signs (Past 12 Hours) Vital Signs Temp Pulse Resp BP BP Pulse Ox 01/22/21 07:25 36.8 C 72 18 125/66 92 01/22/21 02:10 36.7 C 77 18 115/66 92 01/21/21 22:31 37 C 73 15 125/75 96 Resident Activity Tracking Resident Involvement: Resident Care Provided Care Provided: Adult Hospital Medicine (1) Chronic kidney disease Chronic kidney disease stage: unspecified stage Qualified Code(s): N18.9 - Chronic kidney disease, unspecified (2) Closed fracture of left hip Encounter type: initial encounter Qualified Code(s): S72.002A - Fracture of unspecified part of neck of left femur, initial encounter for closed fracture
[2021-01-22] MEDS: ONDANSETRON INJ 2 MG/ML 2 ML VIAL IV PRN (10:16)
[2021-01-22] MEDS: LACTATED RINGER'S 1,000 ML IV SCH ×2 (10:55→22:32)
[2021-01-22] MEDS ORDERED: SODIUM CHLORIDE 0.9% 1000ML 1,000 ML IV SCH (11:15)
[2021-01-22] MEDS ORDERED: SODIUM CHLORIDE 0.9% 500 ML IV SCH (11:15)
--- NOTE | 2021-01-22 20:08 | Billing Data ---
Date of Service January 22, 2021 Coding Level of Care Code 07775 Subseq Hosp Care Lvl 2
[2021-01-22] MEDS: TAMSULOSIN HCL 0.4 MG CAP PO SCH (20:35)
[2021-01-22] MEDS: DOCUSATE SODIUM/SENNA 50/8.6MG TAB PO SCH (20:36)
[2021-01-23] MEDS: LEVOTHYROXINE SODIUM 150 MCG TABLET PO SCH (06:13)
[2021-01-23 07:42] LABS: Alanine Aminotransferase < 6 U/L (12-78); Albumin Level 2.6 gm/dl (3.4-5.0); Aspartate Aminotransferase 33 U/L (15-37); BUN Creatinine Ratio 19.4 (10-20); Blood Urea Nitrogen 37 mg/dl (7-18); Calcium 8.2 mg/dl (8.5-10.1); Carbon Dioxide 28 mmol/L (21-32); Chloride 106 mmol/L (98-107); Creatinine Clr Calc Pharmacy 31.5 ml/min; Est GFR (African American) 38.8; Est GFR (Non-African American) 33.5; Glucose 92 mg/dl (70-99); Potassium 3.8 mmol/L (3.5-5.1); Sodium 139 mmol/L (136-145)
[2021-01-23 07:46] LABS: Albumin Globulin Ratio 1.1 (0.9-2); Alkaline Phosphatase 70 U/L (45-117); Bilirubin,Total 0.6 mg/dl (0.2-1); Globulin 2.4 gm/dl (2.5-4.0)
[2021-01-23] MEDS: HYDROmorphone INJ 0.5 MG/0.5 ML SYR IV PRN (07:48)
[2021-01-23 07:49] LABS: Hematocrit (blood only) 27.2 % (42-52); Hemoglobin 8.9 g/dL (14.0-18.0); Mean Corpuscular Hemoglobin 29.5 pg (25-34); Mean Corpuscular Hgb Conc 32.7 g/dL (32-36); Mean Corpuscular Volume 90.1 fL (80-100); Mean Platelet Volume 12.4 fL (7.4-10.4); Platelet Count 106 K/uL (130-400); RDW Coefficient of Variation 14.8 % (11.5-14.5); Red Blood Count 3.02 M/uL (4.7-6.1); White Blood Count 6.92 K/uL (4.8-10.8)
[2021-01-23 07:50] LABS: Basophils # (auto) 0.01 K/uL (0-0.2); Basophils % (auto) 0.1 %; Immature Granulocytes # (auto) 0.02 K/uL (0.00-0.02); Immature Granulocytes % (auto) 0.3 %; Lymphocytes # (auto) 1.25 K/uL (1.2-3.4); Lymphocytes % (auto) 18.1 %; Monocytes # (auto) 1.53 K/uL (0.11-0.59); Monocytes % (auto) 22.1 %; Neutrophils # (auto) 4.11 K/uL (1.4-6.5); Neutrophils % (auto) 59.4 %; Platelet Estimate Decreased (Normal)
[2021-01-23] MEDS: LACTATED RINGER'S 1,000 ML IV SCH ×2 (08:22→20:36)
[2021-01-23] MEDS: ASPIRIN 81 MG ECTAB PO SCH ×2 (08:23→20:39)
[2021-01-23] MEDS: hydrALAZINE TAB 50 MG TAB PO SCH ×3 (08:23→20:38)
[2021-01-23] MEDS: CHOLECALCIFEROL 1,000 UNITS 25 MCG TAB PO SCH (08:23)
[2021-01-23] MEDS: buPROPion SR 150 MG TABCR PO SCH ×2 (08:24→20:40)
[2021-01-23] MEDS: CARBIDOPA/LEVODOPA 25-250 1 EA TAB PO SCH ×4 (08:24→20:39)
[2021-01-23] MEDS: IBRUTINIB 140 MG PO SCH (08:26)
--- NOTE | 2021-01-23 09:16 | Progress Notes ---
DATE: 01/23/2021 SUBJECTIVE: A 75-year-old gentleman postop day 2 from a left cemented bipolar hip arthroplasty for fracture. He is doing okay. Having a moderate amount of pain. No new complaints. No chest pain or shortness of breath. OBJECTIVE: VITAL SIGNS: Temperature is 37.1. Vital signs stable. GENERAL: Shows a pleasant elderly male. He is lying in bed, looks reasonably comfortable this morning. EXTREMITIES: Examination of the left hip reveals the dressing to be clean, dry and intact. His leg lengths are equal. His thigh is soft and supple. He is neurologically intact. LABORATORY DATA: Labs are pending this morning. ASSESSMENT: A 75-year-old gentleman with underlying Parkinson disease, postoperative day 2 from a left cemented bipolar hip arthroplasty for fracture. He seems to be doing reasonably well. Pain is reasonably well controlled. His hip is located. He is neurologically intact. PLAN: 1. DVT prophylaxis including thigh-high TEDs, SCDs, and aspirin twice a day. 2. PT/OT. Weight bear as tolerated. Left total hip protocol. 3. Pain control, seems to be doing okay with current pain regimen. 4. Medical management as per the medicine service. 5. Disposition: He is orthopedically okay for discharge any time. I need to see him back in 2-3 weeks from surgery date. Any orthopedic questions can be directed to me at [phone].
[2021-01-23] MEDS ORDERED: ONDANSETRON INJ 2 MG/ML 2 ML VIAL IV ONE (09:45)
--- NOTE | 2021-01-23 09:46 | Hospitalist Progress Note ---
Date of Service January 23, 2021 Assessment & Plan (1) Closed fracture of left hip: Closed L Hip Fx - POD2 - pain control with Dilaudid 0.25 and 0.5 mg IV PRN Q3 with PT, oxycodone 5 mg Q4, oxycodone 10 mg Q4, - Per PT will require rehab ADELSO on CKD - Cr elevated to 1.9, likely secondary to decreased hg - recommended increasing oral intake of fluids - hold losartaning - will follow BMP Anemia - secondary to hip fracture - no hematuria, bruising, swelling, hematochezia - will continue to watch going forward HTN - cont hydralazine 50 mg TID - holding metoprolol and losartan Parkinsons - cont levadopa Depression/Anxiety - cont buproprion hx waldenstrom's macroglobulinemia - cont imbruvica hypothyroidism - cont levothyroxine BPH - cont tamsulosin dvt ppx: heparin 5000 BID SQ fen/gi: regular Code status: full code dispo: Rehab auth pending (2) Poorly-controlled hypertension: (3) Chronic kidney disease: (4) Parkinson disease: Admission and Anticipated Discharge Date Admission Date: January 21, 2021 Supervising Physician Co-Signing Physician Notes I personally examined the patient and verified all arizmendi points of history and exam, discussed case, and agree with decision making with Dr Soto Feeling okay overall. Still has some pain, but reasonably controlled. Accepting of the idea that he probably needs some form of inpatient rehab for now. Vitals noted, in general he is awake and alert pleasant generally in no distress, sitting up in a chair. HEENT normocephalic atraumatic mucous membranes moist. Breathing unlabored no accessory muscle use good effort. Skin shows no rashes no pallor or icterus. Mental status shows good recent and remote recall normal mood and affect. Hip fracturepossible osteoporoticpostop and stable. PT/OT eval and treat, transfer to rehab once approved/once bed is available Otherwise as above. Subjective feeling somewhat lightheaded today. no pain. no melena, hematuria, hematemesis. Review of Systems Review of Systems: All systems reviewed & are unremarkable except as noted in Subjective Constitutional: no body aches Respiratory: no cough and no dyspnea Gastrointestinal: + nausea Physical Exam Physical Exam: Constitutional: in no apparent distress, sitting up at bedside with PT Eyes: EOMI, pupils equal and reactive bilaterally, no scleral icterus Cardiac: RRR, no murmurs, gallops or rubs. Normal S1, S2 Pulm: CTA BL, no wheezes, rhonchi, crackles or rubs, moving air well throughout both lungs Abd: soft, nontender, nondistended, normal bowel sounds, no rebound or guarding Extremities: 2+ peripheral pulses, no edema Results & Data Results & Data ([facility]) Vital Signs (Past 12 Hours) Vital Signs Temp Pulse Resp BP BP Pulse Ox 01/23/21 07:20 37.1 C 89 16 127/68 93 01/22/21 22:37 37.1 C 89 18 145/70 H 91 Laboratory Results WBC 6.92 K/uL (4.8-10.8) 01/23/21 06:35 RBC 3.02 M/uL (4.7-6.1) L 01/23/21 06:35 Hgb 8.9 g/dL (14.0-18.0) L 01/23/21 06:35 Hct 27.2 % (42-52) L 01/23/21 06:35 MCV 90.1 fL (80-100) 01/23/21 06:35 MCH 29.5 pg (25-34) 01/23/21 06:35 MCHC 32.7 g/dL (32-36) 01/23/21 06:35 RDW Std Deviation 49.0 fL (36.4-46.3) H 01/23/21 06:35 RDW Coeff of Silvia 14.8 % (11.5-14.5) H 01/23/21 06:35 Plt Count 106 K/uL (130-400) L 01/23/21 06:35 MPV 12.4 fL (7.4-10.4) H 01/23/21 06:35 Immature Gran % (Auto) 0.3 % 01/23/21 06:35 Neut % (Auto) 59.4 % 01/23/21 06:35 Lymph % (Auto) 18.1 % 01/23/21 06:35 [place] % (Auto) 22.1 % 01/23/21 06:35 Eos % (Auto) 0.0 % 01/23/21 06:35 Baso % (Auto) 0.1 % 01/23/21 06:35 Neut # (Auto) 4.11 K/uL (1.4-6.5) 01/23/21 06:35 Lymph # (Auto) 1.25 K/uL (1.2-3.4) 01/23/21 06:35 [place] # (Auto) 1.53 K/uL (0.11-0.59) H 01/23/21 06:35 Eos # (Auto) 0.00 K/uL (0-0.5) 01/23/21 06:35 Baso # (Auto) 0.01 K/uL (0-0.2) 01/23/21 06:35 Immature Gran # (Auto) 0.02 K/uL (0.00-0.02) 01/23/21 06:35 Neutrophils % (Manual) 57.8 % 01/21/21 01:25 Lymphocytes % (Manual) 11.4 % 01/21/21 01:25 Monocytes % (Manual) 7.9 % 01/21/21 01:25 Eosinophils % (Manual) 0.9 % 01/21/21 01:25 Basophils % (Manual) 0.9 % 01/21/21 01:25 Neutrophils # (Manual) 4.03 K/uL (1.4-6.5) 01/21/21 01:25 Total Absolute Neuts 4.03 K/uL (1.4-6.5) 01/21/21 01:25 Lymphocytes # (Manual) 0.79 K/uL (1.2-3.4) L 01/21/21 01:25 Total Abs Lymphocytes 2.27 K/uL (1.2-3.4) 01/21/21 01:25 Monocytes # (Manual) 0.55 K/uL (0.11-0.59) 01/21/21 01:25 Eosinophils # (Manual) 0.06 K/uL (0-0.5) 01/21/21 01:25 Basophils # (Manual) 0.06 K/uL (0-0.2) 01/21/21 01:25 Large Granular Lymphs 21.1 % 01/21/21 01:25 # Lrg Granular Lymphs 1.47 K/uL 01/21/21 01:25 Platelet Estimate Decreased (Normal) L 01/23/21 06:35 Giant Platelets 1+ 01/21/21 01:25 PT 9.8 Seconds (9.0-12.0) 01/21/21 01:25 INR 1.0 (0.9-1.1) 01/21/21 01:25 APTT 23.3 Seconds (21.0-31.0) 01/21/21 01:25 PTT Ratio 0.9 01/21/21 01:25 Sodium 139 mmol/L (136-145) 01/23/21 06:35 Potassium 3.8 mmol/L (3.5-5.1) 01/23/21 06:35 Chloride 106 mmol/L (98-107) 01/23/21 06:35 Carbon Dioxide 28 mmol/L (21-32) 01/23/21 06:35 Anion Gap 5.0 (3-11) 01/23/21 06:35 BUN 37 mg/dl (7-18) H 01/23/21 06:35 Creatinine 1.90 mg/dl (0.6-1.4) H 01/23/21 06:35 Est Cr Clr Drug Dosing 31.5 ml/min 01/23/21 06:35 Est GFR ( Amer) 38.8 01/23/21 06:35 Est GFR (Non-Af Amer) 33.5 01/23/21 06:35 BUN/Creatinine Ratio 19.4 (10-20) 01/23/21 06:35 Glucose 92 mg/dl (70-99) 01/23/21 06:35 Calcium 8.2 mg/dl (8.5-10.1) L 01/23/21 06:35 Total Bilirubin 0.6 mg/dl (0.2-1) 01/23/21 06:35 AST 33 U/L (15-37) 01/23/21 06:35 ALT < 6 U/L (12-78) L 01/23/21 06:35 Alkaline Phosphatase 70 U/L (45-117) 01/23/21 06:35 Total Protein 5.0 gm/dl (6.4-8.2) L 01/23/21 06:35 Albumin 2.6 gm/dl (3.4-5.0) L 01/23/21 06:35 Globulin 2.4 gm/dl (2.5-4.0) L 01/23/21 06:35 Albumin/Globulin Ratio 1.1 (0.9-2) 01/23/21 06:35 Urine Color Yellow 01/21/21 01:41 Urine Appearance Clear (Clear) 01/21/21 01:41 Urine pH 7.0 (4.5-7.5) 01/21/21 01:41 Ur Specific Pa[place] 1.015 (1.000-1.030) 01/21/21 01:41 Urine Protein Negative (Negative) 01/21/21 01:41 Urine Glucose (UA) Negative (Negative) 01/21/21 01:41 Urine Ketones Negative (Negative) 01/21/21 01:41 Urine Blood Trace (Negative) H 01/21/21 01:41 Urine Nitrite Negative (Negative) 01/21/21 01:41 Urine Bilirubin Negative (Negative) 01/21/21 01:41 Urine Urobilinogen Negative (Negative) 01/21/21 01:41 Ur Leukocyte Esterase Negative (Negative) 01/21/21 01:41 Urine WBC (Auto) 0 /hpf (0-5) 01/21/21 01:41 Urine RBC (Auto) 10-30 /hpf (0-4) H 01/21/21 01:41 U Hyaline Cast (Auto) 1-5 /lpf (0-5) 01/21/21 01:41 U Epithel Cells (Auto) 0-5 /lpf (0-5) 01/21/21 01:41 Urine Bacteria (Auto) Negative (Negative) 01/21/21 01:41 COVID-19 Eval Order CovFluRsv at [facility] 01/21/21 02:54 SARS-CoV-2 (PCR) NEGATIVE (Negative) 01/21/21 02:54 Influenza Type A (PCR) Negative (Neg) 01/21/21 02:54 Influenza Type B (PCR) Negative (Neg) 01/21/21 02:54 RSV (RT-PCR) Negative (Neg) 01/21/21 02:54 Blood Type A Positive 01/21/21 01:33 Antibody Screen NEGATIVE 01/21/21 01:33 Impressions Chest X-Ray 01/21/21 01:23 XR chest 1V portable HISTORY: 75 years-old Male pre-op acute chest trauma status post fall. Acute fracture of the left hip COMPARISON: Chest radiograph 12/10/2020 TECHNIQUE: Portable AP view the chest FINDINGS: Cardiac silhouette is enlarged. Battery pack of the left chest with leads projecting superiorly along the left neck. No pneumothorax, pleural effusion, airspace consolidation or overt pulmonary edema. Bones appear grossly intact. IMPRESSION: No acute process. ACT 112: Negative or not required by law. The above report was generated using voice recognition software. It may contain grammatical, syntax or spelling errors. Electronically signed by: Jeffry Boss M.D. 01/21/2021 8:10 AM Hip X-Ray 01/21/21 16:26 LEFT HIP 2 VIEWS CLINICAL HISTORY: Postoperative examination. FINDINGS: AP and crosstable lateral views of the left hip are compared to study performed earlier the same day 01/21/2021. The skeletal structures are osteopenic. A unipolar left hip arthroplasty is in near-anatomic alignment. No acute fracture is identified. The visualized left hemipelvis appears intact. Skin clips, soft tissue swelling, and subcutaneous gas overlying the left hip are expected postoperative changes. IMPRESSION: Expected postoperative findings status post left hip arthroplasty placement. No acute fracture is seen. Electronically signed by: Hi Rodney M.D. 01/21/2021 5:00 PM Resident Activity Tracking Resident Involvement: Resident Care Provided Care Provided: Adult Hospital Medicine (1) Chronic kidney disease Chronic kidney disease stage: unspecified stage Qualified Code(s): N18.9 - Chronic kidney disease, unspecified (2) Closed fracture of left hip Encounter type: initial encounter Qualified Code(s): S72.002A - Fracture of unspecified part of neck of left femur, initial encounter for closed fracture
[2021-01-23] MEDS ORDERED: POLYETHYLENE (MIRALAX) 17 GM PACK PO ONE (10:00)
[2021-01-23] MEDS: ACETAMINOPHEN 325 MG TAB PO PRN (19:49)
--- NOTE | 2021-01-23 20:24 | Billing Data ---
Date of Service January 23, 2021 Coding Level of Care Code 05375 Subseq Hosp Care Lvl 2
[2021-01-23] MEDS: DOCUSATE SODIUM/SENNA 50/8.6MG TAB PO SCH (20:38)
[2021-01-23] MEDS: TAMSULOSIN HCL 0.4 MG CAP PO SCH (20:38)
[2021-01-24] MEDS: LEVOTHYROXINE SODIUM 150 MCG TABLET PO SCH (05:30)
[2021-01-24 06:13] LABS: Hematocrit (blood only) 22.5 % (42-52); Hemoglobin 7.3 g/dL (14.0-18.0); Mean Corpuscular Hemoglobin 29.2 pg (25-34); Mean Corpuscular Hgb Conc 32.4 g/dL (32-36); RDW Coefficient of Variation 14.7 % (11.5-14.5); RDW Standard Deviation 48.7 fL (36.4-46.3)
[2021-01-24 06:22] LABS: Mean Platelet Volume 11.6 fL (7.4-10.4); Platelet Count 97 K/uL (130-400)
[2021-01-24] MEDS: ACETAMINOPHEN 325 MG TAB PO PRN ×2 (06:40→17:56)
[2021-01-24 06:41] LABS: Basophils # (auto) 0.01 K/uL (0-0.2); Basophils % (auto) 0.2 %; Immature Granulocytes # (auto) 0.01 K/uL (0.00-0.02); Immature Granulocytes % (auto) 0.2 %; Lymphocytes # (auto) 0.82 K/uL (1.2-3.4); Lymphocytes % (auto) 12.6 %; Monocytes # (auto) 1.41 K/uL (0.11-0.59); Monocytes % (auto) 21.7 %; Neutrophils # (auto) 4.25 K/uL (1.4-6.5); Neutrophils % (auto) 65.3 %; RBC Morphology Unremarkable
[2021-01-24 07:04] LABS: BUN Creatinine Ratio 18.6 (10-20); Calcium 7.8 mg/dl (8.5-10.1); Creatinine Clr Calc Pharmacy 36.8 ml/min; Est GFR (African American) 46.7; Est GFR (Non-African American) 40.3
[2021-01-24] MEDS: hydrALAZINE TAB 50 MG TAB PO SCH ×3 (08:04→21:23)
[2021-01-24] MEDS: ASPIRIN 81 MG ECTAB PO SCH ×2 (08:05→21:24)
[2021-01-24] MEDS: IBRUTINIB 140 MG PO SCH (08:05)
[2021-01-24] MEDS: CHOLECALCIFEROL 1,000 UNITS 25 MCG TAB PO SCH (08:07)
[2021-01-24] MEDS: CARBIDOPA/LEVODOPA 25-250 1 EA TAB PO SCH ×4 (08:07→21:26)
[2021-01-24] MEDS: buPROPion SR 150 MG TABCR PO SCH ×2 (08:08→21:25)
[2021-01-24] MEDS ORDERED: POLYETHYLENE (MIRALAX) 17 GM PACK PO SCH (09:00)
[2021-01-24] MEDS ORDERED: SODIUM CHLORIDE 0.9% 250 ML IV PRN (10:00)
[2021-01-24] MEDS: oxyCODONE HCL IR 5 MG TAB (IMMEDIATE RELEASE) PO PRN ×2 (11:31→21:28)
--- NOTE | 2021-01-24 12:19 | Hospitalist Progress Note ---
Date of Service January 24, 2021 Assessment & Plan (1) Closed fracture of left hip: Closed L Hip Fx - POD2 - Patient with continued bleeding from incision and dropping hemoglobin - Due to continued active bleeding will transfuse two units at present -Called Orthopedic surgeon who agrees with transfusion and he believes this will resolve on it's own hope is still to discharge tomorrow for therapy - Will recheck hgb overnight ADELSO on CKD - Cr elevated to 1.9 at highest down to 1.63 today - recommended increasing oral intake of fluids - holding losartan - recheck BMP in Am HTN - cont hydralazine 50 mg TID - holding metoprolol and losartan Parkinsons - cont levadopa Depression/Anxiety - cont buproprion hx waldenstrom's macroglobulinemia - cont imbruvica hypothyroidism - cont levothyroxine BPH - cont tamsulosin dvt ppx: heparin 5000 BID SQ fen/gi: regular Code status: full code dispo: Hopeful to discharge tomorrow will recheck hgb overnight Admission and Anticipated Discharge Date Admission Date: January 21, 2021 Supervising Physician Co-Signing Physician Notes I personally examined the patient and verified all arizmendi points of history and e xam, discussed case, and agree with decision making with Dr Landry Not much of any pain. Still having bleeding and oozing from incision. Vitals noted, in general he is awake and alert pleasant generally in no distress, sitting up in a chair. HEENT normocephalic atraumatic mucous membranes moist. Breathing unlabored no accessory muscle use good effort. Skin shows no rashes no pallor or icterus. Left hip dressed, has just been changed after saturation, and bloody drainage can already be seen forming. Mental status shows good recent and remote recall normal mood and affect. Hip fracturepossible osteoporoticpostop and stable. PT/OT eval and treat, will need rehab once anemia has stabilized Acute blood loss anemiarelated to hip fracture. Continues to ooze. Given his hemoglobin continuing to drop and his overall frailtyagree with transfusion. Follow closely. Otherwise as above. Subjective Srikanth is resting comfortably, able to get up and walk with help, using walker well. Having some pain in his backside. WHile up walking with PT had some blood dripping. Not having any lightheadedness, chest pain, shortness of breath or palpitations. Review of Systems Review of Systems: All systems reviewed & are unremarkable except as noted in HPI & below Physical Exam Physical Exam: Constitutional: Well appearing 75 year old man, easily conversive no acute distress Eyes: Pupils equal round and reactive to light, EOMMIT b/l ENMT: NAD Respiratory: NO increased work of breathing, lung sounds vesicular in all lung elizondo Cardiovascular: Regular rate regular rhythm, systolic ejection murmur, Peripheral pulses strong and equal bilaterally GI: Abdomen soft and non tender no masses Skin: Bandage over incision saturated with blood, after removal still slowly oozing bleeding out of incision palpation with increased drainage but no clear hematoma palpated Results & Data Results & Data ([facility]) Vital Signs (Past 12 Hours) Vital Signs Temp Pulse Pulse Resp BP BP Pulse Ox 01/24/21 12:03 37.5 C 84 18 134/68 97 01/24/21 11:44 36.9 C 83 18 129/69 01/24/21 07:00 37.7 C H 83 18 160/71 H 93 Resident Activity Tracking Resident Involvement: Resident Care Provided Care Provided: Adult Hospital Medicine (1) Closed fracture of left hip Encounter type: initial encounter Qualified Code(s): S72.002A - Fracture of unspecified part of neck of left femur, initial encounter for closed fracture
--- NOTE | 2021-01-24 13:25 | Progress Notes ---
DATE: 01/24/2021 CHIEF COMPLAINT: Follow up of his left cemented bipolar hip arthroplasty for fracture. HISTORY OF PRESENT ILLNESS: A 75-year-old gentleman now postop day 3 from bipolar hip arthroplasty for fracture. He is doing okay. A moderate amount of pain, but nothing out of the ordinary. He had quite a bit of drainage and we have been asked to take a look at him today due to that on his dressing. OBJECTIVE: VITAL SIGNS: Temperature 37.3. Vital signs are stable. GENERAL: Shows a pleasant, middle-aged male. He is sitting up in his bedside chair, looks reasonably comfortable. EXTREMITIES: Examination of the left hip does reveal the dressing to be in place. There is a little bit of bloody drainage. I did take the dressing down and the wound is well approximated. There is just a slight bit of bleeding through the incision site. His thigh is fairly soft and supple. No major hematoma accumulation. Leg lengths are equal. He can dorsiflex and plantarflex his foot appropriately. LABORATORY DATA: Hemoglobin is 7.3, hematocrit 22.5. Electrolytes are stable. Creatinine is actually improved at 1.63. ASSESSMENT: A 75-year-old gentleman postoperative day 3 from a left cemented bipolar hip arthroplasty for fracture. He is doing pretty well. His hemoglobin has dropped some. He did bleed a little bit out of his incision site. No major hematoma formation. We will just have to keep an eye on that. I do agree with a transfusion in this elderly gentleman. PLAN: 1. DVT prophylaxis including thigh-high TEDs, SCDs, and I would recommend a baby aspirin twice a day. Hold anymore aggressive anticoagulation especially with bleeding. 2. PT/OT. He can weightbear as tolerated. 3. Routine wound care. 4. Medical management as per the medicine service. 5. Disposition. I do think we should give him some blood and follow this over the next day or two before transferring him out of the hospital. I need to see him back in 2-3 weeks out from surgery. Any orthopedic questions can be directed to me at [phone].
[2021-01-24] MEDS: HYDROmorphone INJ 0.5 MG/0.5 ML SYR IV PRN (14:12)
--- NOTE | 2021-01-24 18:42 | Billing Data ---
Date of Service January 24, 2021 Coding Level of Care Code 56602 Subseq Hosp Care Lvl 3
[2021-01-24] MEDS: TAMSULOSIN HCL 0.4 MG CAP PO SCH (21:23)
[2021-01-24] MEDS: DOCUSATE SODIUM/SENNA 50/8.6MG TAB PO SCH (21:25)
[2021-01-25 00:03] LABS: Hematocrit (blood only) 26.9 % (42-52)
[2021-01-25] MEDS: oxyCODONE HCL IR 5 MG TAB (IMMEDIATE RELEASE) PO PRN ×2 (02:21→02:59)
[2021-01-25 06:16] LABS: Hematocrit (blood only) 27.3 % (42-52); Mean Corpuscular Hemoglobin 29.3 pg (25-34); Mean Corpuscular Volume 88.9 fL (80-100); RDW Coefficient of Variation 14.7 % (11.5-14.5); RDW Standard Deviation 47.9 fL (36.4-46.3); Red Blood Count 3.07 M/uL (4.7-6.1); White Blood Count 7.82 K/uL (4.8-10.8)
[2021-01-25] MEDS: ACETAMINOPHEN 325 MG TAB PO PRN ×2 (06:21→11:10)
[2021-01-25] MEDS: LEVOTHYROXINE SODIUM 150 MCG TABLET PO SCH (06:22)
[2021-01-25 06:38] LABS: Basophils # (auto) 0.01 K/uL (0-0.2); Basophils % (auto) 0.1 %; Giant Platelets 2+; Immature Granulocytes # (auto) 0.01 K/uL (0.00-0.02); Immature Granulocytes % (auto) 0.1 %; Lymphocytes # (auto) 0.78 K/uL (1.2-3.4); Mean Platelet Volume 11.7 fL (7.4-10.4); Monocytes # (auto) 1.31 K/uL (0.11-0.59); Monocytes % (auto) 16.8 %; Neutrophils # (auto) 5.71 K/uL (1.4-6.5); Platelet Count 96 K/uL (130-400); Platelet Estimate Decreased (Normal)
[2021-01-25] MEDS ORDERED: POLYETHYLENE (MIRALAX) 17 GM PACK PO SCH (09:00)
[2021-01-25] MEDS: IBRUTINIB 140 MG PO SCH (09:13)
[2021-01-25] MEDS: buPROPion SR 150 MG TABCR PO SCH (09:14)
[2021-01-25] MEDS: CARBIDOPA/LEVODOPA 25-250 1 EA TAB PO SCH (09:14)
[2021-01-25] MEDS: CHOLECALCIFEROL 1,000 UNITS 25 MCG TAB PO SCH (09:16)
[2021-01-25] MEDS: hydrALAZINE TAB 50 MG TAB PO SCH (09:16)
[2021-01-25] MEDS: ASPIRIN 81 MG ECTAB PO SCH (09:16)
--- NOTE | 2021-01-25 09:19 | Discharge Summary ---
Date of Service January 25, 2021 Admission HPI Per Admitting Provider The patient is a 75-year-old male with a past medical history including lumbar spinal stenosis, hypertension, history of brain surgery, Parkinson's disease, CKD stage III, myofascial pain, cervicalgia, depression, hypertensive urgency, BPH, vitamin D deficiency, hypothyroidism, bilateral sacroiliitis, and Waldenstrom macroglobulinemia. Patient had a mechanical fall as noted above, and x-ray in the emergency department revealed a left hip fracture. The patient reports he has been seen by orthopedic surgery Dr. Harry Lind in the past. Admission Exam Per Admitting Provider The patient is awake, alert and oriented 3, and atraumatic, lying in bed and in no acute distress. HEENT--PERRL, EOMI, mucous membranes and oropharynx normal. Neck--supple. No JVD. No bruits. Thyroid normal, trachea midline, no adenopathy. Heart--normal S1 and S2. No murmurs, rubs or gallops. Lungs--clear bilaterally, no respiratory distress, no accessory muscle use. Abdomen--normal bowel sounds and soft. Nontender. Nondistended. Extremities--no cyanosis or clubbing. No edema. Dermatologic--normal skin turgor, normal color, no abnormal lymph nodes, no ra sh. Neurologic--cranial nerves II through XII grossly intact. Rheumatologic--limited exam due to left hip pain Psychiatric--normal affect. Principal Diagnosis Hip fracture status post repair Discharge Exam Constitutional: in no apparent distress, laying somewhat comfortably in bed. Eyes: EOMI, pupils equal and reactive bilaterally, no scleral icterus Cardiac: RRR, no murmurs, gallops or rubs. Normal S1, S2 Pulm: CTA BL, no wheezes, rhonchi, crackles or rubs, moving air well throughout both lungs Abd: soft, nontender, nondistended, normal bowel sounds, no rebound or guarding Extremities: 2+ peripheral pulses, no edema Discharge Data Allergies Allergy/AdvReac Type Severity Reaction Status Date / Time levofloxacin Allergy Severe Kidney Verified 01/20/21 10:30 injury, ankle swelling lisinopril Allergy Severe Dyspnea Verified 01/20/21 10:30 fentanyl Allergy Intermediate Rash Verified 01/20/21 10:30 olmesartan Allergy Intermediate Rash Verified 01/20/21 10:30 tramadol Allergy Intermediate Rash Verified 01/20/21 10:30 oxycodone Allergy Mild Itching Verified 01/20/21 10:30 pramipexole AdvReac Mild GI symptoms Verified 01/20/21 10:30 topiramate AdvReac Mild GI symptoms Verified 01/20/21 10:30 Consultations 01/21/21 02:31 ED Decision to Admit Stat 01/21/21 05:04 Consult Orthopedic Surgery Routine Procedures Performed Operation Date: 01/21/21 12:30 Actual Procedures p Left Bipolar Hip - Cemented(Left) - Harry Lind MD Ordered Studies 01/21/21 12:00 FL fluoroscopy <1hr Routine FL hip LT 2-3V Routine Hospital Course (1) Closed fracture of left hip: Closed L Hip Fx - Hip fracture on 01/21 repaired with left bipolar hip replacement that day - Doing well with PT, ambulating and bearing weight without much difficulty - Post op course was complicated by a dropping hemoglobin... 10 on day of procedure down to 7.3 and patient was found to have bleeding from his incision. - Transfused two units on 01/24 , ortho re evaluated and felt that this would clear on it's own - 01/25 hemoglobin has remained stable at 9 and patients wound looks much better with just some trace blood. - Recommend checking and replacing bandage a couple times per day and getting an h and h on 01/26 and after as needed ADELSO on CKD - Baseline 1.4, in this admission got as high as 1.9 decreased with fluid administration down to 1.6 - Can recheck BMP tomorrow and continue to encourage good PO hydration - Patient dealing with some constipation which could be driving some of his poor PO intake HTN - cont hydralazine 50 mg TID, losartan 50 mg, metoprolol tartrate 50 mg Parkinsons - cont levadopa Depression/Anxiety - cont buproprion hx waldenstrom's macroglobulinemia - On ibrutinib hypothyroidism - cont levothyroxine BPH - Patient with difficulty urinating after procedure and johnson removed - Have replaced johnson and this will be present on discharge, can remove next week at [facility] PPx: asa 81 fen/gi: regular Code status: full code (2) Closed left hip fracture: (3) Poorly-controlled hypertension: Total Time Total Time Spent Total Time Spent (In Minutes): <30 Discharge Plan Discharge Items Patient Disposition: Transfer Inpatient Rehab Fac Reason For Visit: LEFT HIP FRACTURE Discharge Diagnosis: Left Hip Replacement for Fracture Activity: Per Instructions section Activity Comment: Obey/Follow hip precautions at all times. Weightbearing: Full weightbearing Weightbearing Comment: weightbear as tolerated obeying hip precautions at all times. Non-emergency contact: Primary Care Provider Call non-emergency contact if: you have any medication questions Follow-up/Referrals: Tho Dickerson [Primary Care Provider] - Harry Lind MD [Physician] - (Orthopedic follow-up 2-3 weeks from surgery date.) Diet: Regular Addtl Attending Provider Instructions: ACTIVITY RECOMMENDATIONS: Physical Therapy: * Aggressive physical therapy is not usually needed. You will learn to take care of yourself safely and walk. * Follow the "Hip Precautions Instructions." * In some cases, the neonatal social worker at the hospital will arrange to have a therapist come to your house for the first couple of weeks to help you learn these skills. * You need to practice on your own or with the help of a family member as needed. * When you learn these skills, most of the therapy can be done on your own. Home Exercise: * You were shown a series of exercises in the hospital. Do these exercises three to four times each day including the exercises you were shown in physical therapy. Walking: * Get up and walk several times each day. For the first four weeks, try not to stand or walk for more than one hour at a time. If you do stand or walk for more than one hour, you will not hurt anything, but your leg will likely swell. * As you feel comfortable, you may change from the walker or crutches to a cane and then to independent walking. MEDICATIONS: New Medicine: * You will likely be taking one or more of these medicines: 1. Tramadol - Take, as directed, when you need it, every six hours to control your pain. 2. Iron Sulfate - Take two times each day for the month after surgery to help you replace the blood lost during surgery. 3. Aspirin - Thins your blood to lessen the chance of forming a blood clot. * The most common side effects of pain medicine and iron are nausea and constipation. If nausea or constipation is too much of a problem or if you have any questions about your new medicines or doses, call [facility] at . We will try to help you manage these issues. "VERY IMPORTANT TO READ AND REVIEW" Pain: * The immediate post-operative period after hip replacement surgery is often quite painful. * You are given a prescription for pain medicine. You should take it, as directed, when you need it, especially before physical therapy and before going to bed. Pain that interferes with sleep is very common and can last several months. * You will likely need pain medicine for the first two to four weeks. It will not stop all of the pain. The pain will lessen and as you feel better, you may change to milder pain medicine such as Tylenol. * The most common side effects of pain medicine are nausea and constipation, so don't take more than you need. SPECIAL CARE INSTRUCTIONS: TEDs/Elastic Stockings: * The white elastic stockings help limit swelling and prevent blood clots from forming in your legs. The more you wear them, the more they work. * Wear them for six weeks. Prevention of Infection: * Take antibiotics one hour before any dental cleaning, dental work, urological procedure, gastrointestinal procedure or any invasive surgery in order to prevent your new joint from getting infected. * You may get the antibiotics from the doctor performing the procedure or you may call our office at before and we will call in a prescription to the pharmacy of your choice. Things to Watch For: * Drainage from the incision site that occurs more than one week after your surgery. * Severely increased leg pain or swelling. * Increased redness at the incision site. * Fever above 102 degrees Fahrenheit. * Unusual chest pain or shortness of breath. * Unusual pain or burning with urination. Call [facility] at with any of the above problems or if you have any questions about your medicines or recovery. FOLLOW UP VISIT: Make an appointment to see your doctor for approximately two weeks after surgery for a progress check and staple removal by calling the office at . Addtl [employer] Provider Instructions: Closed L Hip Fx - Hip fracture on 01/21 repaired with left bipolar hip replacement that day - Doing well with PT, ambulating and bearing weight without much difficulty - Post op course was complicated by a dropping hemoglobin... 10 on day of procedure down to 7.3 and patient was found to have bleeding from his incision. - Transfused two units on 01/24 , ortho re evaluated and felt that this would clear on it's own - 01/25 hemoglobin has remained stable at 9 and patients wound looks much better with just some trace blood. - Recommend checking and replacing bandage a couple times per day and getting an h and h on 01/26 and after as needed ADELSO on CKD - Baseline 1.4, in this admission got as high as 1.9 decreased with fluid administration down to 1.6 - Can recheck BMP tomorrow and continue to encourage good PO hydration - Patient dealing with some constipation which could be driving some of his poor PO intake HTN - cont hydralazine 50 mg TID, losartan 50 mg, metoprolol tartrate 50 mg Parkinsons - cont levadopa Depression/Anxiety - cont buproprion hx waldenstrom's macroglobulinemia - On ibrutinib hypothyroidism - cont levothyroxine BPH - Patient with difficulty urinating after procedure and johnson removed - Have replaced johnson and this will be present on discharge, can remove next week at [facility] DVT PPx: asa 81 fen/gi: regular Code status: full code Pending Studies at Discharge: No Stand-Alone Forms: My CISSOID, Smoking Cessation Skilled Items Patient informed of condition?: Yes DNR: No Discharge Level of Care: Acute rehab Communicable Disease: No Discharge Prognosis: Stable Lines: None Urinary Catheter: No Medications and DC Order Prescriptions: New acetaminophen 325 mg Tablet 650 mg PO Q4H PRNQty: 0 RF: 0 polyethylene glycol 3350 [Miralax] 17 gram Powder In Packet 17 g PO BID Qty: 0 RF: 0 sennosides-docusate sodium [Senokot-S] 8.6-50 mg Tablet 2 tab PO HS Qty: 0 RF: 0 aspirin 81 mg Tablet,Delayed Release (Dr/Ec) 81 mg PO BID Qty: 0 RF: 0 magnesium hydroxide [Milk of Magnesia] 400 mg/5 mL Suspension 30 ml PO DAILY PRNQty: 0 RF: 0 bisacodyl 10 mg Suppository 10 mg MI DAILY PRNQty: 0 RF: 0 oxycodone 5 mg Tablet 10 mg PO Q4H PRNQty: 0 RF: 0 oxycodone 5 mg Tablet 5 mg PO Q4H PRNQty: 0 RF: 0 ondansetron HCl (PF) 4 mg/2 mL Solution 4 mg IV Q6H PRNQty: 0 RF: 0 Continued cholecalciferol (vitamin D3) 5,000 unit tablet 5,000 units PO QAM RF: 0 tamsulosin [Flomax] 0.4 mg capsule 0.4 mg PO HS RF: 0 levothyroxine 150 mcg capsule 150 mcg PO QAM RF: 0 hydralazine 50 mg tablet 50 mg PO TID Qty: 270 RF: 3 metoprolol tartrate 50 mg tablet 50 mg PO DIRECTED RF: 0 Imbruvica 280 mg Tablet 280 mg PO QAM RF: 0 carbidopa-levodopa 25-250 mg Tablet 1 tab PO QID RF: 0 acyclovir 200 mg Capsule 200 mg PO BID RF: 0 losartan 50 mg tablet 50 mg PO PM RF: 0 coenzyme Q10 [CoQ-10] 100 mg Capsule 400 mg PO QAM RF: 0 bupropion HCl 150 mg tablet sustained-release 12 hr 150 mg PO BID RF: 0 Discharge Orders: Discharge Order (Routine); Ordered 01/25/21 Ordered By: Farshad Landry Admission Data Admit Date/Time: 01/21/21 04:01 Attending Provider: Chris Love Admit Provider: Hilario Palomo Primary Care Provider: Tho Dickerson Other Providers: Amanda Soto ; [facility] ; [facility] ; [facility] ; Hilario Palomo ; Harry Lind Other Interventions: Discharge Summary Assessment (RN) Last Done: 01/25/21 12:19 Supervising Physician Co-Signing Physician Notes I personally examined the patient and verified all arizmendi points of history and exam, discussed case, and agree with decision making with Dr Landry pain with movement is limiting ability to walk. otherwise no complaints. no cp no sob Vitals noted, in general he is awake and alert pleasant, generally in no distress, sitting in bed. HEENT normocephalic atraumatic mucous membranes moist. Breathing unlabored no accessory muscle use good effort. Skin shows no rashes no pallor or icterus. L leg w (+) strength, but just appears to be quite limited by pain. distal n/v intact as well. lungs clear no r/r/w diminished bibasilar c/w atelectasis Hip fracturepossible osteoporoticpostop and stable. PT/OT eval and treat, for rehab for ongoing care to maximize recovery. Acute blood loss anemiarelated to hip fracture. transfused 2 units, now stable. to be followed at rehab atelectasis - pulse ox, lung exam, low grade temps all consistent. stable for rehab. increased activity should help correct this as much as anything Otherwise as above. Resident Activity Tracking Resident Involvement: Resident Care Provided Care Provided: Adult Hospital Medicine
--- NOTE | 2021-01-25 10:14 | Progress Notes ---
DATE: 01/25/2021 SUBJECTIVE: A 75-year-old gentleman postop day 4 from a left cemented bipolar hip arthroplasty for fracture. He is doing a little better today. Feels a little bit more energetic. Not quite as tired. Pain, he says is kind of comes and goes. A little frustrated. He is having trouble lifting his leg. OBJECTIVE: VITAL SIGNS: Temperature 37.6. Vital signs stable. GENERAL: Shows a pleasant elderly male. He is sitting up in bed, looks pretty comfortable. EXTREMITIES: Examination of the left leg reveals the leg to be well aligned. Dressings in place. He does have just a spotty bloody drainage on it. He can dorsiflex and plantarflex his foot appropriately. He is neurologically intact. LABORATORY DATA: Hemoglobin 9.0. Hematocrit 27.2. Platelets are 96. ASSESSMENT: A 75-year-old gentleman postop day 4 from a left cemented bipolar hip arthroplasty for fracture. He is doing better today. Hemoglobin is improved. Seems a little bit more energetic. Still a little bit of bloody drainage, but seems to be decreased. No major hematoma formed. Hip is located. He is neurologically intact. PLAN: 1. DVT prophylaxis including thigh-high TEDs, SCDs, and we will stick to aspirin. His platelets are low, but certainly adequate. 2. PT/OT. He can weightbear as tolerated. 3. Pain control, doing okay with current pain regimen. 4. Wound management. Just a routine wound care left hip. Dressing change twice a day. 5. Disposition. He is orthopedically okay for discharge to a rehab any time medically acceptable. I need to see him back in 2-3 weeks out from surgery. Any orthopedic questions can be directed to me at [phone].
--- NOTE | 2021-01-25 19:17 | Billing Data ---
Date of Service January 25, 2021 Coding Level of Care Code D/C Day Management <30 mins
== END 2021-01-25 12:50 | DRG 522 ==
LOC: ED 01:17 → 3W 04:01 → SUATTDRO 04:01 → 3W 04:28

== ENCOUNTER 2021-10-10 10:21 | Inpatient (IN) ==
[2021-10-10] MEDS ORDERED: ONDANSETRON INJ 2 MG/ML 2 ML VIAL IV STA (10:50)
[2021-10-10] MEDS ORDERED: SODIUM CHLORIDE 0.9% 1000ML 500 ML IV ONE (10:50)
[2021-10-10] MEDS ORDERED: dexAMETHasone**PF** 10 MG/ML VIAL IV ONE (10:50)
[2021-10-10] MEDS ORDERED: ALBUT/IPRATROP 3MG/0.5MG NEB 3 ML VIAL INH STA (10:50)
[2021-10-10] MEDS ORDERED: ACETAMINOPHEN 1000 MG/100 ML IV IV STA (10:50)
--- NOTE | 2021-10-10 10:58 | Emergency Department Note ---
Impression & Plan Hypoxia, SOB (shortness of breath), Pneumonia, COVID-19 ED Provider Note NAME: MARTIN TORRES AGE: 76 SEX: M : 1945 ARRIVES VIA: Walk-In INFORMANT: [Patient][] ED PROVIDER(S): [Hi Valdovinos MD] CHIEF COMPLAINT: Short of breath HISTORY OF PRESENT ILLNESS: The patient is a 76-year-old male who presents to the ED with shortness of breath. He has been sick with flulike symptoms for about 10 days. He tested positive for COVID-19 at home on the , 7 days ago. He was in the ED on the , 6 days ago. At the time of the ED visit, he did have a subtle Covid pneumonia on chest x-ray. He was not hypoxic. He was discharged with cough medication. The patient has not done well at home the last few days. He has become more short of breath and is running a fever. He is coughing quite a bit. He has lost 16 pounds. He has no appetite and feels dehydrated. The patient is vaccinated x2 against COVID-19. He also has had an influenza vaccine. The patient states he does have some immunocompromise as he has Waldenstrom's macroglobulinemia. He oftentimes receives IVIG although, he has not received this medication lately. REVIEW OF SYSTEMS: See HPI for pertinent positives and negatives. A total of ten systems were reviewed and were otherwise negative. PMHx/PSHx: See Below SOCIAL HISTORY: See Below. PHYSICAL EXAM: GENERAL: Patient is in no acute distress. HEENT: No acute trauma, normocephalic atraumatic, mucous membranes moist, no nasal congestion, no scleral icterus. NECK: No stridor, no adenopathy, no meningismus, trachea is midline. LUNGS: There is an increased respiratory rate. No significant respiratory distress. He has crackles at both bases, especially on the right. A dry cough is noted. HEART: Without murmurs gallops or rubs, mildly tachycardic, regular rhythm. ABDOMEN: Soft, nontender, bowel sounds positive, no hernias, no peritonitis. EXTREMITIES: No cyanosis or edema, full range of motion of all the joints without pain or difficulty, no signs for acute trauma. NEUROLOGIC: Oriented x 3, awake and alert. Good historian. SKIN: No rash, no jaundice, no diaphoresis. DIFFERENTIAL DIAGNOSIS: Reactive airway disease, pneumonia, pneumothorax, COVID-19, influenza, failed outpatient treatment, immunocompromise, COPD, CHF, infection, cardiac ischemia, pulmonary embolism, bronchitis, musculoskeletal, gastrointestinal, as well as other pathologies. EMERGENCY DEPARTMENT COURSE/PROCEDURES: ECG: Indication was shortness of breath. The ECG shows a normal sinus rhythm with some baseline artifact. The rate is 71. LVH is present. There are some inverted T waves in the inferior and lateral leads. No ST elevation. No PVCs. The QTc is 404. Compared an ECG from 04 October 2021, there is no significant change. Continuous Cardiac Monitoring: An order was placed for continuous cardiac monitoring. The monitor shows a rate of 73 with normal sinus rhythm. Critical Care Note: I have personally spent 48 minutes of critical care time in the direct management of this patient. This includes bedside care, interpretation of diagnostic studies, and testing, discussion with consultants, patient, and family members, and other required patient management activities. This 48 minutes is in excess of all separately billable procedures. MEDICAL DECISION MAKING: There is a mild leukocytosis, this could be consistent with infection or just the stress of his presentation. The patient had a mild anemia but this appears baseline looking back at previous testing. There was a normal platelet count. No coagulopathy. Creatinine was slightly elevated but this is baseline. No worrisome electrolyte abnormality. Lactic acid level was not elevated making severe sepsis less likely. No concerning liver enzyme elevation. ECG shows a normal sinus rhythm, no obvious ischemia. Cardiac enzyme testing x1 is not consistent with acute cardiac injury. Chest x-ray shows bilateral infiltrates consistent with Covid pneumonia. The patient was given a 500 cc saline bolus. He was given IV Zofran, IV Decadron, a DuoNeb and IV Tylenol. The patient presents hypoxic. He has done poorly as an outpatient. He has COVID-19. He has COVID-19 pneumonia which has progressed from his previous visit. The patient is a currently resting on nasal cannula oxygen. He seems more comfortable. I spoke with the patient and his family about our findings. They understand the need for hospitalization. I spoke with the block and case maker. The on-call hospitalist was consulted. Past Med/Surg History Medical History Anemia no known hx of blood transfusion Aneurysm Dilated aortic root 4cm (per 12/02/19 cardiology note) Aortic stenosis "Moderate" Chronic back pain Chronic kidney disease, stage 3 baseline creatinine 1.6-1.8 per chart review, follows Dr. Parks Depression Hypertension Hypothyroid Osteoarthritis Parkinsons disease Follows with neurology (Dr. Hernandez) Poorly-controlled hypertension Presence of neurostimulator GPI deep brain stimulator for tremor, implanted 06/2020 (left chest), [employer], will bring remote AM DOS Spinal stenosis of lumbar region Waldenstrom macroglobulinemia diagnosed 2004- on Imbruvica Surgical History H/O hemorrhoidectomy H/O left knee surgery x3 (ACL, meniscus repairs) H/O thumb surgery right thumb History of colonoscopy Hx of brain surgery [place] [place] Family History Mother Family history of diabetes mellitus Father Family history of diabetes mellitus Unknown Liver cancer Other No family history of adverse response to anesthesia Social History Smoking Status: Never smoker Second Hand Exposure: Yes (mother smoked); Hx Alcohol Use: Yes Alcohol type: beer and wine Hx Substance Use: No Preferred Language: Bangladeshi Communication Ability: Effective Visual Impairment: Limited Hearing Ability: Normal 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 Beliefs That Will Affect Care: None marital status: Current Living Situation: Spouse Current Living Situation Comment: house current occupational status: retired Feels Safe at Home: Yes Assistive Devices: Walker Allergies Allergies Allergy/AdvReac Type Severity Reaction Status Date / Time levofloxacin Allergy Severe Kidney Verified 10/10/21 11:33 injury, ankle swelling lisinopril Allergy Severe Dyspnea Verified 10/10/21 11:33 fentanyl Allergy Intermediate Rash Verified 10/10/21 11:33 olmesartan Allergy Intermediate Rash Verified 10/10/21 11:33 tramadol Allergy Intermediate Rash Verified 10/10/21 11:33 oxycodone Allergy Mild Itching Verified 10/10/21 11:33 pramipexole AdvReac Mild GI symptoms Verified 10/10/21 11:33 topiramate AdvReac Mild GI symptoms Verified 10/10/21 11:33 Home Meds Home Medications Medication Instructions Recorded Confirmed cholecalciferol (vitamin D3) 125 5,000 units PO QAM 11/04/18 10/10/21 mcg (5,000 unit) tablet tamsulosin 0.4 mg capsule (Flomax) 0.4 mg PO HS 11/04/18 10/10/21 ibrutinib 280 mg tablet (Imbruvica) 280 mg PO QAM 09/28/19 10/10/21 metoprolol tartrate 50 mg tablet 50 mg PO DIRECTED 04/08/20 10/10/21 acyclovir 200 mg capsule 200 mg PO BID 12/05/20 10/10/21 losartan 50 mg tablet 50 mg PO PM 12/05/20 10/10/21 albuterol sulfate 2.5 mg INHALATION Q6H PRN 10/10/21 10/10/21 albuterol sulfate 90 mcg/actuation 2 puff INHALATION QID PRN 10/10/21 10/10/21 aerosol inhaler levothyroxine 112 mcg tablet 112 mcg PO DAILYBB 10/10/21 10/10/21 (Euthyrox) mometasone (Asmanex Twisthaler) 1 inh INHALATION BID 10/10/21 10/10/21 Previous Rx's Medication Instructions Recorded hydralazine 50 mg tablet 50 mg PO TID #270 tab 05/24/20 polyethylene glycol 3350 17 gram 17 g PO BID #0 ea 01/25/21 oral powder packet (Miralax) sennosides 8.6 mg-docusate sodium 2 tab PO HS #0 tab 01/25/21 50 mg tablet (Senokot-S) carbidopa 25 mg-levodopa 250 mg 1 tab PO 5XD #450 tab 08/06/21 tablet ondansetron 4 mg disintegrating 4 mg PO Q8H PRN #30 tab 10/04/21 tablet Results & Data (ED) Vital Signs Vital Signs - 24 hr 10/10/21 10:31 10/10/21 10:37 10/10/21 11:00 Temperature 37.8 C H Temperature Source Oral Pulse Rate 69 73 Pulse Rate [Apical] 73 Pulse Rate from SpO2 Sensor Pulse Rhythm Regular Pulse Rhythm [Apical] Regular Pulse Strength [Apical] Normal Respiratory Rate 22 22 Respiratory Effort / Characteristics Non-Labored Spontaneous Respiratory Depth Normal Respiratory Pattern Regular Blood Pressure 185/86 H Blood Pressure [Right Arm] 200/92 H Blood Pressure Mean 119 Blood Pressure Mean [Right Arm] 128 Blood Pressure Position [Right Arm] Sitting Pulse Oximetry 86 L 92 96 Oxygen Delivery Method Room Air Nasal Cannula Nasal Cannula Oxygen Flow Rate 5 6 Sepsis Recent Fever Within 48 Hours Yes Sepsis New/Unexplained Change in Mental Status N/A Sepsis Action Taken by Nursing No Action Required 10/10/21 11:12 10/10/21 11:20 10/10/21 11:45 Temperature Temperature Source Pulse Rate 72 70 73 Pulse Rate [Apical] Pulse Rate from SpO2 Sensor 74 70 73 Pulse Rhythm Pulse Rhythm [Apical] Pulse Strength [Apical] Respiratory Rate 21 23 23 Respiratory Effort / Characteristics Respiratory Depth Respiratory Pattern Blood Pressure Blood Pressure [Right Arm] Blood Pressure Mean Blood Pressure Mean [Right Arm] Blood Pressure Position [Right Arm] Pulse Oximetry 95 96 95 Oxygen Delivery Method Nasal Cannula Nasal Cannula Nasal Cannula Oxygen Flow Rate 5 5 5 Sepsis Recent Fever Within 48 Hours Sepsis New/Unexplained Change in Mental Status Sepsis Action Taken by Nursing 10/10/21 12:02 10/10/21 12:14 Temperature Temperature Source Pulse Rate 71 71 Pulse Rate [Apical] Pulse Rate from SpO2 Sensor 71 71 Pulse Rhythm Pulse Rhythm [Apical] Pulse Strength [Apical] Respiratory Rate 30 H 26 H Respiratory Effort / Characteristics Respiratory Depth Respiratory Pattern Blood Pressure Blood Pressure [Right Arm] Blood Pressure Mean Blood Pressure Mean [Right Arm] Blood Pressure Position [Right Arm] Pulse Oximetry 93 95 Oxygen Delivery Method Nasal Cannula Nasal Cannula Oxygen Flow Rate 5 5 Sepsis Recent Fever Within 48 Hours Sepsis New/Unexplained Change in Mental Status Sepsis Action Taken by Residential Medications Current Medication List: was personally reviewed by me Laboratory Data Attestation: I reviewed the patient's lab results. Result diagrams: 10/10/21 10:56 10/10/21 10:56 Lab Results 10/10/21 10/10/21 10/10/21 Range/Units 10:56 10:56 10:56 WBC 11.33 H (4.8-10.8) K/uL RBC 4.47 L (4.7-6.1) M/uL Hgb 12.5 L (14.0-18.0) g/dL Hct 39.0 L (42-52) % MCV 87.2 (80-100) fL MCH 28.0 (25-34) pg MCHC 32.1 (32-36) g/dL RDW Std Deviation 45.2 (36.4-46.3) fL RDW Coeff of Silvia 14.1 (11.5-14.5) % Plt Count 154 (130-400) K/uL MPV 12.3 H (7.4-10.4) fL Immature Gran % (Auto) 0.4 % Neut % (Auto) 86.7 % Lymph % (Auto) 3.5 % Stearns % (Auto) 9.2 % Eos % (Auto) 0.1 % Baso % (Auto) 0.1 % Neut # (Auto) 9.83 H (1.4-6.5) K/uL Lymph # (Auto) 0.40 L (1.2-3.4) K/uL Stearns # (Auto) 1.04 H (0.11-0.59) K/uL Eos # (Auto) 0.01 (0-0.5) K/uL Baso # (Auto) 0.01 (0-0.2) K/uL Immature Gran # (Auto) 0.04 H (0.00-0.02) K/uL PT (9.0-12.0) Seconds INR (0.9-1.1) APTT (21.0-31.0) Seconds PTT Ratio Sodium 137 (136-145) mmol/L Potassium 3.5 (3.5-5.1) mmol/L Chloride 101 (98-107) mmol/L Carbon Dioxide 29 (21-32) mmol/L Anion Gap 7.0 (3-11) BUN 27 H (7-18) mg/dl Creatinine 1.44 H (0.6-1.4) mg/dl Est Cr Clr Drug Dosing Not Reportable Est GFR ( Amer) 53.9 ml/min Est GFR (Non-Af Amer) 46.5 ml/min BUN/Creatinine Ratio 18.6 (10-20) Glucose 92 (70-99) mg/dl Lactate (0.4-2.0) mmol/L Calcium 9.0 (8.5-10.1) mg/dl Magnesium 2.3 (1.8-2.4) mg/dl Ferritin (8-388) ng/ml Total Bilirubin 1.3 H (0.2-1) mg/dl AST 19 (15-37) U/L ALT 7 L (12-78) Alkaline Phosphatase 115 (45-117) U/L Lactate Dehydrogenase (87-241) U/L Troponin I < 0.015 (0-0.045) ng/ml C-Reactive Protein 10.50 H (0-0.29) mg/dl NT-Pro-B Natriuret Pep (0-1800) pg/ml Total Protein 7.2 (6.4-8.2) gm/dl Albumin 3.1 L (3.4-5.0) gm/dl Globulin 4.1 H (2.5-4.0) gm/dl Albumin/Globulin Ratio 0.8 L (0.9-2) Procalcitonin 0.33 (0-0.5) ng/ml 10/10/21 10/10/21 10/10/21 Range/Units 10:56 11:57 11:57 WBC (4.8-10.8) K/uL RBC (4.7-6.1) M/uL Hgb (14.0-18.0) g/dL Hct (42-52) % MCV (80-100) fL MCH (25-34) pg MCHC (32-36) g/dL RDW Std Deviation (36.4-46.3) fL RDW Coeff of Silvia (11.5-14.5) % Plt Count (130-400) K/uL MPV (7.4-10.4) fL Immature Gran % (Auto) % Neut % (Auto) % Lymph % (Auto) % Stearns % (Auto) % Eos % (Auto) % Baso % (Auto) % Neut # (Auto) (1.4-6.5) K/uL Lymph # (Auto) (1.2-3.4) K/uL Stearns # (Auto) (0.11-0.59) K/uL Eos # (Auto) (0-0.5) K/uL Baso # (Auto) (0-0.2) K/uL Immature Gran # (Auto) (0.00-0.02) K/uL PT 10.5 (9.0-12.0) Seconds INR 1.0 (0.9-1.1) APTT 24.8 (21.0-31.0) Seconds PTT Ratio 0.9 Sodium (136-145) mmol/L Potassium (3.5-5.1) mmol/L Chloride (98-107) mmol/L Carbon Dioxide (21-32) mmol/L Anion Gap (3-11) BUN (7-18) mg/dl Creatinine (0.6-1.4) mg/dl Est Cr Clr Drug Dosing Est GFR ( Amer) ml/min Est GFR (Non-Af Amer) ml/min BUN/Creatinine Ratio (10-20) Glucose (70-99) mg/dl Lactate 1.1 (0.4-2.0) mmol/L Calcium (8.5-10.1) mg/dl Magnesium (1.8-2.4) mg/dl Ferritin 278.8 (8-388) ng/ml Total Bilirubin (0.2-1) mg/dl AST (15-37) U/L ALT (12-78) Alkaline Phosphatase (45-117) U/L Lactate Dehydrogenase (87-241) U/L Troponin I (0-0.045) ng/ml C-Reactive Protein (0-0.29) mg/dl NT-Pro-B Natriuret Pep 221 (0-1800) pg/ml Total Protein (6.4-8.2) gm/dl Albumin (3.4-5.0) gm/dl Globulin (2.5-4.0) gm/dl Albumin/Globulin Ratio (0.9-2) Procalcitonin (0-0.5) ng/ml 10/10/21 Range/Units 11:57 WBC (4.8-10.8) K/uL RBC (4.7-6.1) M/uL Hgb (14.0-18.0) g/dL Hct (42-52) % MCV (80-100) fL MCH (25-34) pg MCHC (32-36) g/dL RDW Std Deviation (36.4-46.3) fL RDW Coeff of Silvia (11.5-14.5) % Plt Count (130-400) K/uL MPV (7.4-10.4) fL Immature Gran % (Auto) % Neut % (Auto) % Lymph % (Auto) % Stearns % (Auto) % Eos % (Auto) % Baso % (Auto) % Neut # (Auto) (1.4-6.5) K/uL Lymph # (Auto) (1.2-3.4) K/uL Stearns # (Auto) (0.11-0.59) K/uL Eos # (Auto) (0-0.5) K/uL Baso # (Auto) (0-0.2) K/uL Immature Gran # (Auto) (0.00-0.02) K/uL PT (9.0-12.0) Seconds INR (0.9-1.1) APTT (21.0-31.0) Seconds PTT Ratio Sodium (136-145) mmol/L Potassium (3.5-5.1) mmol/L Chloride (98-107) mmol/L Carbon Dioxide (21-32) mmol/L Anion Gap (3-11) BUN (7-18) mg/dl Creatinine (0.6-1.4) mg/dl Est Cr Clr Drug Dosing Est GFR ( Amer) ml/min Est GFR (Non-Af Amer) ml/min BUN/Creatinine Ratio (10-20) Glucose (70-99) mg/dl Lactate (0.4-2.0) mmol/L Calcium (8.5-10.1) mg/dl Magnesium (1.8-2.4) mg/dl Ferritin (8-388) ng/ml Total Bilirubin (0.2-1) mg/dl AST (15-37) U/L ALT (12-78) Alkaline Phosphatase (45-117) U/L Lactate Dehydrogenase 372 H (87-241) U/L Troponin I (0-0.045) ng/ml C-Reactive Protein (0-0.29) mg/dl NT-Pro-B Natriuret Pep (0-1800) pg/ml Total Protein (6.4-8.2) gm/dl Albumin (3.4-5.0) gm/dl Globulin (2.5-4.0) gm/dl Albumin/Globulin Ratio (0.9-2) Procalcitonin (0-0.5) ng/ml Administered Medications Discontinued Medications Acetaminophen (Acetaminophen 1000 Mg/100 Ml Iv) 1,000 mg IV NOW STA Stop: 10/10/21 10:51 Last Admin: 10/10/21 11:53 Dose: 1,000 mg Documented by: [id number] Albuterol (Albut/Ipratrop 3mg/0.5mg Neb 3 Ml Vial) 3 ml INH NOW STA Stop: 10/10/21 10:51 Last Admin: 10/10/21 11:53 Dose: 3 ml Documented by: [id number] Dexamethasone Sodium Phosphate (DexamethasonePf 10 Mg/Ml Vial) 6 mg IV NOW ONE Stop: 10/10/21 10:51 Last Admin: 10/10/21 11:52 Dose: 10 mg Documented by: [id number] Sodium Chloride (Nss 1000ml) 500 mls @ 999 mls/hr IV .Q31M ONE Stop: 10/10/21 11:20 Last Infusion: 10/10/21 12:36 Dose: 0 mls/hr Documented by: [id number] Admin: 10/10/21 11:52 Dose: 999 mls/hr Documented by: [id number] Ondansetron HCl (Ondansetron Inj 2 Mg/Ml 2 Ml Vial) 4 mg IV NOW STA Stop: 10/10/21 10:51 Last Admin: 10/10/21 11:52 Dose: 4 mg Documented by: [id number] Imaging Data Radiologist's Impression: Chest X-Ray 10/10/21 10:51 XR chest 1V portable HISTORY: Shortness of breath. COMPARISON: Chest 10/04/2021. FINDINGS: No pneumothorax. No pleural effusions. Left-sided neurostimulator device is partially imaged on this study. The heart remains mildly enlarged. Patchy bilateral airspace opacities within the mid to lower lung zones have progressed. IMPRESSION: Interval progression of the patchy hazy bilateral airspace opacities within the mid to lower lung zones likely representing a viral pneumonia. ACT 112: Negative or not required by law. Electronically signed by: Rudy Desouza M.D. 10/10/2021 11:13 AM Discharge Plan Visit Data Chief Complaint: Shortness of Breath/Dyspnea Stated Complaint: HAVING TROUBLE BREATHING,LOST WEIGHT,COUGHING ED Provider: Hi Valdovinos Discharge Problem: Hypoxia, SOB (shortness of breath), Pneumonia, COVID-19 Patient Disposition: Admitted As Inpatient Condition: Fair Forms Stand Alone Forms: [facility] [employer] Prescriptions Prescriptions: No Action cholecalciferol (vitamin D3) 5,000 unit tablet 5,000 units PO QAM RF: 0 tamsulosin [Flomax] 0.4 mg capsule 0.4 mg PO HS RF: 0 hydralazine 50 mg tablet 50 mg PO TID Qty: 270 RF: 3 metoprolol tartrate 50 mg tablet 50 mg PO DIRECTED RF: 0 carbidopa-levodopa 25-250 mg tablet 1 tab PO 5XD Qty: 450 RF: 3 Imbruvica 280 mg Tablet 280 mg PO QAM RF: 0 acyclovir 200 mg Capsule 200 mg PO BID RF: 0 losartan 50 mg tablet 50 mg PO PM RF: 0 levothyroxine [Euthyrox] 112 mcg tablet 112 mcg PO DAILYBB RF: 0 albuterol sulfate 2.5 mg /3 mL (0.083 %) solution for nebulization 2.5 mg inhalation Q6H PRN (Reason: Cough) RF: 0 albuterol sulfate 90 mcg/actuation HFA aerosol inhaler 2 puff INHALATION QID PRN (Reason: Wheezing) RF: 0 Asmanex Twisthaler 220 mcg/ actuation (60) aerosol powdr breath activated 1 inh INHALATION BID RF: 0 polyethylene glycol 3350 [Miralax] 17 gram Powder In Packet 17 g PO BID Qty: 0 RF: 0 sennosides-docusate sodium [Senokot-S] 8.6-50 mg Tablet 2 tab PO HS Qty: 0 RF: 0 ondansetron 4 mg tablet,disintegrating 4 mg PO Q8H PRN (Reason: nausea and vomiting) Qty: 30 RF: 0 Referrals Referrals: Tho Dickerson [Primary Care Provider] -
[2021-10-10 11:05] LABS: Basophils # (auto) 0.01 K/uL (0-0.2); Basophils % (auto) 0.1 %; Eosinophils # (auto) 0.01 K/uL (0-0.5); Eosinophils % (auto) 0.1 %; Hemoglobin 12.5 g/dL (14.0-18.0); Immature Granulocytes # (auto) 0.04 K/uL (0.00-0.02); Immature Granulocytes % (auto) 0.4 %; Lymphocytes % (auto) 3.5 %; Mean Corpuscular Hgb Conc 32.1 g/dL (32-36); Mean Corpuscular Volume 87.2 fL (80-100); Mean Platelet Volume 12.3 fL (7.4-10.4); Monocytes # (auto) 1.04 K/uL (0.11-0.59); Monocytes % (auto) 9.2 %; Neutrophils # (auto) 9.83 K/uL (1.4-6.5); Neutrophils % (auto) 86.7 %; Platelet Count 154 K/uL (130-400); RDW Coefficient of Variation 14.1 % (11.5-14.5); RDW Standard Deviation 45.2 fL (36.4-46.3); Red Blood Count 4.47 M/uL (4.7-6.1); White Blood Count 11.33 K/uL (4.8-10.8)
--- NOTE | 2021-10-10 11:14 | XRay Report ---
XR chest 1V portable HISTORY: Shortness of breath. COMPARISON: Chest 10/04/2021. FINDINGS: No pneumothorax. No pleural effusions. Left-sided neurostimulator device is partially image d on this study. The heart remains mildly enlarged. Patchy bilateral airspace opacities within the mi d to lower lung zones have progressed. IMPRESSION: Interval progression of the patchy hazy bilateral airspace opacities within the mid to lower lung zon es likely representing a viral pneumonia. ACT 112: Negative or not required by law. Electronically signed by: Rudy Desouza M.D. 10/10/2021 11:13 AM
[2021-10-10 11:16] LABS: Partial Thromboplastin Ratio 0.9; Partial Thromboplastin Time 24.8 Seconds (21.0-31.0); Prothrombin Time 10.5 Seconds (9.0-12.0)
[2021-10-10 11:23] LABS: Alanine Aminotransferase 7 (12-78); Albumin Level 3.1 gm/dl (3.4-5.0); Aspartate Aminotransferase 19 U/L (15-37); BUN Creatinine Ratio 18.6 (10-20); Blood Urea Nitrogen 27 mg/dl (7-18); Carbon Dioxide 29 mmol/L (21-32); Chloride 101 mmol/L (98-107); Est GFR (African American) 53.9 ml/min; Est GFR (Non-African American) 46.5 ml/min; Glucose 92 mg/dl (70-99); Magnesium 2.3 mg/dl (1.8-2.4); Potassium 3.5 mmol/L (3.5-5.1); Sodium 137 mmol/L (136-145)
[2021-10-10 11:28] LABS: Albumin Globulin Ratio 0.8 (0.9-2); Alkaline Phosphatase 115 U/L (45-117); Bilirubin,Total 1.3 mg/dl (0.2-1); Globulin 4.1 gm/dl (2.5-4.0); Total Protein 7.2 gm/dl (6.4-8.2); Troponin I < 0.015 ng/ml (0-0.045)
[2021-10-10] MEDS ORDERED: dexAMETHasone 4 MG in SYRINGE 0 ML IV ONE ×2 (11:40→16:00)
--- NOTE | 2021-10-10 12:22 | History & Physical Report ---
Date of Service October 10, 2021 Assessment & Plan (1) COVID: Plan: COVID 19 infection- vaccinated x2 no booster - approx day of illness 14-16 - Decadron 10mg IV daily - Continue his Imbruvica- Haemetology consulted- appreciate assistance - CRP 10 follow in am - Oxyngen support for SPO2 88-92%- (2) Waldenstrom macroglobulinemia: (3) Hypertension: (4) Chronic kidney disease, stage 3: (5) Lumbar facet joint syndrome: (6) Parkinson disease: (7) Hypothyroid: History of Present Illness Primary Care Provider: Tho Dickerson 76 YOM with past medical history of: Waldenstrom Macroglobulinemia (on Imbruvica, recently missed IVIG this week), HTN, moderate , Parkinson's disease- with deep brain stimulator, Chronic back pain, BPH, CKD. Patient comes in today for increase in dyspnea and cough. The patient had a COVID test performed and was positive. The patient had received his 2 vaccines without booster to this time. Patient originally reported increase in fatigue with cough ~2 weeks ago, him and his took a home COVID test on that was positive. Patient endorses today that he just feels more fatigued, lost his appetite as well as his sense of taste and smell. He feels dyspneic when he is up and moving. He had an SPO2 on room air of 88% and is currently on 6LNC oxygneating well and appears comfortable with his breathing. The patient has denied any chest pain or dizziness. He follows with Neurology for his Parkinson's disease and had his Carbidopa/levadopa increased in July to 5x daily, he and his enodrse no change in his symptoms and continues to have wearing off and freezing with no improvment in his tremor noted. For his WM macroglobulinemia the patient is on Imbruvica he is followed locally by Dr. Manzo where he also receives IVIG, he is on prophylaxis acyclovir- As above patient was to get IVIG this week and has missed this dose. As for his Imbruvica- this will preclude him from receiving Baricitinib and literature review with "The Consensus Statement on WM; patient's during the COVID 19 pandemic"- April 2020 that Imburvica may be continued as he is in the later phase of his illness. Will consult Haemetology for his Imbruvica as well as +/- benefit for IVIG at this time. Will increase patient steroid to 10mg IV daily. Continue further supportive Allergies Allergy/AdvReac Type Severity Reaction Status Date / Time levofloxacin Allergy Severe Kidney Verified 10/10/21 11:33 injury, ankle swelling lisinopril Allergy Severe Dyspnea Verified 10/10/21 11:33 fentanyl Allergy Intermediate Rash Verified 10/10/21 11:33 olmesartan Allergy Intermediate Rash Verified 10/10/21 11:33 tramadol Allergy Intermediate Rash Verified 10/10/21 11:33 oxycodone Allergy Mild Itching Verified 10/10/21 11:33 pramipexole AdvReac Mild GI symptoms Verified 10/10/21 11:33 topiramate AdvReac Mild GI symptoms Verified 10/10/21 11:33 Home Medications Medication Instructions Recorded Confirmed Type cholecalciferol (vitamin D3) 125 5,000 units PO QAM 11/04/18 10/10/21 History mcg (5,000 unit) tablet tamsulosin 0.4 mg capsule (Flomax) 0.4 mg PO HS 11/04/18 10/10/21 History ibrutinib 280 mg tablet (Imbruvica) 280 mg PO QAM 09/28/19 10/10/21 History metoprolol tartrate 50 mg tablet 50 mg PO DIRECTED 04/08/20 10/10/21 History hydralazine 50 mg tablet 50 mg PO TID #270 tab 05/24/20 10/10/21 Rx acyclovir 200 mg capsule 200 mg PO BID 12/05/20 10/10/21 History losartan 50 mg tablet 50 mg PO PM 12/05/20 10/10/21 History polyethylene glycol 3350 17 gram 17 g PO BID #0 ea 01/25/21 10/10/21 Rx oral powder packet (Miralax) sennosides 8.6 mg-docusate sodium 2 tab PO HS #0 tab 01/25/21 10/10/21 Rx 50 mg tablet (Senokot-S) carbidopa 25 mg-levodopa 250 mg 1 tab PO 5XD #450 tab 08/06/21 10/10/21 Rx tablet ondansetron 4 mg disintegrating 4 mg PO Q8H PRN #30 tab 10/04/21 10/10/21 Rx tablet albuterol sulfate 2.5 mg INHALATION Q6H PRN 10/10/21 10/10/21 History albuterol sulfate 90 mcg/actuation 2 puff INHALATION QID PRN 10/10/21 10/10/21 History aerosol inhaler levothyroxine 112 mcg tablet 112 mcg PO DAILYBB 10/10/21 10/10/21 History (Euthyrox) mometasone (Asmanex Twisthaler) 1 inh INHALATION BID 10/10/21 10/10/21 History Past Med/Surg History Medical History Anemia no known hx of blood transfusion Aneurysm Dilated aortic root 4cm (per 12/02/19 cardiology note) Aortic stenosis "Moderate" Chronic back pain Chronic kidney disease, stage 3 baseline creatinine 1.6-1.8 per chart review, follows Dr. Parks Depression Hypertension Hypothyroid Osteoarthritis Parkinsons disease Follows with neurology (Dr. Hernandez) Poorly-controlled hypertension Presence of neurostimulator GPI deep brain stimulator for tremor, implanted 06/2020 (left chest), [employer], will bring remote AM DOS Spinal stenosis of lumbar region Waldenstrom macroglobulinemia diagnosed 2004- on Imbruvica Surgical History H/O hemorrhoidectomy H/O left knee surgery x3 (ACL, meniscus repairs) H/O thumb surgery right thumb History of colonoscopy Hx of brain surgery [place] [place] Family History Mother Family history of diabetes mellitus Father Family history of diabetes mellitus Unknown Liver cancer Other No family history of adverse response to anesthesia Social History Smoking Status: Never smoker Second Hand Exposure: Yes (mother smoked); Hx Alcohol Use: Yes Alcohol type: beer and wine Hx Substance Use: No Preferred Language: Faroese Communication Ability: Effective Visual Impairment: Limited Hearing Ability: Normal Online Activist Required: No Beliefs That Will Affect Care: None marital status: Current Living Situation: Spouse Current Living Situation Comment: house current occupational status: retired Feels Safe at Home: Yes Assistive Devices: Walker Review of Systems Review of Systems: REVIEW OF SYSTEMS: Constitutional: (+)fever, sweats or chills Eyes: No diplopia, no worsening or blurred vision ENT: (+) bilateral hearing aid, no trouble swallowing Respiratory: (+) cough, sputum, dyspnea at rest or on exertion Cardiovascular: No chest pain, tightness or palpitations Abdomen: (+) loss of appetite, constipation, No pain, nausea, vomiting, diarrhea Musculoskeletal: No joint pain, calf pain, swelling Neurologic: (+) chronic back pain, No weakness, numbness/tingling, or balance problems Psychiatric: No anxiety or depression Skin: No rash or itch Physical Exam 2 Physical Exam: PHYSICAL EXAM: General: awake, alert, no apparent distress Head: Normocephalic, atraumatic ENT: PERRL, EOMI, no pharyngeal exudate, tremor Neuro: AAO x 3, speech clear and appropriate, strength intact bilaterally 5/5, slow response noted with increasing tremor when performing tasks, Chest: equal rise and fall of the chest, no accessory muscle use, no heaves or thrills, non productive cough, scattered rhonchi throughout Cardiac: Regular rate and rhythm, telemetry reviewed, skin warm dry, cap refill <3 seconds, peripheral pusles +2 no JVD, no murmur, no JVD, no edema GI: NABS x 4 quadrants, soft, nontender to palpation, no rebound, guarding or tenderness : Spontaneously voiding, no pain, no CVA tenderness, Extremities: Normal inspection, no peripheral edema or erythema, calfs nontender to palpation Psych: Normal mood and affect Skin: no rash or erythema Results & Data Results & Data ([facility]) Vital Signs (Past 12 Hours) Vital Signs Temp Pulse Pulse Resp BP BP Pulse Ox 10/10/21 12:14 71 26 H 95 10/10/21 12:02 71 30 H 93 10/10/21 11:45 73 23 95 10/10/21 11:20 70 23 96 10/10/21 11:12 72 21 95 10/10/21 11:00 73 73 22 200/92 H 96 10/10/21 10:37 92 10/10/21 10:31 37.8 C H 69 22 185/86 H 86 L Laboratory Results Abnormal lab results 10/10/21 10/10/21 Range/Units 10:56 10:56 WBC 11.33 H (4.8-10.8) K/uL RBC 4.47 L (4.7-6.1) M/uL Hgb 12.5 L (14.0-18.0) g/dL Hct 39.0 L (42-52) % MPV 12.3 H (7.4-10.4) fL Neut # (Auto) 9.83 H (1.4-6.5) K/uL Lymph # (Auto) 0.40 L (1.2-3.4) K/uL Wirt # (Auto) 1.04 H (0.11-0.59) K/uL Immature Gran # (Auto) 0.04 H (0.00-0.02) K/uL BUN 27 H (7-18) mg/dl Creatinine 1.44 H (0.6-1.4) mg/dl Total Bilirubin 1.3 H (0.2-1) mg/dl ALT 7 L (12-78) C-Reactive Protein 10.50 H (0-0.29) mg/dl Albumin 3.1 L (3.4-5.0) gm/dl Globulin 4.1 H (2.5-4.0) gm/dl Albumin/Globulin Ratio 0.8 L (0.9-2) Diagnostic Findings Chest X-Ray 10/10/21 10:51 XR chest 1V portable HISTORY: Shortness of breath. COMPARISON: Chest 10/04/2021. FINDINGS: No pneumothorax. No pleural effusions. Left-sided neurostimulator device is partially imaged on this study. The heart remains mildly enlarged. Patchy bilateral airspace opacities within the mid to lower lung zones have progressed. IMPRESSION: Interval progression of the patchy hazy bilateral airspace opacities within the mid to lower lung zones likely representing a viral pneumonia. ACT 112: Negative or not required by law. Electronically signed by: Rudy Desouza M.D. 10/10/2021 11:13 AM Medications Administered Discontinued Medications Acetaminophen (Acetaminophen 1000 Mg/100 Ml Iv) 1,000 mg IV NOW STA Stop: 10/10/21 10:51 Last Admin: 10/10/21 11:53 Dose: 1,000 mg Documented by: [id number] Albuterol (Albut/Ipratrop 3mg/0.5mg Neb 3 Ml Vial) 3 ml INH NOW STA Stop: 10/10/21 10:51 Last Admin: 10/10/21 11:53 Dose: 3 ml Documented by: [id number] Dexamethasone Sodium Phosphate (DexamethasonePf 10 Mg/Ml Vial) 6 mg IV NOW ONE Stop: 10/10/21 10:51 Last Admin: 10/10/21 11:52 Dose: 10 mg Documented by: [id number] Sodium Chloride (Nss 1000ml) 500 mls @ 999 mls/hr IV .Q31M ONE Stop: 10/10/21 11:20 Last Infusion: 10/10/21 12:36 Dose: 0 mls/hr Documented by: [id number] Admin: 10/10/21 11:52 Dose: 999 mls/hr Documented by: [id number] Ondansetron HCl (Ondansetron Inj 2 Mg/Ml 2 Ml Vial) 4 mg IV NOW STA Stop: 10/10/21 10:51 Last Admin: 10/10/21 11:52 Dose: 4 mg Documented by: [id number] Home Medications cholecalciferol (vitamin D3) 125 mcg (5,000 unit) tablet 5,000 units PO QAM 11/04/18 [History Confirmed 10/10/21] tamsulosin 0.4 mg capsule (Flomax) 0.4 mg PO HS 11/04/18 [History Confirmed 10/10/21] ibrutinib 280 mg tablet (Imbruvica) 280 mg PO QAM 09/28/19 [History Confirmed 10/10/21] metoprolol tartrate 50 mg tablet 50 mg PO DIRECTED 04/08/20 [History Confirmed 10/10/21] hydralazine 50 mg tablet 50 mg PO TID #270 tab 05/24/20 [Rx Confirmed 10/10/21] acyclovir 200 mg capsule 200 mg PO BID 12/05/20 [History Confirmed 10/10/21] losartan 50 mg tablet 50 mg PO PM 12/05/20 [History Confirmed 10/10/21] polyethylene glycol 3350 17 gram oral powder packet (Miralax) 17 g PO BID #0 ea 01/25/21 [Rx Confirmed 10/10/21] sennosides 8.6 mg-docusate sodium 50 mg tablet (Senokot-S) 2 tab PO HS #0 tab 01/25/21 [Rx Confirmed 10/10/21] carbidopa 25 mg-levodopa 250 mg tablet 1 tab PO 5XD #450 tab 08/06/21 [Rx Confirmed 10/10/21] ondansetron 4 mg disintegrating tablet 4 mg PO Q8H PRN #30 tab 10/04/21 [Rx Confirmed 10/10/21] albuterol sulfate 2.5 mg INHALATION Q6H PRN 10/10/21 [History Confirmed 10/10/21] albuterol sulfate 90 mcg/actuation aerosol inhaler 2 puff INHALATION QID PRN 10/10/21 [History Confirmed 10/10/21] levothyroxine 112 mcg tablet (Euthyrox) 112 mcg PO DAILYBB 10/10/21 [History Confirmed 10/10/21] mometasone (Asmanex Twisthaler) 1 inh INHALATION BID 10/10/21 [History Confirmed 10/10/21] Active Medications Hydralazine HCl (Hydralazine Tab 50 Mg Tab) 50 mg PO ONE ONE Stop: 10/10/21 12:46 Hydralazine HCl (Hydralazine Tab 50 Mg Tab) 50 mg PO ONE ONE Stop: 10/10/21 12:42 ECG Additional Comments: Normal sinus rhythm Left axis deviation Left ventricular hypertrophy with repolarization abnormality Abnormal ECG When compared with ECG of 04-OCT-2021 10:03, Significant changes have occurred Code Status & VTE Plan Code Status CODE: FULL VTE: SCDS, Lovenox 30 mg Subq q12 VTE Prophylaxis Plan VTE Prophylaxis will be ordered: Yes Supervising Physician Co-Signing Physician Notes Srikanth is a 76-year-old male with a past medical history of Parkinson's, CKD, hypertension, hypothyroidism, and [place] Valentín's macroglobulinemia treated with intermittent IVIG and daily Imbruvica who presents to the emergency department with fever, cough, shortness of breath, poor p.o. intake after testing positive for Covid 7 days ago. Symptom onset was about 1 week before that, rough onset of symptoms approximately 09/26/2021. Patient is vaccinated against COVID-19. HEENT: Atraumatic, normocephalic. BUDDY. Visual acuity and hearing grossly intact. Pulm: Diminished, crackles in the bases. Symmetrical chest rise. No increased work of breathing. No respiratory distress. Cardiac: RRR, -mrg. Radial pulses intact and symmetrical. Abdominal: Nontender, nondistended, soft. BS present. Ext: Warm/Dry. Resting tremor in hands bilaterally. No LE edema or calf t enderness. Acute hypoxic respiratory failure 2/2 COVID-19 pneumonia, background immunosuppression with WM Vaccinated x2 Symptom onset proximately 09/26/2021 Likely moving into posttrial inflammatory phase of illness, although patient at risk for prolonged viremia with underlying immune suppression Literature search regarding BTK inhibitors with COVID-19 performed, articles independently reviewed as below At this time we will continue his Imbruvica, hematology/oncology consulted for further Remdesivir/baricitinib contraindicated in the setting of immunosuppressant use Continue dexamethasone, increased dose x10 days Requiring 5 L nasal cannula, SPO2 sat about 95% at time of hospitalist evaluation CRP 10.5 Creatinine 1.44 on admission, baseline approximately 1.41.6 Trace leukocytosis to 11.33, and LR 4.5, pro-Usama normal, CXR consistent with viral pneumonia without suggestion for superimposed secondary pneumonia Defer additional antibiotics at this time CTchest noncontrast pending given late presentation and high risk Consensus Statement on the Management of Waldenstrm Macroglobulinemia Patients During the COVID-19 Pandemic reviewed ([facility] [id number]; doi:1 [id number]). Per hematology association review: For more symptomatic patients, the dilemma is between a traditional approach to cease anti-cancer treatment, and of continuing treatment. This is especially pronounced for BTK inhibitors because of the potential immunosuppressive effect reported with ibrutinib.This may be of potential danger in mounting a response to COVID-19 but may be of benefit in reducing late and severe immune-mediated complications. There are preliminary data on the anti-inflammatory effects of Ibrutinib in murine lung,12 effect on suppression of inflammatory cytokines such as TNF, IL2RA, and CXCL13,20 and down regulatory effects on T cells and macrophages.21 A recent paper has shown that use of Ibrutinib in a small number of WM patients is associated with a low rate of COVID-19 related pulmonary complications. There is the additional risk of developing IgM flare and potentially worsening the clinical situation because of a cytokine storm if BTK inhibitors are withheld. Some limited small and studies suggesting benefit of BTK in patients with WM with full dose BTK inhibitors in COVID19 (doi: [id number]/[id number]) Treatment of COVID-19 should be per existing protocols otherwise WM: Hematology consulted. Continuing Imbruvica as above. Acyclovir continued. HTN: Losartan continued, renal function at baseline. Continue metoprolol daily, hydralazine 3 times daily Hypothyroidism: Continue Synthroid Parkinsonism: Continue carbidopalevodopa. Brain stimulator in place. DVT PPx: COVID Lovenox PG Care Time/CCT Total # of Minutes Spent Total Time Spent with Patient: Total time spent is greater than 50% in coordination of care (as documented) at patient's floor/unit and/or counseling patient: Coding Level of Care Code 76976 Initial Inpt Care Lvl 3 Diagnoses COVID U07.1 Waldenstrom macroglobulinemia C88.0 Hypertension I10 Hypertension type: essential hypertension Chronic kidney disease, stage 3 N18.3 Lumbar facet joint syndrome M47.816 Parkinson disease G20 Hypothyroid E03.9 Hypothyroidism type: unspecified (1) Hypothyroid Hypothyroidism type: unspecified Qualified Code(s): E03.9 - Hypothyroidism, unspecified (2) Hypertension Hypertension type: essential hypertension Qualified Code(s): I10 - Essential (primary) hypertension
[2021-10-10] MEDS ORDERED: hydrALAZINE TAB 50 MG TAB PO ONE ×2 (12:41→12:45)
[2021-10-10 12:45] LABS: Ferritin 278.8 ng/ml (8-388)
[2021-10-10] MEDS ORDERED: hydrALAZINE HCL 25 MG TAB ONE (13:17)
[2021-10-10 13:19] LABS: Influenza A virus by PCR Negative (Neg); Influenza B virus by PCR Negative (Neg); RSV by PCR Negative (Neg)
[2021-10-10 13:36] LABS: SARS CoV2 RNA(COVID-19) InHosp POSITIVE (Negative)
--- NOTE | 2021-10-10 13:46 | CT Scan Report ---
CT chest diagnostic wo con CT DOSE: 234.65 mGy.cm HISTORY: Cough. Shortness of breath. COVID 19 evaluate inflammation and opacities TECHNIQUE: Multiaxial CT images of the chest were performed without contrast. A dose lowering techni que was utilized adhering to the principles of ALARA. COMPARISON: Chest 10/10/2021. Chest CT 01/01/2019. FINDINGS: No pneumothorax. No pleural or pericardial effusions. The central airways are patent. There is respiratory motion artifact. Patchy groundglass airspace opacities most pronounced within the jeanna ateral mid to lower lung zones consistent with a moderate to severe multifocal pneumonia. This is lik aida secondary to the patient's known bilateral process. Left chest wall neurostimulator device is not ed. No fractures within the visualized osseous structures. Limited views of the upper abdomen demonst rate a normal liver and spleen. Normal esophagus. The heart is top normal in size. No pericardial eff usion. Mild aneurysmal dilatation of the ascending thoracic aorta measuring up to 4 cm in diameter. M oderate calcified plaque within the coronary arteries. Multiple mildly enlarged para-aortic lymph nod es are again noted. These have slightly improved in the interval. Dominant lymph node measures 1.8 cm and is best seen on image 188. There are few borderline enlarged mediastinal lymph nodes. There is a lso mild right hilar lymphadenopathy. IMPRESSION: 1. Moderate to severe multifocal bilateral airspace opacities likely representing a viral pneumonia. 2. Mild mediastinal lymphadenopathy. This has slightly improved. 3. Mild right hilar lymphadenopathy is also noted. This could be reactive to the suspected pneumonia. 4. Additional findings as described above. ACT 112: Negative or not required by law. Electronically signed by: Rudy Desouza M.D. 10/10/2021 1:44 PM
[2021-10-10 13:47] LABS: Fibrinogen 599 mg/dl (184-400)
[2021-10-10] MEDS ORDERED: ALBUTEROL 0.083% NEBU SOLN 3 ML VIAL INH PRN (15:19)
[2021-10-10] MEDS ORDERED: FUROSEMIDE INJ 20 MG/2 ML VIAL IV ONE (15:45)
[2021-10-10] MEDS ORDERED: PATIENT'S HEIGHT AND/OR WEIGHT NEEDED SCH (15:45)
[2021-10-10] MEDS ORDERED: DEXAMETHASONE SOD INJ 4 MG/ML VIAL ONE (16:00)
[2021-10-10] MEDS ORDERED: FUROSEMIDE 40 MG/4 ML VIAL IV ONE (16:00)
[2021-10-10] MEDS: ALBUTEROL HFA 8 GM INHALER INH SCH ×2 (16:09→20:06)
[2021-10-10] MEDS: hydrALAZINE TAB 50 MG TAB PO SCH ×2 (16:09→21:25)
[2021-10-10] MEDS: ONDANSETRON 4 MG OD TAB PO PRN (16:15)
[2021-10-10] MEDS: CARBIDOPA/LEVODOPA 25-250 1 EA TAB PO SCH ×2 (18:26→20:06)
[2021-10-10] MEDS: PANTOprazole 40 MG TAB PO SCH (18:26)
--- NOTE | 2021-10-10 21:19 | Consultation Report ---
ONCOLOGY CONSULTATION DATE OF SERVICE: 10/10/2021 REASON FOR CONSULT: Waldenstrom's macroglobulinemia. He missed his IVIG and admitted for COVID-19 infection. HISTORY OF PRESENT ILLNESS: The patient is a 76-year-old gentleman who is known to [facility] under the care of Dr. Dobson for Waldenstrom's macroglobulinemia. The patient presented with respiratory symptoms after recently being diagnosed with COVID-19 infection. Regarding his hematologic history, he was diagnosed with Waldenstrom's macroglobulinemia several years ago, for which he had initially been treated with bendamustine/rituximab, but unfortunately, treatment could not be completed due to toxicities. He was subsequently switched to ibrutinib, which he has remained on since then and is currently on 280 mg p.o. daily. He also has a history of hypogammaglobulinemia, for which he receives IVIG monthly. Unfortunately, the patient missed his most recent IVIG infusion due to COVID-19 infection. He presented to the ED with complaints of fatigue and shortness of breath. Oxygen saturation on room air while in the ED was noted to be 88% and was placed on 6L IN02. Hematology was consulted due to recently missed IVIG. PAST MEDICAL HISTORY: Parkinson's disease, depression, hypertension, hypothyroidism, osteoarthritis, Waldenstrom's macroglobulinemia, CKD stage III. PAST SURGICAL HISTORY: Hemorrhoidectomy, left knee surgery, history of brain surgery, status post deep brain stimulator. MEDICATIONS PRIOR TO ADMISSION: Ibrutinib 280 mg p.o. daily, metoprolol 50 mg p.o. daily, hydralazine 50 mg p.o. t.i.d., acyclovir 200 mg p.o. b.i.d., losartan 50 mg p.o. daily, carbidopa/levodopa 1 tablet p.o. 5 times a day, Zofran 4 mg p.o. q.8 hours as needed. ALLERGIES: LEVOFLOXACIN, LISINOPRIL, FENTANYL,TRAMADOL, OXYCODONE, PRAMIPEXOLE, TOPIRAMATE. SOCIAL HISTORY: Drinks alcohol occasionally. Denies smoking or illicit drug use. FAMILY HISTORY: Noncontributory. REVIEW OF SYSTEMS: Not obtained due to COVID-19 infection. LABORATORY DATA: CBC significant for white count of 11.33, hemoglobin of 12.5, hematocrit of 39.0, platelet count of 154,000. Chemistry unremarkable with BUN of 27 and creatinine of 1.44. IMAGING STUDIES: CT chest obtained on 10/10/2021 revealed, impression: 1. Moderate to severe multifocal bilateral airspace opacities, likely representing a viral pneumonia. 2. Mild mediastinal lymphadenopathy, slightly improved. 3. Mild right hilar lymphadenopathy, which could be reactive due to suspected pneumonia. IMPRESSION: 1. Waldenstrom's macroglobulinemia, on ibrutinib. 2. COVID-19 infection. 3. Hypogammaglobulinemia. 4. Parkinson's disease. PLAN: A 76-year-old gentleman recently diagnosed with COVID-19 pneumonia, who was admitted with fatigue, shortness of breath and hypoxia. He also has a history of Waldenstrom's macroglobulinemia, for which he has been maintained on ibrutinib with significant improvement in IgM levels as well as lymphadenopathy. Given the patient's unique situation in which he had received chemotherapy in the past with significant side effects and now seems to be responding to ibrutinib, I will be reluctant to hold ibrutinib at this time, most especially given risk for IgM flare. As such, we would recommend continuing ibrutinib at this time while treating him for COVID-19 pneumonia. Would recommend checking immunoglobulin levels including IgG and IgM. If IgG is less than 400, recommend giving IVIG 33 grams IV x1 dose to reduce risk of infection. Thank you for this consult. Hematology will continue following the patient while in the hospital. He will continue to follow up with Dr. Dobson upon discharge from hospital. Please feel free to call if you have any further questions. Job ID: [id number] [facility]
[2021-10-10] MEDS: ACYCLOVIR 200 MG CAP PO SCH (21:24)
[2021-10-10] MEDS: LOSARTAN POTASSIUM 50 MG TAB PO SCH (21:24)
[2021-10-10] MEDS: METOPROLOL TARTRATE 100 MG TAB PO SCH (21:25)
[2021-10-10] MEDS: TAMSULOSIN HCL 0.4 MG CAP PO SCH (21:25)
[2021-10-10] MEDS: DOCUSATE SODIUM/SENNA 50/8.6MG TAB PO SCH (21:26)
[2021-10-10] MEDS: POLYETHYLENE (MIRALAX) 17 GM PACK PO SCH (21:27)
[2021-10-10] MEDS: ENOXAPARIN INJ 40 MG/0.4 ML SYR SQ SCH (21:52)
[2021-10-11] MEDS: CARBIDOPA/LEVODOPA 25-250 1 EA TAB PO SCH ×6 (00:09→22:56)
[2021-10-11] MEDS: LEVOTHYROXINE SODIUM 112 MCG TABLET PO SCH (05:55)
[2021-10-11] MEDS: ACYCLOVIR 200 MG CAP PO SCH ×2 (08:00→19:32)
[2021-10-11] MEDS: ALBUTEROL HFA 8 GM INHALER INH SCH ×4 (08:00→19:30)
[2021-10-11] MEDS: hydrALAZINE TAB 50 MG TAB PO SCH ×3 (08:01→19:31)
[2021-10-11] MEDS: ENOXAPARIN INJ 40 MG/0.4 ML SYR SQ SCH ×2 (08:01→19:35)
[2021-10-11] MEDS: FLUTICASONE FUROATE 200MCG 14 PUFFS/INHALER INH SCH (08:01)
[2021-10-11] MEDS: POLYETHYLENE (MIRALAX) 17 GM PACK PO SCH ×2 (08:02→19:34)
[2021-10-11] MEDS: PANTOprazole 40 MG TAB PO SCH (08:02)
[2021-10-11 08:17] LABS: Eosinophils # (auto) 0.01 K/uL (0-0.5); Eosinophils % (auto) 0.1 %; Hematocrit (blood only) 36.1 % (42-52); Hemoglobin 11.7 g/dL (14.0-18.0); Immature Granulocytes # (auto) 0.02 K/uL (0.00-0.02); Immature Granulocytes % (auto) 0.3 %; Lymphocytes # (auto) 0.54 K/uL (1.2-3.4); Lymphocytes % (auto) 7.3 %; Mean Corpuscular Hemoglobin 28.1 pg (25-34); Mean Corpuscular Hgb Conc 32.4 g/dL (32-36); Mean Corpuscular Volume 86.8 fL (80-100); Mean Platelet Volume 13.3 fL (7.4-10.4); Monocytes # (auto) 0.35 K/uL (0.11-0.59); Monocytes % (auto) 4.7 %; Neutrophils # (auto) 6.51 K/uL (1.4-6.5); Neutrophils % (auto) 87.6 %; Platelet Count 166 K/uL (130-400); RDW Coefficient of Variation 14.1 % (11.5-14.5); RDW Standard Deviation 44.9 fL (36.4-46.3); Red Blood Count 4.16 M/uL (4.7-6.1); White Blood Count 7.43 K/uL (4.8-10.8)
[2021-10-11] MEDS ORDERED: IBRUTINIB 280 MG PO SCH (09:00)
[2021-10-11] MEDS: dexAMETHasone 10 MG in SYRINGE 0 ML IV SCH (10:03)
--- NOTE | 2021-10-11 12:20 | Hospitalist Progress Note ---
Date of Service October 11, 2021 Assessment & Plan (1) COVID: Plan: Srikanth is a 76-year-old male with a past medical history of Parkinson's, CKD, hypertension, hypothyroidism, and Zoya Valentín's macroglobulinemia treated with intermittent IVIG and daily Imbruvica who presents to the emergency department with fever, cough, shortness of breath, poor p.o. intake after testing positive for Covid 7 days ago. Symptom onset was about 1 week before that, rough onset of symptoms approximately 09/26/2021. Patient is vaccinated against COVID-19. Acute hypoxic respiratory failure 2/2 COVID-19 pneumonia, background immunosuppression with WM Vaccinated x2 Symptom onset proximately 09/26/2021 Likely moving into posttrial inflammatory phase of illness, although patient at risk for prolonged viremia with underlying immune suppression Literature search regarding BTK inhibitors with COVID-19 performed, articles independently reviewed as below At this time we will continue his Imbruvica, hematology/oncology consulted for further Remdesivir/baricitinib contraindicated in the setting of immunosuppressant use Continue dexamethasone, increased dose x10 days Currently requiring 5 to 6 L of oxygen CRP 10.5 on admission, downtrending slightly Creatinine 1.44 on admission, baseline approximately 1.41.6 CTchest noncontrast consistent with Covid, does not suggest superimposed bacterial pneumonia DVT PPx: COVID Lovenox (2) Waldenstrom macroglobulinemia: Plan: Continue Imbruvica, patient's will be dropping this off from home has not available through pharmacy IgG/IgM levels checked per recommendation of hematology. IgG level greater than 400, defer IVIG at this time Appreciate recommendations Consensus Statement on the Management of Waldenstrm Macroglobulinemia Patients During the COVID-19 Pandemic reviewed ([facility] [id number]; doi: 10.1097/[id number]). Per hematology association review: For more symptomatic patients, the dilemma is between a traditional approach to cease anti-cancer treatment, and of continuing treatment. This is especially pronounced for BTK inhibitors because of the potential immunosuppressive effect reported with ibrutinib.This may be of potential danger in mounting a response to COVID-19 but may be of benefit in reducing late and severe immune-mediated complications. There are preliminary data on the anti-inflammatory effects of Ibrutinib in murine lung,12 effect on suppression of inflammatory cytokines such as TNF, IL2RA, and CXCL13,20 and down regulatory effects on T cells and macrophages.21 A recent paper has shown that use of Ibrutinib in a small number of WM patients is associated with a low rate of COVID-19 related pulmonary complications. There is the additional risk of developing IgM flare and potentially worsening the clinical situation because of a cytokine storm if BTK inhibitors are withheld. Some limited small and studies suggesting benefit of BTK in patients with WM with full dose BTK inhibitors in COVID19 (doi: 10.1182/blood.[id number]) Treatment of COVID-19 should be per existing protocols otherwise (3) Hypertension: Plan: Continue losartan, continue metoprolol, continue hydralazine (4) Chronic kidney disease, stage 3: Plan: Creatinine baseline approximately 1.41.6 BMP daily (5) Lumbar facet joint syndrome: (6) Parkinson disease: Plan: Continue Sinemet, stimulator in place (7) Hypothyroid: Plan: Continue Synthroid Plan: DVT prophylaxis: Covid dosed Lovenox CODE STATUS: Full code Admission and Anticipated Discharge Date Admission Date: October 10, 2021 Subjective Seen at bedside, feels about 50% improved no fever, chills, sweats, some difficulty breathing improved with oxygen. No chest pain, chest pressure. His is bringing in his Imbruvica, not available via pharmacy. Does not voice other questions or concerns at time of bedside assessment, breathing unlabored. Slight resting hand tremor on exam. Review of Systems Review of Systems: All systems reviewed & are unremarkable except as noted in Subjective Physical Exam Physical Exam: General: A&Ox3. NAD. Cooperative. Resting hand tremor on exam. HEENT: Atraumatic, normocephalic. Visual acuity and hearing grossly intact. Pulm: Moderate air movement, scattered bibasilar crackles without rales/wheezes. Symmetrical chest rise. No increase work of breathing. No respiratory distress. Cardiac: RRR, -mrg. Radial pulses intact and symmetrical. Abdominal: Nontender, nondistended, soft. BS present. Results & Data Results & Data ([facility]) Vital Signs (Past 12 Hours) Vital Signs Temp Pulse Pulse Resp BP Pulse Ox 10/11/21 11:06 36.8 C 66 19 119/63 89 L 10/11/21 08:00 64 10/11/21 07:41 36.5 C 62 18 141/79 H 91 10/11/21 03:38 36.7 C 57 L 19 167/80 H 92 PG Care Time/CCT Total # of Minutes Spent Total Time Spent with Patient: Total time spent is greater than 50% in coordination of care (as documented) at patient's floor/unit and/or counseling patient: Coding Level of Care Code 75481 Subseq Hosp Care Lvl 2 Diagnoses COVID U07.1 Waldenstrom macroglobulinemia C88.0 Hypertension I10 Hypertension type: essential hypertension Chronic kidney disease, stage 3 N18.3 Lumbar facet joint syndrome M47.816 Parkinson disease G20 Hypothyroid E03.9 Hypothyroidism type: unspecified (1) Hypertension Hypertension type: essential hypertension Qualified Code(s): I10 - Essential (primary) hypertension (2) Hypothyroid Hypothyroidism type: unspecified Qualified Code(s): E03.9 - Hypothyroidism, unspecified
[2021-10-11] MEDS: IBRUTINIB 140 MG PO SCH (16:16)
[2021-10-11] MEDS: TAMSULOSIN HCL 0.4 MG CAP PO SCH (19:32)
[2021-10-11] MEDS: METOPROLOL TARTRATE 100 MG TAB PO SCH (19:32)
[2021-10-11] MEDS: LOSARTAN POTASSIUM 50 MG TAB PO SCH (19:33)
[2021-10-11] MEDS: DOCUSATE SODIUM/SENNA 50/8.6MG TAB PO SCH (19:48)
--- NOTE | 2021-10-11 20:20 | Electrocardiogram Report ---
Test Reason : Blood Pressure : / mmHG Vent. Rate : 071 BPM Atrial Rate : 071 BPM P-R Int : 158 ms QRS Dur : 096 ms QT Int : 372 ms P-R-T Axes : 047 -39 -66 degrees QTc Int : 404 ms Poor data quality, interpretation may be adversely affected Normal sinus rhythm Left axis deviation Left ventricular hypertrophy with repolarization abnormality Abnormal ECG When compared with ECG of 04-OCT-2021 10:03, No significant change Confirmed by Venancio Mares ([id number]) on 10/11/2021 8:20:15 PM Referred By: REFERRED SELF Confirmed By:Venancio Mares
[2021-10-12] MEDS: LEVOTHYROXINE SODIUM 112 MCG TABLET PO SCH (06:30)
[2021-10-12] MEDS: CARBIDOPA/LEVODOPA 25-250 1 EA TAB PO SCH ×5 (06:31→22:48)
[2021-10-12] MEDS: ALBUTEROL HFA 8 GM INHALER INH SCH ×5 (06:32→19:21)
[2021-10-12 07:34] LABS: Hematocrit (blood only) 37.3 % (42-52); Immature Granulocytes # (auto) 0.02 K/uL (0.00-0.02); Immature Granulocytes % (auto) 0.1 %; Lymphocytes # (auto) 0.93 K/uL (1.2-3.4); Lymphocytes % (auto) 6.3 %; Mean Corpuscular Hemoglobin 27.7 pg (25-34); Mean Corpuscular Hgb Conc 32.2 g/dL (32-36); Mean Corpuscular Volume 86.1 fL (80-100); Mean Platelet Volume 12.8 fL (7.4-10.4); Monocytes # (auto) 0.58 K/uL (0.11-0.59); Monocytes % (auto) 3.9 %; Neutrophils % (auto) 89.7 %; Platelet Count 177 K/uL (130-400); RDW Coefficient of Variation 13.9 % (11.5-14.5); Red Blood Count 4.33 M/uL (4.7-6.1); White Blood Count 14.83 K/uL (4.8-10.8)
[2021-10-12 08:04] LABS: BUN Creatinine Ratio 30.6 (10-20); Calcium 8.5 mg/dl (8.5-10.1); Creatinine Clr Calc Pharmacy 39.7 ml/min; Est GFR (African American) 47.1 ml/min; Est GFR (Non-African American) 40.6 ml/min; Potassium 3.3 mmol/L (3.5-5.1)
[2021-10-12] MEDS: ENOXAPARIN INJ 40 MG/0.4 ML SYR SQ SCH ×2 (08:31→20:06)
[2021-10-12] MEDS: FLUTICASONE FUROATE 200MCG 14 PUFFS/INHALER INH SCH (08:31)
[2021-10-12] MEDS: ACYCLOVIR 200 MG CAP PO SCH ×2 (08:31→20:05)
[2021-10-12] MEDS: PANTOprazole 40 MG TAB PO SCH (08:32)
[2021-10-12] MEDS: IBRUTINIB 140 MG PO SCH (08:32)
[2021-10-12] MEDS: hydrALAZINE TAB 50 MG TAB PO SCH ×3 (08:32→20:05)
[2021-10-12] MEDS: POLYETHYLENE (MIRALAX) 17 GM PACK PO SCH ×2 (08:34→21:35)
[2021-10-12] MEDS ORDERED: BENZONATATE 100 MG CAPSULE PO PRN (08:34)
[2021-10-12] MEDS: dexAMETHasone 10 MG in SYRINGE 0 ML IV SCH (09:15)
--- NOTE | 2021-10-12 16:13 | Hospitalist Progress Note ---
Date of Service October 12, 2021 Assessment & Plan (1) COVID: Plan: Srikanth is a 76-year-old male with a past medical history of Parkinson's, CKD, hypertension, hypothyroidism, and Zoya Valentín's macroglobulinemia treated with intermittent IVIG and daily Imbruvica who presents to the emergency department with fever, cough, shortness of breath, poor p.o. intake after testing positive for Covid 7 days ago. Symptom onset was about 1 week before that, rough onset of symptoms approximately 09/26/2021. Patient is vaccinated against COVID-19. Acute hypoxic respiratory failure 2/2 COVID-19 pneumonia, background immunosuppression with WM Vaccinated x2 Symptom onset proximately 09/26/2021 Likely moving into posttrial inflammatory phase of illness, although patient at risk for prolonged viremia with underlying immune suppression Literature search regarding BTK inhibitors with COVID-19 performed, articles independently reviewed as below At this time we will continue his Imbruvica, hematology/oncology consulted for further Remdesivir/baricitinib contraindicated in the setting of immunosuppressant use Continue dexamethasone, increased dose x10 days Oxygen requirements increased CRP 10.5 on admission, downtrending slightly Creatinine 1.44 on admission, baseline approximately 1.41.6. 1.[address] noncontrast consistent with Covid, does not suggest superimposed bacterial pneumonia Increased oxygen requirements, leukocytosis today with steroids. Suspect inflammatory phase of Covid, no signs of bacterial superinfection. Will repeat pro-Usama. Has been on DVT prophylaxis DVT PPx: COVID Lovenox (2) Waldenstrom macroglobulinemia: Plan: Continue Imbruvica, patient's will be dropping this off from home has not available through pharmacy IgG/IgM levels checked per recommendation of hematology. IgG level greater than 400, defer IVIG at this time Appreciate recommendations Consensus Statement on the Management of Waldenstrm Macroglobulinemia Patients During the COVID-19 Pandemic reviewed ([facility] [id number]; doi: 10.1097/[id number]). Per hematology association review: For more symptomatic patients, the dilemma is between a traditional approach to cease anti-cancer treatment, and of continuing treatment. This is especially pronounced for BTK inhibitors because of the potential immunosuppressive effect reported with ibrutinib.This may be of potential danger in mounting a response to COVID-19 but may be of benefit in reducing late and severe immune-mediated complications. There are preliminary data on the anti-inflammatory effects of Ibrutinib in murine lung,12 effect on suppression of inflammatory cytokines such as TNF, IL2RA, and CXCL13,20 and down regulatory effects on T cells and macrophages.21 A recent paper has shown that use of Ibrutinib in a small number of WM patients is associated with a low rate of COVID-19 related pulmonary complications. There is the additional risk of developing IgM flare and p otentially worsening the clinical situation because of a cytokine storm if BTK inhibitors are withheld. 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 If uptrending creatinine can add some IV fluids (5) Lumbar facet joint syndrome: (6) Parkinson disease: Plan: Continue Sinemet, stimulator in place (7) Hypothyroid: Plan: Continue Synthroid Plan: DVT prophylaxis: Covid dosed Lovenox CODE STATUS: Full code Admission and Anticipated Discharge Date Admission Date: October 10, 2021 Subjective Seen at bedside, with increased oxygen requirements overnight. Comfortable on Vapotherm, currently at 30 L/FiO2 55. Feels fatigued, continues to have a cough. Cough is nonproductive. Diminished appetite, no n ausea/vomiting/diarrhea/constipation. Denies chest pain/chest pressure today. Review of Systems Review of Systems: All systems reviewed & are unremarkable except as noted in Subjective Physical Exam Physical Exam: General: A&Ox3. NAD. Cooperative. Resting hand tremor on exam. HEENT: Atraumatic, normocephalic. Visual acuity and hearing grossly intact. Pulm: Moderate air movement, increased scattered crackles without rales/wheezes. Symmetrical chest rise. On Vapotherm. Cardiac: RRR, -mrg. Radial pulses intact and symmetrical. Abdominal: Nontender, nondistended, soft. BS present. Results & Data Results & Data ([facility]) Vital Signs (Past 12 Hours) Vital Signs Temp Pulse Pulse Resp BP Pulse Ox 10/12/21 15:31 36.5 C 73 20 108/60 93 10/12/21 11:45 36.6 C 78 20 162/78 H 90 10/12/21 08:00 61 10/12/21 07:56 63 26 H 91 10/12/21 07:18 37.0 C 61 20 132/71 88 L PG Care Time/CCT Total # of Minutes Spent Total Time Spent with Patient: Total time spent is greater than 50% in coordination of care (as documented) at patient's floor/unit and/or counseling patient: Coding Level of Care Code 03693 Subseq Hosp Care Lvl 3 Diagnoses COVID U07.1 Waldenstrom macroglobulinemia C88.0 Hypertension I10 Hypertension type: essential hypertension Chronic kidney disease, stage 3 N18.3 Lumbar facet joint syndrome M47.816 Parkinson disease G20 Hypothyroid E03.9 Hypothyroidism type: unspecified (1) Hypertension Hypertension type: essential hypertension Qualified Code(s): I10 - Essential (primary) hypertension (2) Hypothyroid Hypothyroidism type: unspecified Qualified Code(s): E03.9 - Hypothyroidism, unspecified
[2021-10-12] MEDS: LOSARTAN POTASSIUM 50 MG TAB PO SCH (20:05)
[2021-10-12] MEDS: METOPROLOL TARTRATE 100 MG TAB PO SCH (20:05)
[2021-10-12] MEDS: TAMSULOSIN HCL 0.4 MG CAP PO SCH (20:05)
[2021-10-12] MEDS: ACETAMINOPHEN 325 MG TAB PO PRN (21:34)
[2021-10-12] MEDS: DOCUSATE SODIUM/SENNA 50/8.6MG TAB PO SCH (21:35)
[2021-10-13] MEDS ORDERED: FUROSEMIDE 40 MG/4 ML VIAL IV ONE (05:10)
[2021-10-13] MEDS ORDERED: POTASSIUM CHLORIDE CRTAB 20 MEQ TABCR PO STA (05:28)
[2021-10-13] MEDS: LEVOTHYROXINE SODIUM 112 MCG TABLET PO SCH (05:48)
[2021-10-13] MEDS: ACETAMINOPHEN 325 MG TAB PO PRN (05:51)
[2021-10-13] MEDS: CARBIDOPA/LEVODOPA 25-250 1 EA TAB PO SCH ×4 (06:53→18:45)
[2021-10-13] MEDS: ALBUTEROL HFA 8 GM INHALER INH SCH ×4 (07:31→19:00)
[2021-10-13] MEDS: ENOXAPARIN INJ 40 MG/0.4 ML SYR SQ SCH ×2 (08:00→20:42)
[2021-10-13] MEDS: IBRUTINIB 140 MG PO SCH (08:01)
[2021-10-13] MEDS: ACYCLOVIR 200 MG CAP PO SCH ×2 (08:01→20:42)
[2021-10-13] MEDS: hydrALAZINE TAB 50 MG TAB PO SCH ×3 (08:01→20:41)
[2021-10-13] MEDS: FLUTICASONE FUROATE 200MCG 14 PUFFS/INHALER INH SCH (08:01)
[2021-10-13] MEDS: PANTOprazole 40 MG TAB PO SCH (08:01)
[2021-10-13] MEDS: POLYETHYLENE (MIRALAX) 17 GM PACK PO SCH ×2 (08:02→20:42)
--- NOTE | 2021-10-13 09:06 | XRay Report ---
XR chest 1V portable HISTORY: 76 years-old Male pleural effusion? Follow-up study in a patient with possible pleural effu sions COMPARISON: Chest radiograph and CTA chest 10/10/2021 TECHNIQUE: Portable AP view of the chest FINDINGS: The cardiac silhouette is enlarged. A battery pack is again noted projecting over the left chest with leads projected along the left neck, partially imaged. No pneumothorax or large pleural effusion. Mi ld blunting of the costophrenic angles. Interstitial coarsening with extensive bilateral airspace opa cities, mildly progressed from prior. Degenerative changes of the shoulders and spine. IMPRESSION: 1. Progressive extensive bilateral airspace opacities compatible with viral pneumonia. 2. Blunting of the costophrenic angles may represent atelectasis versus trace effusions. ACT 112: Negative or not required by law. The above report was generated using voice recognition software. It may contain grammatical, syntax o r spelling errors. Electronically signed by: Obie Boss M.D. 10/13/2021 9:05 AM
[2021-10-13] MEDS: dexAMETHasone 10 MG in SYRINGE 0 ML IV SCH (10:05)
[2021-10-13 10:07] LABS: Hematocrit (blood only) 36.9 % (42-52); Immature Granulocytes # (auto) 0.04 K/uL (0.00-0.02); Immature Granulocytes % (auto) 0.4 %; Lymphocytes # (auto) 0.74 K/uL (1.2-3.4); Mean Corpuscular Hemoglobin 28.1 pg (25-34); Mean Corpuscular Hgb Conc 32.5 g/dL (32-36); Mean Corpuscular Volume 86.4 fL (80-100); Mean Platelet Volume 13.2 fL (7.4-10.4); Monocytes # (auto) 0.13 K/uL (0.11-0.59); Monocytes % (auto) 1.2 %; Neutrophils # (auto) 9.61 K/uL (1.4-6.5); Neutrophils % (auto) 91.4 %; Platelet Count 165 K/uL (130-400); RDW Standard Deviation 44.3 fL (36.4-46.3); Red Blood Count 4.27 M/uL (4.7-6.1); White Blood Count 10.52 K/uL (4.8-10.8)
[2021-10-13 10:33] LABS: Calcium 8.6 mg/dl (8.5-10.1); Est GFR (African American) 50.5 ml/min; Est GFR (Non-African American) 43.6 ml/min; Potassium 3.2 mmol/L (3.5-5.1)
[2021-10-13] MEDS: ONDANSETRON 4 MG OD TAB PO PRN (15:37)
--- NOTE | 2021-10-13 17:43 | Hospitalist Progress Note ---
Date of Service October 13, 2021 Assessment & Plan (1) COVID: Plan: First symptoms: 09/26/2021 First tested: 10/10/2021 Vaccinated: Yes (no booster) Admission date: 10/10/2021 Admission O2 requirement: 4L NC Admission CRP: 10.5 Dexamethasone course started: 10/10/2021; End date: 10/19/2021 - Presently at 10 mg daily given increased O2 need. Remdesivir contraindication: On ibrutinib Tocilizumab/baricitinib contraindication: On ibrutinib Antibiotics: None; procal negative x 2 (0.33 and 0.22) DVT ppx: Lovenox 40 mg SQ Q12h Breathing treatments: Albuterol PRN, Tessalon Perles Presently requiring 30 L with FiO2 60%. (2) Waldenstrom macroglobulinemia: Plan: Continue Imbruvica, patient's will be dropping this off from home has not available through pharmacy IgG/IgM levels checked per recommendation of hematology. IgG level greater than 400, defer IVIG at this time Appreciate recommendations (3) Hypertension: Plan: BP today is 120/65. Continue losartan, continue metoprolol, continue hydralazine (4) Chronic kidney disease, stage 3: Plan: Creatinine baseline approximately 1.41.6. Cr presently 1.5. (5) Parkinson disease: Plan: Continue Sinemet, stimulator in place (6) Hypothyroid: Plan: Last TSH in our system from 2019. In context of severe illness, no real utility in checking. Continue Synthroid - Repeat TSH/FT4 with PCP once Covid is improving. Admission and Anticipated Discharge Date Admission Date: October 10, 2021 Subjective Doing well today. No major changes today. Feels tired, but no shortness of breath. Reports no fevers/chills, chest pain, shortness of breath, abdominal pain, nausea, or vomiting. Physical Exam Constitutional: WD/WN, vitals as above Eyes: EOM intact bilaterally; no conjunctival abnormality ENMT: external ear and nose normal, oropharynx normal Neck: trachea midline, no thyromegaly normal visual inspection Respiratory: normal respiratory effort, lungs clear to auscultation no respiratory distress Cardiovascular: RRR, no murmur, no edema Gastrointestinal (Abdomen): Inspection/Auscultation: abdomen normal to inspection; abdomen not distended Musculoskeletal: no cyanosis or clubbing, extremities motor strength 5/5 Skin: no rashes, warm and dry Neurologic: moves all extremities and awake Psychiatric: Orientation: alert, oriented to person and cooperative Results & Data Results & Data ([facility]) Vital Signs (Past 12 Hours) Vital Signs Temp Pulse Pulse Resp BP Pulse Ox 10/13/21 16:00 37.1 C 74 22 122/65 90 10/13/21 15:05 73 32 H 95 10/13/21 11:22 36.8 C 70 32 H 132/65 96 10/13/21 10:40 69 30 H 90 10/13/21 08:11 36.6 C 69 33 H 146/88 H 91 10/13/21 08:00 63 10/13/21 07:32 65 24 92 10/13/21 06:44 22 91 PG Care Time/CCT Total # of Minutes Spent Total Time Spent with Patient: Total time spent is greater than 50% in coordination of care (as documented) at patient's floor/unit and/or counseling patient: Coding Level of Care Code 69414 Subseq Hosp Care Lvl 2 Diagnoses COVID U07.1 Waldenstrom macroglobulinemia C88.0 Hypertension I10 Hypertension type: essential hypertension Chronic kidney disease, stage 3 N18.3 Parkinson disease G20 Hypothyroid E03.9 Hypothyroidism type: unspecified (1) Hypertension Hypertension type: essential hypertension Qualified Code(s): I10 - Essential (primary) hypertension (2) Hypothyroid Hypothyroidism type: unspecified Qualified Code(s): E03.9 - Hypothyroidism, unspecified
[2021-10-13] MEDS: LOSARTAN POTASSIUM 50 MG TAB PO SCH (20:41)
[2021-10-13] MEDS: METOPROLOL TARTRATE 100 MG TAB PO SCH (20:42)
[2021-10-13] MEDS: TAMSULOSIN HCL 0.4 MG CAP PO SCH (20:42)
[2021-10-13] MEDS: DOCUSATE SODIUM/SENNA 50/8.6MG TAB PO SCH (20:43)
[2021-10-14] MEDS: LEVOTHYROXINE SODIUM 112 MCG TABLET PO SCH (06:26)
[2021-10-14 06:53] LABS: Hematocrit (blood only) 36.4 % (42-52); Hemoglobin 11.5 g/dL (14.0-18.0); Mean Corpuscular Hemoglobin 27.6 pg (25-34); Mean Corpuscular Hgb Conc 31.6 g/dL (32-36); Mean Corpuscular Volume 87.3 fL (80-100); Mean Platelet Volume 13.1 fL (7.4-10.4); Platelet Count 153 K/uL (130-400); RDW Coefficient of Variation 13.9 % (11.5-14.5); RDW Standard Deviation 44.9 fL (36.4-46.3); Red Blood Count 4.17 M/uL (4.7-6.1); White Blood Count 12.15 K/uL (4.8-10.8)
[2021-10-14 07:20] LABS: Albumin Level 2.4 gm/dl (3.4-5.0); BUN Creatinine Ratio 34.7 (10-20); Calcium 8.4 mg/dl (8.5-10.1); Est GFR (African American) 54.8 ml/min; Est GFR (Non-African American) 47.3 ml/min; Magnesium 2.5 mg/dl (1.8-2.4); Potassium 3.4 mmol/L (3.5-5.1)
[2021-10-14 07:22] LABS: Albumin Globulin Ratio 0.8 (0.9-2); Bilirubin,Total 0.7 mg/dl (0.2-1); Globulin 3.1 gm/dl (2.5-4.0); Total Protein 5.5 gm/dl (6.4-8.2)
[2021-10-14] MEDS: ALBUTEROL HFA 8 GM INHALER INH SCH ×2 (08:19→10:56)
--- NOTE | 2021-10-14 08:56 | XRay Report ---
XR chest 1V portable HISTORY: Hypoxemia, Covid COMPARISON: Chest 10/13/2021. FINDINGS: No pneumothorax. No pleural effusions. The heart is mildly enlarged. Left chest wall neuros timulator device is again noted. Bilateral mid to lower lung zone patchy airspace opacities persist. This is similar to the prior study. No evidence for pulmonary edema. IMPRESSION: No change in the bilateral airspace opacities likely representing a viral pneumonia. ACT 112: Negative or not required by law. Electronically signed by: Rudy Desouza M.D. 10/14/2021 8:54 AM
[2021-10-14] MEDS: CARBIDOPA/LEVODOPA 25-250 1 EA TAB PO SCH ×6 (09:05→22:05)
[2021-10-14] MEDS: hydrALAZINE TAB 50 MG TAB PO SCH ×3 (09:06→19:24)
[2021-10-14] MEDS: PANTOprazole 40 MG TAB PO SCH (09:06)
[2021-10-14] MEDS: IBRUTINIB 140 MG PO SCH (09:07)
[2021-10-14] MEDS: ACYCLOVIR 200 MG CAP PO SCH ×2 (09:07→19:25)
[2021-10-14] MEDS: ENOXAPARIN INJ 40 MG/0.4 ML SYR SQ SCH ×2 (09:07→19:24)
[2021-10-14] MEDS: FLUTICASONE FUROATE 200MCG 14 PUFFS/INHALER INH SCH (09:09)
[2021-10-14] MEDS: dexAMETHasone 10 MG in SYRINGE 0 ML IV SCH (09:09)
[2021-10-14] MEDS: POLYETHYLENE (MIRALAX) 17 GM PACK PO SCH ×2 (09:19→22:05)
[2021-10-14] MEDS: ACETAMINOPHEN 325 MG TAB PO PRN ×2 (09:19→18:46)
[2021-10-14] MEDS ORDERED: ALBUTEROL HFA 8 GM INHALER INH PRN (11:50)
--- NOTE | 2021-10-14 13:54 | Hospitalist Progress Note ---
Date of Service October 14, 2021 Assessment & Plan (1) COVID: Plan: First symptoms: 09/26/2021 First tested: 10/10/2021 Vaccinated: Yes (no booster) Admission date: 10/10/2021 Admission O2 requirement: 4L NC Admission CRP: 10.5 Dexamethasone course started: 10/10/2021; End date: 10/19/2021 - Presently at 10 mg daily given increased O2 need. Remdesivir contraindication: On ibrutinib Tocilizumab/baricitinib contraindication: On ibrutinib Antibiotics: None; procal negative x 2 (0.33 and 0.22) DVT ppx: Lovenox 40 mg SQ Q12h Breathing treatments: Albuterol PRN, Tessalon Perles Presently requiring 55 L with FiO2 65%. Mild increase from yesterday, though appears comfortable after transitioned to high flow from CPAP. (2) Waldenstrom macroglobulinemia: Plan: Please see admitter's note for position statement on continuing his Imbruvica. Continue Imbruvica. IgG/IgM levels checked per recommendation of hematology. IgG level greater than 400, defer IVIG at this time Appreciate recommendations (3) Hypertension: Plan: BP today is 140/75. Continue losartan, continue metoprolol, continue hydralazine (4) Chronic kidney disease, stage 3: Plan: Creatinine baseline approximately 1.41.6. Cr presently 1.4. (5) Parkinson disease: Plan: Continue Sinemet, stimulator in place (6) Hypothyroid: Plan: Last TSH in our system from 2019. In context of severe illness, no real utility in checking. Continue Synthroid - Repeat TSH/FT4 with PCP once Covid is improving. Admission and Anticipated Discharge Date Admission Date: October 10, 2021 Subjective Seen with CPAP on. He is not liking it, and feels that he is having some mild trouble breathing, though O2 sats remain good. Seen a second time with high-flow on, and he is much more comfortable. Reports no fevers/chills, chest pain, abdominal pain, nausea, or vomiting. Physical Exam Constitutional: WD/WN, vitals as above Eyes: EOM intact bilaterally; no conjunctival abnormality ENMT: external ear and nose normal, oropharynx normal Neck: trachea midline, no thyromegaly normal visual inspection Respiratory: normal respiratory effort, lungs clear to auscultation no respiratory distress Cardiovascular: RRR, no murmur, no edema Gastrointestinal (Abdomen): Inspection/Auscultation: abdomen normal to inspection; abdomen not distended Musculoskeletal: no cyanosis or clubbing, extremities motor strength 5/5 Skin: no rashes, warm and dry Neurologic: moves all extremities and awake Psychiatric: Orientation: alert, oriented to person and cooperative Results & Data Results & Data ([facility]) Vital Signs (Past 12 Hours) Vital Signs Temp Pulse Pulse Resp BP Pulse Ox 10/14/21 11:21 36.7 C 72 20 142/76 H 92 10/14/21 10:57 73 30 H 92 10/14/21 08:17 69 21 91 10/14/21 07:42 36.9 C 62 24 162/78 H 98 10/14/21 06:27 63 10/14/21 04:35 56 L 33 H 100 10/14/21 03:56 58 L 36 H 91 10/14/21 03:26 36.7 C 57 L 24 143/81 H 91 PG Care Time/CCT Total # of Minutes Spent Total Time Spent with Patient: Total time spent is greater than 50% in coordination of care (as documented) at patient's floor/unit and/or counseling patient: Coding Level of Care Code 53269 Subseq Hosp Care Lvl 2 Diagnoses COVID U07.1 Waldenstrom macroglobulinemia C88.0 Hypertension I10 Hypertension type: essential hypertension Chronic kidney disease, stage 3 N18.3 Parkinson disease G20 Hypothyroid E03.9 Hypothyroidism type: unspecified (1) Hypertension Hypertension type: essential hypertension Qualified Code(s): I10 - Essential (primary) hypertension (2) Hypothyroid Hypothyroidism type: unspecified Qualified Code(s): E03.9 - Hypothyroidism, unspecified
[2021-10-14] MEDS ORDERED: POTASSIUM CHLORIDE CRTAB 20 MEQ TABCR PO STA (13:55)
[2021-10-14] MEDS: LOSARTAN POTASSIUM 50 MG TAB PO SCH (19:25)
[2021-10-14] MEDS: TAMSULOSIN HCL 0.4 MG CAP PO SCH (19:25)
[2021-10-14] MEDS: METOPROLOL TARTRATE 100 MG TAB PO SCH (19:26)
[2021-10-14] MEDS: DOCUSATE SODIUM/SENNA 50/8.6MG TAB PO SCH (22:04)
[2021-10-15 07:08] LABS: Hematocrit (blood only) 38.9 % (42-52); Hemoglobin 12.4 g/dL (14.0-18.0); Mean Corpuscular Hemoglobin 27.9 pg (25-34); Mean Corpuscular Hgb Conc 31.9 g/dL (32-36); Mean Corpuscular Volume 87.4 fL (80-100); Mean Platelet Volume 13.2 fL (7.4-10.4); Platelet Count 170 K/uL (130-400); RDW Coefficient of Variation 13.9 % (11.5-14.5); RDW Standard Deviation 45.2 fL (36.4-46.3); Red Blood Count 4.45 M/uL (4.7-6.1); White Blood Count 14.76 K/uL (4.8-10.8)
[2021-10-15] MEDS: LEVOTHYROXINE SODIUM 112 MCG TABLET PO SCH (07:43)
[2021-10-15 07:47] LABS: BUN Creatinine Ratio 36.8 (10-20); Calcium 8.6 mg/dl (8.5-10.1); Creatinine Clr Calc Pharmacy 48.8 ml/min; Est GFR (African American) 60.4 ml/min; Est GFR (Non-African American) 52.1 ml/min; Potassium 4.3 mmol/L (3.5-5.1)
--- NOTE | 2021-10-15 08:03 | Hospitalist Progress Note ---
Date of Service October 15, 2021 Assessment & Plan (1) COVID: Plan: First symptoms: 09/26/2021 First tested: 10/10/2021 Vaccinated: Yes (no booster) Admission date: 10/10/2021 Admission O2 requirement: 4L NC Admission CRP: 10.5 Dexamethasone course started: 10/10/2021; End date: 10/19/2021 - Presently at 10 mg daily given increased O2 need. Remdesivir contraindication: On ibrutinib Tocilizumab/baricitinib contraindication: On ibrutinib Antibiotics: None; procal negative x 2 (0.33 and 0.22) DVT ppx: Lovenox 40 mg SQ Q12h Breathing treatments: Albuterol PRN, Tessalon Perles Presently requiring 50 L with FiO2 65%. Mild increase from yesterday, though appears comfortable after transitioned to high flow from CPAP. (2) Waldenstrom macroglobulinemia: Plan: Please see admitter's note for position statement on continuing his Imbruvica. Continue Imbruvica. IgG/IgM levels checked per recommendation of hematology. IgG level greater than 400, defer IVIG at this time Appreciate recommendations (3) Hypertension: Plan: BP today is 140/75. Continue losartan, continue metoprolol, continue hydralazine (4) Chronic kidney disease, stage 3: Plan: Creatinine baseline approximately 1.41.6. Cr presently 1.4. (5) Parkinson disease: Plan: Continue Sinemet, stimulator in place (6) Hypothyroid: Plan: Last TSH in our system from 2019. In context of severe illness, no real utility in checking. Continue Synthroid - Repeat TSH/FT4 with PCP once Covid is improving. Admission and Anticipated Discharge Date Admission Date: October 10, 2021 Subjective Pt is during well with some mild reduction in oxygen supply Review of Systems Review of Systems: Moderate distress and fatigue no headache, no visual changes no speech or swallowing issues no chest pain, pressure or palpitations Continue shortness of breath, nonproductive cough or wheezes no abdominal pain, nausea or vomiting, no diarrhea no dysuria, hematuria or frequency no focal joint pain or swelling no back pain, CVA tenderness or radicular pain no bruising, bleeding or rashes no focal signs of weakness or numbness or altered sensation no complaints of anxiety or depression.. Physical Exam Physical Exam: The patient appeared mild to moderate respiratory distress Vital signs as documented. Head exam is normocephalic atraumatic Neck is without JVD, thyromegaly, or carotid bruits. Lungs are coarse bilaterally in all lung elizondo tachypnea Cardiac exam, Rhythm is regular.. No murmurs, rubs or gallops. Abdominal exam reveals normal bowel sounds, soft non tender, no masses Extremities are nonedematous and both pedal pulses are present Neurologic exam is alert and oriented, no focal loss of strength or sensation Skin is without bruises or rashes Psychologically is without concerns for anxiety or depression.. Results & Data Results & Data ([facility]) Vital Signs (Past 12 Hours) Vital Signs Temp Pulse Resp BP Pulse Ox 10/15/21 07:20 60 28 H 92 10/15/21 03:38 97.9 F 53 L 22 170/85 H 92 10/15/21 02:34 55 L 28 H 84 L 10/14/21 23:34 58 L 26 H 93 10/14/21 22:48 97.9 F 58 L 23 149/88 H 91 PG Care Time/CCT Total # of Minutes Spent Total Time Spent with Patient: Total time spent is greater than 50% in coordination of care (as documented) at patient's floor/unit and/or counseling patient: Coding Level of Care Code 69837 Subseq Hosp Care Lvl 2 Diagnoses COVID U07.1 Waldenstrom macroglobulinemia C88.0 Hypertension I10 Hypertension type: essential hypertension Chronic kidney disease, stage 3 N18.3 Parkinson disease G20 Hypothyroid E03.9 Hypothyroidism type: unspecified (1) Hypothyroid Hypothyroidism type: unspecified Qualified Code(s): E03.9 - Hypothyroidism, unspecified (2) Hypertension Hypertension type: essential hypertension Qualified Code(s): I10 - Essential (primary) hypertension
[2021-10-15] MEDS: ACETAMINOPHEN 325 MG TAB PO PRN ×2 (08:45→20:22)
[2021-10-15] MEDS: CARBIDOPA/LEVODOPA 25-250 1 EA TAB PO SCH ×5 (08:45→23:47)
[2021-10-15] MEDS: PANTOprazole 40 MG TAB PO SCH ×2 (08:45→19:32)
[2021-10-15] MEDS: hydrALAZINE TAB 50 MG TAB PO SCH ×3 (08:46→19:31)
[2021-10-15] MEDS: ACYCLOVIR 200 MG CAP PO SCH ×2 (08:46→19:30)
[2021-10-15] MEDS: ENOXAPARIN INJ 40 MG/0.4 ML SYR SQ SCH ×2 (08:47→19:32)
[2021-10-15] MEDS: FLUTICASONE FUROATE 200MCG 14 PUFFS/INHALER INH SCH (08:47)
[2021-10-15] MEDS: IBRUTINIB 140 MG PO SCH (08:47)
[2021-10-15] MEDS: POLYETHYLENE (MIRALAX) 17 GM PACK PO SCH ×2 (09:19→20:24)
[2021-10-15] MEDS: dexAMETHasone 10 MG in SYRINGE 0 ML IV SCH (09:20)
[2021-10-15] MEDS: METOCLOPRAMIDE HCL 5 MG TABLET PO SCH ×2 (17:04→19:31)
[2021-10-15] MEDS: LOSARTAN POTASSIUM 50 MG TAB PO SCH (19:31)
[2021-10-15] MEDS: TAMSULOSIN HCL 0.4 MG CAP PO SCH (19:31)
[2021-10-15] MEDS: METOPROLOL TARTRATE 100 MG TAB PO SCH (19:31)
[2021-10-15] MEDS: DOCUSATE SODIUM/SENNA 50/8.6MG TAB PO SCH (20:22)
[2021-10-16] MEDS: LEVOTHYROXINE SODIUM 112 MCG TABLET PO SCH (06:10)
[2021-10-16] MEDS: CARBIDOPA/LEVODOPA 25-250 1 EA TAB PO SCH ×5 (06:10→23:55)
[2021-10-16] MEDS: METOCLOPRAMIDE HCL 5 MG TABLET PO SCH (06:57)
[2021-10-16] MEDS: ACETAMINOPHEN 325 MG TAB PO PRN (07:19)
[2021-10-16] MEDS: ACYCLOVIR 200 MG CAP PO SCH ×2 (08:00→19:51)
[2021-10-16] MEDS: FLUTICASONE FUROATE 200MCG 14 PUFFS/INHALER INH SCH (08:01)
[2021-10-16] MEDS: ENOXAPARIN INJ 40 MG/0.4 ML SYR SQ SCH ×2 (08:01→21:58)
[2021-10-16] MEDS: hydrALAZINE TAB 50 MG TAB PO SCH ×3 (08:01→19:52)
[2021-10-16] MEDS: POLYETHYLENE (MIRALAX) 17 GM PACK PO SCH ×2 (08:02→21:58)
[2021-10-16] MEDS: IBRUTINIB 140 MG PO SCH (08:02)
[2021-10-16] MEDS: PANTOprazole 40 MG TAB PO SCH ×2 (08:02→19:52)
[2021-10-16] MEDS: dexAMETHasone 10 MG in SYRINGE 0 ML IV SCH (09:29)
--- NOTE | 2021-10-16 10:35 | Hospitalist Progress Note ---
Date of Service October 16, 2021 Assessment & Plan (1) COVID: Plan: First symptoms: 09/26/2021 (home test positive at that time) First tested: 10/10/2021 Vaccinated: Yes (no booster) Admission date: 10/10/2021 Admission O2 requirement: 4L NC Admission CRP: 10.5 Dexamethasone course started: 10/10/2021; End date: 10/19/2021 - Presently at 10 mg daily given increased O2 need. Remdesivir contraindication: On ibrutinib Tocilizumab/baricitinib contraindication: On ibrutinib Antibiotics: None; procal negative x 2 (0.33 and 0.22) DVT ppx: Lovenox 40 mg SQ Q12h Breathing treatments: Albuterol PRN, Tessalon Perles (2) Acute respiratory failure with hypoxia: Plan: Aim O2 sats > 90% Presently requiring 45 L with FiO2 65%. Appears stable but given time course of illness and subjective worsening shortness of breath will get CT for PE to rule this out. (3) Waldenstrom macroglobulinemia: Plan: Please see admitter's note for position statement on continuing his Imbruvica. Continue Imbruvica. IgG/IgM levels checked per recommendation of hematology. IgG level greater than 400, defer IVIG at this time Appreciate recommendations (4) Right upper quadrant abdominal pain: Plan: CT A/P with IV contrast - no acute etiology identified Continue to monitor BM (5) Hypertension: Plan: BP today is 140/75. Continue losartan, continue metoprolol, continue hydralazine (6) Chronic kidney disease, stage 3: Plan: Creatinine baseline approximately 1.41.6. Cr presently 1.3. (7) Parkinson disease: Plan: Continue Sinemet, stimulator in place Discontinued metoclopramide - do not recommend restarting in the setting of his Parkinson's disease (8) Hypothyroid: Plan: Last TSH in our system from 2019. In context of severe illness, no real utility in checking. Continue Synthroid - Repeat TSH/FT4 with PCP once Covid is improving. (9) Hx of brain surgery: Plan: DBS 06/2020 Plan: VTE Prophylaxis - Lovenox 40mg SQ BID Diet - regular Disposition - continue on PCU, COVID isolation Admission and Anticipated Discharge Date Admission Date: October 10, 2021 Subjective Patient reports slight worsening of shortness of breath today but not much compared to yesterday. His main complaint is abdominal pain which he reports has been going on for some weeks intermittently. No radiation. Not alleviated by bowel movements. No melena, diarrhea or constipation. No nasuea or vomiting but very reduced appetite. No prior CT imaging of abdomen performed and not mentioned in other providers notes reviewed. Updated his over the phone. Review of Systems Review of Systems: All systems reviewed & are unremarkable except as noted in HPI & below Physical Exam Constitutional: well developed; + not well nourished and no acute distress Eyes: + anicteric sclerae; normal pupil size ENMT: external ear and nose normal, oropharynx normal Neck: trachea midline, no thyromegaly Respiratory: + uses accessory muscles and able to speak in complete sentences Auscultation: + diminished lung sounds (bibasal) and + crackles (fine bibasal); no wheezes Cardiovascular: Rate/Rhythm: regular rate and regular rhythm Heart Sounds: + murmur (TRINA LUSB 4/6) Gastrointestinal (Abdomen): Inspection/Auscultation: normal bowel sounds; abdomen not distended Percussion/Palpation: + abdomen tender (RUQ) and abdomen soft; no guarding and abdomen not rigid Musculoskeletal: no cyanosis or clubbing, extremities motor strength 5/5 Skin: no rashes, warm and dry Neurologic: moves all extremities and awake; not confused Motor/Sensory: + tremor (mild right sided at rest) Psychiatric: A+Ox3, euthymic affect Results & Data Results & Data ([facility]) Vital Signs (Past 12 Hours) Vital Signs Temp Pulse Pulse Resp BP Pulse Ox 10/16/21 10:05 98 10/16/21 08:49 100 10/16/21 08:20 76 22 96 10/16/21 07:49 36.8 C 82 26 H 158/90 H 93 10/16/21 07:27 78 10/16/21 03:40 26 H 82 L 10/16/21 03:36 36.6 C 61 22 173/89 H 91 10/15/21 23:15 36.6 C 61 20 150/87 H 92 10/15/21 23:00 64 24 91 PG Care Time/CCT Total # of Minutes Spent Total Time Spent with Patient: Total time spent is greater than 50% in coordination of care (as documented) at patient's floor/unit and/or counseling patient: Coding Level of Care Code 00702 Subseq Hosp Care Lvl 3 Diagnoses COVID U07.1 Waldenstrom macroglobulinemia C88.0 Hypertension I10 Hypertension type: essential hypertension Chronic kidney disease, stage 3 N18.3 Parkinson disease G20 Hypothyroid E03.9 Hypothyroidism type: unspecified Right upper quadrant abdominal pain R10.11 Acute respiratory failure with hypoxia J96.01 Hx of brain surgery Z98.890 (1) Hypothyroid Hypothyroidism type: unspecified Qualified Code(s): E03.9 - Hypothyroidism, unspecified (2) Hypertension Hypertension type: essential hypertension Qualified Code(s): I10 - Essential (primary) hypertension
[2021-10-16] MEDS ORDERED: OPTIRAY 320 125ml IV ONE (11:58)
--- NOTE | 2021-10-16 12:26 | CT Scan Report ---
CHEST CTA for PULMONARY ARTERIES CT DOSE: 1232.75 mGy.cm HISTORY: PE, worsening shortness of breath TECHNIQUE: Multiaxial CT images of the chest were performed following the intravenous administration of contrast to evaluate the pulmonary arteries. Maximal intensity projection images were also obtaine d. A dose lowering technique was utilized adhering to the principles of ALARA. COMPARISON STUDY: Chest CT 10/10/2021. FINDINGS: The visualized liver, spleen, and adrenal glands are unremarkable. There is left-sided pace maker. Normal esophagus. No pleural or pericardial effusions. The heart is borderline enlarged. Dista l periaortic and retrocrural lymphadenopathy is again noted. This is similar to the prior study. Sisi nant periportal lymph node measures 2.3 x 1.8 cm. Prominent mediastinal lymph nodes are also stable. Mild right hilar lymphadenopathy is again noted. Moderate calcified plaque within the coronary arteri es. 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 No evidence for an aortic dissection. No filling defects within the pulmonary arteries to suggest a pulmonary embolus. No fractures within the visualized osseous structures. The central airways are patent. No pneumothorax. Multifocal groundglass and consolidative airspace opacities are again noted throughout the majority the lungs. This has slightly progressed in the interval. IMPRESSION: 1. No evidence for pulmonary embolus. 2. Slight progression of the moderate to severe multifocal viral pneumonia. 3. Persistent mediastinal/retrocrural and right hilar lymphadenopathy. Follow-up chest CT in 6 months is recommended to ensure complete resolution. 4. Additional findings as described above. ACT 112: Negative or not required by law. Electronically signed by: Rudy Desouza M.D. 10/16/2021 12:24 PM
--- NOTE | 2021-10-16 12:28 | CT Scan Report ---
CT SCAN OF THE ABDOMEN AND PELVIS WITH IV CONTRAST CLINICAL HISTORY: Right upper quadrant abdominal pain. Covid. COMPARISON STUDY: Abdominal CT dated 01/01/2019. TECHNIQUE: Following the IV administration of 104 cc of Optiray 320, CT scan of the abdomen and pelv is is performed from the lung bases to the proximal femora. Images are reviewed in the axial, sagitta l, and coronal planes. IV contrast was administered without complication. A dose lowering technique w as utilized adhering to the principles of ALARA. The examination is compromised by motion artifact. FINDINGS: Lung bases: The heart is mildly enlarged and without pericardial effusion. The coronary arteries are densely calcified. Groundglass consolidation is seen throughout both lung bases. There is mild bronch iectasis. Trace pleural effusions are noted. Liver: The contrast-enhanced liver is enlarged, measuring 22.4 cm in length. The liver is otherwise n ormal in contour and attenuation. There is no intrahepatic biliary ductal dilatation. The hepatic vei ns and portal veins are patent. Gallbladder: There are numerous gallstones with no CT evidence of acute cholecystitis. Spleen: The spleen is enlarged measuring 14.2 cm in length. Pancreas: Unremarkable. Adrenal glands: Unremarkable. Kidneys: The contrast enhanced kidneys demonstrate cortical atrophy and are without hydronephrosis. C ortical enhancement is mildly heterogeneous. Abdominal vasculature: The abdominal aorta is normal in course and caliber noting advanced atheroscle rotic calcification. Bowel: There is scattered colonic diverticula without CT evidence of acute diverticulitis. No bowel o bstruction is seen. Fecal retention is noted throughout the colon. The appendix is well-visualized a nd normal. Peritoneum: No intraperitoneal free air is identified. There is a small volume of pelvic ascites. The re is a fat-containing umbilical hernia. Lymphadenopathy: There are mildly enlarged retrocrural lymph node measures 1.6 cm in short axis. Conf luent retroperitoneal, iliac chain, pelvic sidewall lymphadenopathy seen on 01/01/2019 has largely res olved. Pelvic viscera: Evaluation of the pelvis is degraded by streak artifact from a left hip arthroplasty. The prostate gland is enlarged and heterogeneous noting median lobe hypertrophy. The bladder wall ap pears thickened and trabeculated suggesting chronic outlet obstruction. There is a small fat-containi ng left inguinal hernia. Skeletal structures: The skeletal structures are osteopenic. There is moderate lumbosacral spondylosi s. Bilateral pars defects are noted at L5. No lytic or blastic lesions are seen. A left hip arthropla sty is in place IMPRESSION: 1. Motion compromised examination. 2. Groundglass consolidation is seen at both lung bases, consistent with the reported history of a vi ral pneumonia. 3. There is a small volume of pelvic ascites. 4. Hepatosplenomegaly. 5. Cholelithiasis. 6. Renal cortical enhancement is heterogeneous. Correlate with clinical findings and urinalysis. 7. There is a mildly enlarged right retrocrural lymph node. The bulky abdominal lymphadenopathy seen on 01/01/2019 has largely resolved. 8. Additional findings as above. ACT 112: Negative or not required by law. Electronically signed by: Hi Rodney M.D. 10/16/2021 12:27 PM
[2021-10-16] MEDS: TAMSULOSIN HCL 0.4 MG CAP PO SCH (19:51)
[2021-10-16] MEDS: LOSARTAN POTASSIUM 50 MG TAB PO SCH (19:53)
[2021-10-16] MEDS: METOPROLOL TARTRATE 100 MG TAB PO SCH (19:53)
--- NOTE | 2021-10-16 21:50 | Ultrasound Report ---
US arterial duplex LE LT CLINICAL HISTORY: diminished L pedal pulse TECHNIQUE: Real-time grayscale and color and spectral Doppler ultrasound imaging of the left lower ex tremity arteries was performed. Measurements calculated based on NASCET criteria. COMPARISON: None available at the time of this dictation. FINDINGS: LEFT: Common femoral artery: Triphasic waveforms. Peak systolic velocity (PSV) 55 cm/s. Deep femoral artery: Biphasic waveforms. PSV 64 cm/s. Superficial femoral artery: Triphasic waveforms. PSV 82 cm/s. Popliteal artery: Triphasic waveforms. PSV 58 cm/s. Anterior tibial artery: Triphasic waveforms. PSV 71 cm/s. Posterior tibial artery: Triphasic waveforms. PSV 102 cm/s. Peroneal artery: Triphasic waveforms. PSV 57 cm/s. Dorsalis pedis: Triphasic waveforms. PSV 63 cm/s. IMPRESSION: No hemodynamically significant stenosis. ACT 112: Negative or not required by law. Electronically signed by: Richmond Montaño M.D. 10/16/2021 9:49 PM
[2021-10-16] MEDS: DOCUSATE SODIUM/SENNA 50/8.6MG TAB PO SCH (21:58)
[2021-10-17] MEDS ORDERED: MELATONIN 3 MG TAB PO PRN (04:44)
[2021-10-17] MEDS ORDERED: LORazepam 1 MG/2 ML VIAL IV STA (05:40)
[2021-10-17 06:12] LABS: Hematocrit (blood only) 38.6 % (42-52); Hemoglobin 12.2 g/dL (14.0-18.0); Mean Corpuscular Hemoglobin 27.7 pg (25-34); Mean Corpuscular Hgb Conc 31.6 g/dL (32-36); Mean Corpuscular Volume 87.5 fL (80-100); Mean Platelet Volume 13.1 fL (7.4-10.4); Platelet Count 224 K/uL (130-400); RDW Coefficient of Variation 14.3 % (11.5-14.5); RDW Standard Deviation 45.6 fL (36.4-46.3); Red Blood Count 4.41 M/uL (4.7-6.1)
[2021-10-17] MEDS ORDERED: MoRPHine SULFATE 2 MG/ML CARP IV STA (06:33)
[2021-10-17 06:34] LABS: Basophils # (auto) 0.03 K/uL (0-0.2); Basophils % (auto) 0.1 %; Immature Granulocytes # (auto) 0.41 K/uL (0.00-0.02); Immature Granulocytes % (auto) 1.5 %; Lymphocytes # (auto) 1.33 K/uL (1.2-3.4); Lymphocytes % (auto) 4.8 %; Monocytes # (auto) 2.52 K/uL (0.11-0.59); Monocytes % (auto) 9.1 %; Neutrophils # (auto) 23.31 K/uL (1.4-6.5); Neutrophils % (auto) 84.5 %; RBC Morphology Unremarkable
[2021-10-17] MEDS: ACETAMINOPHEN 325 MG TAB PO PRN (06:44)
[2021-10-17] MEDS: CARBIDOPA/LEVODOPA 25-250 1 EA TAB PO SCH ×5 (06:44→23:59)
[2021-10-17] MEDS: LEVOTHYROXINE SODIUM 112 MCG TABLET PO SCH (06:44)
[2021-10-17 06:54] LABS: Potassium 4.4 mmol/L (3.5-5.1)
[2021-10-17 06:55] LABS: Albumin Level 2.4 gm/dl (3.4-5.0); BUN Creatinine Ratio 30.2 (10-20); Creatinine Clr Calc Pharmacy 46.8 ml/min; Est GFR (African American) 52.1 ml/min
[2021-10-17 06:57] LABS: Albumin Globulin Ratio 0.6 (0.9-2); Bilirubin,Total 0.9 mg/dl (0.2-1); Globulin 3.8 gm/dl (2.5-4.0); Total Protein 6.2 gm/dl (6.4-8.2)
--- NOTE | 2021-10-17 09:40 | XRay Report ---
XR chest 1V portable CLINICAL HISTORY: declining respiratory status TECHNIQUE: Single frontal radiograph of the chest was obtained. Comparison: Comparison is made to chest one view 10/14/2021 FINDINGS: Battery-powered device is again noted in the left chest wall. The cardiomediastinal silhouette is sta ble. Multifocal airspace opacities are seen. No evidence of pleural effusion or pneumothorax. IMPRESSION: Multifocal airspace opacities compatible with history of viral pneumonia. ACT 112: Negative or not required by law. Electronically signed by: Richmond Montaño M.D. 10/17/2021 9:39 AM
[2021-10-17 09:44] LABS: C Reactive Protein 10.7 mg/dl (0-0.29); Phosphorus 3.3 mg/dl (2.5-4.9)
[2021-10-17] MEDS: ACYCLOVIR 200 MG CAP PO SCH ×2 (09:46→21:24)
[2021-10-17] MEDS: hydrALAZINE TAB 50 MG TAB PO SCH ×3 (09:47→21:26)
[2021-10-17] MEDS: IBRUTINIB 140 MG PO SCH (09:47)
[2021-10-17] MEDS: PANTOprazole 40 MG TAB PO SCH ×2 (09:47→21:27)
[2021-10-17] MEDS: POLYETHYLENE (MIRALAX) 17 GM PACK PO SCH ×2 (09:48→21:27)
[2021-10-17] MEDS: FLUTICASONE FUROATE 200MCG 14 PUFFS/INHALER INH SCH (09:48)
[2021-10-17] MEDS: dexAMETHasone 10 MG in SYRINGE 0 ML IV SCH (09:49)
[2021-10-17] MEDS: ENOXAPARIN INJ 40 MG/0.4 ML SYR SQ SCH ×2 (09:49→21:25)
[2021-10-17 09:52] LABS: Base Excess ABG 0.9 mEq/L (-9-1.8); HCO3 ABG 23 mmol/L (19-24); Oxygen Saturation ABG 97.8 % (90-95); PCO2 ABG 31 mmHg (35-46); PO2 ABG 94 mmHg (80-95)
[2021-10-17 09:52] LABS: Appearance Urine Clear (Clear); Bacteria Urine Automated Negative (Negative); Blood Urine Trace (Negative); Color Urine Dark Yellow; Epithelial Cell Urine Auto >30 /lpf (0-5); Glucose Urine UA Negative (Negative); Ketones Urine Trace (Negative); Leukocyte Esterase Urine Trace (Negative); Nitrite Urine Negative (Negative); Protein Urine 1+ (Negative); Specific Gravity Urine 1.034 (1.000-1.030); Urobilinogen Urine Negative (Negative)
[2021-10-17 09:56] LABS: Bilirubin Urine 1+ (Negative)
[2021-10-17] MEDS ORDERED: VANCOMYCIN HCL 1,750 MG in SODIUM CHLORIDE 0.9% 500 ML IV ONE (09:56)
[2021-10-17] MEDS ORDERED: VANCOMYCIN CONSULT ACTIVE PRN (09:56)
[2021-10-17 09:58] LABS: Allen Test Pos (Pos)
[2021-10-17] MEDS ORDERED: CONSULT PHARMACY STA (10:01)
[2021-10-17 10:04] LABS: RBC Urine Automated 0-4 /hpf (0-4)
--- NOTE | 2021-10-17 10:25 | Hospitalist Progress Note ---
Date of Service October 17, 2021 Assessment & Plan (1) COVID: Plan: First symptoms: 09/26/2021 (home test positive at that time) First tested: 10/10/2021 Vaccinated: Yes (no booster) Admission date: 10/10/2021 Admission O2 requirement: 4L NC Admission CRP: 10.5 Dexamethasone course started: 10/10/2021; End date: 10/19/2021 - Presently at 10 mg daily given increased O2 need. Remdesivir contraindication: On ibrutinib Tocilizumab/baricitinib contraindication: On ibrutinib Antibiotics: None initially; procal negative x 2 (0.33 and 0.22) Breathing treatments: Albuterol PRN, Tessalon Perles (2) Acute respiratory failure with hypoxia: Plan: Aim O2 sats > 90% FiO2 65% yesterday, on BiPAP this morning but able to transition back to high flow FiO2 90%. (3) Leukocytosis: Plan: Neutrophilia in setting of worsening mental status, tachypnea and fever Possible sepsis but without definitive source at the current time Blood and urine cultures Start empiric antibiotics with vancomycin and cefepime (4) Waldenstrom macroglobulinemia: Plan: Please see admitter's note for position statement on continuing his Imbruvica. Continue Imbruvica. IgG/IgM levels checked per recommendation of hematology. IgG level greater than 400, defer IVIG at this time Appreciate recommendations (5) Right upper quadrant abdominal pain: Plan: CT A/P with IV contrast - no acute etiology identified Continue to monitor BM (6) Hypertension: Plan: BP today is 140/75. Continue losartan, continue metoprolol, continue hydralazine (7) Chronic kidney disease, stage 3: Plan: Creatinine baseline approximately 1.41.6. Cr presently 1.3. (8) Parkinson disease: Plan: Continue Sinemet, stimulator in place Discontinued metoclopramide - do not recommend restarting in the setting of his Parkinson's disease (9) Hypothyroid: Plan: Last TSH in our system from 2019. In context of severe illness, no real utility in checking. Continue Synthroid - Repeat TSH/FT4 with PCP once Covid is improving. (10) Hx of brain surgery: Plan: DBS 06/2020 Plan: VTE Prophylaxis - Lovenox 40mg SQ BID Diet - regular Disposition - continue on PCU, COVID isolation Admission and Anticipated Discharge Date Admission Date: October 10, 2021 Subjective Appeared to be getting much worse overnight. Given ativan and morphine ?due to agitation and high respiratory rate this morning and currently not responding to my questions. Alert and moans to voice. Respiratory rate 40. Unable to take his pills this morning. Temperature spike this morning. Updated his throughout the day on events. Review of Systems Review of Systems: Unobtainable due to cognitive status Physical Exam Constitutional: well developed; + not well nourished and no acute distress Eyes: + anicteric sclerae; normal pupil size ENMT: external ear and nose normal, oropharynx normal Respiratory: + respiratory distress, + labored breathing, + retractions, + uses accessory muscles and + tachypneic; + not able to speak in complete sentence and normal respiratory pattern Auscultation: + diminished lung sounds (bibasal) and + crackles (fine bibasal); no wheezes Cardiovascular: Rate/Rhythm: regular rate and regular rhythm Heart Sounds: + murmur (TRINA LUSB 4/6) Gastrointestinal (Abdomen): Inspection/Auscultation: normal bowel sounds; abdomen not distended Percussion/Palpation: abdomen soft; abdomen nontender, no guarding and abdomen not rigid Skin: no rashes, warm and dry Neurologic: moves all extremities and awake; not confused Motor/Sensory: + tremor (Left > right resting) Psychiatric: Orientation: alert; + not oriented x 3 Results & Data Results & Data ([facility]) Vital Signs (Past 12 Hours) Vital Signs Temp Pulse Pulse Pulse Resp BP Pulse Ox 10/17/21 09:52 38.4 C H 78 30 H 156/75 H 100 10/17/21 07:43 67 35 H 96 10/17/21 07:38 37.7 C H 65 30 H 124/60 98 10/17/21 06:10 63 34 H 93 10/17/21 04:23 36.5 C 65 30 H 142/79 H 86 L 10/17/21 00:02 36.9 C 63 28 H 139/78 86 L PG Care Time/CCT Total # of Minutes Spent Total Time Spent with Patient: Total time spent is greater than 50% in coordination of care (as documented) at patient's floor/unit and/or counseling patient: Coding Level of Care Code 26888 Subseq Hosp Care Lvl 3 Diagnoses COVID U07.1 Acute respiratory failure with hypoxia J96.01 Waldenstrom macroglobulinemia C88.0 Right upper quadrant abdominal pain R10.11 Hypertension I10 Hypertension type: essential hypertension Chronic kidney disease, stage 3 N18.3 Parkinson disease G20 Hypothyroid E03.9 Hypothyroidism type: unspecified Hx of brain surgery Z98.890 Leukocytosis D72.829 (1) Hypothyroid Hypothyroidism type: unspecified Qualified Code(s): E03.9 - Hypothyroidism, unspecified (2) Hypertension Hypertension type: essential hypertension Qualified Code(s): I10 - Essential (primary) hypertension
[2021-10-17] MEDS: CEFEPIME 2,000 MG/20 ML VIAL IV SCH ×2 (11:22→21:29)
--- NOTE | 2021-10-17 15:04 | Pharmacy Report ---
Pharmacy Vanc AUC Short Note - Date of Service October 17, 2021 - Assessment & Plan Assessment * 76 year old M receiving cefepime and vancomycin empirically for WBC and procalcitonin with notable increase and new-onset fever in an immunocompromized patient. Continue both empirically at least x48 hours, until blood cultures back per Dr. Pozo * SCr at baseline, but elevated. Vancomycin * AUC/DONOVAN is the preferred PK/PD target for vancomycin * AUC guided dosing is effective and associated with decreased risk of nephrotoxicity compared to traditional trough targets * Ordered dose per [facility] / AUC estimate * Will order levels if therapy is to continue past 48 hours Plan * Vancomycin 1750 mg IV x1 then 1000 mg IV q24h * No levels unless significant change to renal function tomorrow, or therapy continues beyond 48 hours Pharmacy will continue to follow and will adjust dose/frequency as necessary. Thank you.
[2021-10-17] MEDS: DOCUSATE SODIUM/SENNA 50/8.6MG TAB PO SCH (21:25)
[2021-10-17] MEDS: TAMSULOSIN HCL 0.4 MG CAP PO SCH (21:25)
[2021-10-17] MEDS: METOPROLOL TARTRATE 100 MG TAB PO SCH (21:26)
[2021-10-17] MEDS: LOSARTAN POTASSIUM 50 MG TAB PO SCH (21:26)
[2021-10-18] MEDS: CARBIDOPA/LEVODOPA 25-250 1 EA TAB PO SCH ×5 (06:11→23:09)
[2021-10-18] MEDS: LEVOTHYROXINE SODIUM 112 MCG TABLET PO SCH (06:11)
[2021-10-18 07:05] LABS: Basophils # (auto) 0.01 K/uL (0-0.2); Basophils % (auto) 0.1 %; Hematocrit (blood only) 36.3 % (42-52); Hemoglobin 11.6 g/dL (14.0-18.0); Immature Granulocytes # (auto) 0.17 K/uL (0.00-0.02); Immature Granulocytes % (auto) 0.9 %; Lymphocytes # (auto) 1.71 K/uL (1.2-3.4); Lymphocytes % (auto) 8.8 %; Mean Corpuscular Volume 87.7 fL (80-100); Mean Platelet Volume 12.7 fL (7.4-10.4); Monocytes # (auto) 0.21 K/uL (0.11-0.59); Monocytes % (auto) 1.1 %; Neutrophils # (auto) 17.35 K/uL (1.4-6.5); Neutrophils % (auto) 89.1 %; Platelet Count 154 K/uL (130-400); RDW Coefficient of Variation 14.4 % (11.5-14.5); RDW Standard Deviation 46.4 fL (36.4-46.3); Red Blood Count 4.14 M/uL (4.7-6.1); White Blood Count 19.45 K/uL (4.8-10.8)
[2021-10-18 07:36] LABS: BUN Creatinine Ratio 33.6 (10-20); Calcium 8.9 mg/dl (8.5-10.1); Creatinine Clr Calc Pharmacy 45.6 ml/min; Est GFR (African American) 55.8 ml/min; Est GFR (Non-African American) 48.1 ml/min; Potassium 4.4 mmol/L (3.5-5.1)
--- NOTE | 2021-10-18 08:40 | Hospitalist Progress Note ---
Date of Service October 18, 2021 Assessment & Plan (1) COVID: Plan: First symptoms: 09/26/2021 (home test positive at that time) First tested: 10/10/2021 Vaccinated: Yes (no booster) Admission date: 10/10/2021 Admission O2 requirement: 4L NC, significant worsening of respiratory status now CPAP dependent Admission CRP: 10.5 Dexamethasone course started: 10/10/2021 Presently at 10 mg daily given increased O2 need. Remdesivir contraindication: On ibrutinib Tocilizumab/baricitinib contraindication: On ibrutinib Antibiotics: None initially; procal negative x 2 (0.33 and 0.22) Breathing treatments: Albuterol PRN, Tessalon Perles Significant end-of-life discussion was undertaken with the family 10/18/21. Attempted to engage the patient but she is in too much distress and altered to have meaningful input. Patient's had discussed with multiple family members and they feel that the patient should be DNR/DNI at this point in time with considerations of even progression to palliative care in the upcoming days (2) Acute respiratory failure with hypoxia: Plan: Aim O2 sats > 90% FiO2 65% yesterday, on BiPAP this morning but able to transition back to high flow FiO2 90%. (3) Leukocytosis: Plan: Neutrophilia in setting of worsening mental status, tachypnea and fever Possible sepsis but without definitive source at the current time Blood and urine cultures negative to date Started empiric antibiotics with vancomycin and cefepime due to escalation of white blood cell count and fever (4) Waldenstrom macroglobulinemia: Plan: Please see admitter's note for position statement on continuing his Imbruvica. Continue Imbruvica. IgG/IgM levels checked per recommendation of hematology. IgG level greater than 400, defer IVIG Appreciate recommendations (5) Right upper quadrant abdominal pain: Plan: CT A/P with IV contrast - no acute etiology identified Continue to monitor BM (6) Hypertension: Plan: Blood pressures controlled the patient is able to take p.o. due to CPAP dependence will hold losartan convert metoprolol to IV with scheduled dosing and have as needed hydralazine for blood pressures that are elevated (7) Chronic kidney disease, stage 3: Plan: Creatinine baseline approximately 1.41.6. Cr presently 1.3. (8) Parkinson disease: Plan: Continue Sinemet, if able to take p.o. stimulator in place (9) Hypothyroid: Plan: Last TSH in our system from 2019. In context of severe illness, no real utility in checking. Continue Synthroid if unable to take p.o. we will convert IV dosing in a few days - Repeat TSH/FT4 with PCP once Covid is improving. (10) Hx of brain surgery: Plan: DBS 06/2020 Plan: VTE Prophylaxis - Lovenox 40mg SQ BID Diet - regular Disposition - continue on PCU, COVID isolation Spoke to patient's informed of poor prognostic signs 10/18/2021 Admission and Anticipated Discharge Date Admission Date: October 10, 2021 Subjective Patient has worsened over the last 2 days. He is now dependent on CPAP. His agitation required some use of Ativan there is a backup rate on his CPAP. Oxygen saturations have improved however he remains significantly tachypneic using accessory muscles of breathing and belly breathing. I spoke to the reconfirms the patient is a full code and would want to be intubated if worsens. If however this progresses this is about poor prognostic signs and the family is aware of that Review of Systems Review of Systems: Moderate to severe respiratory distress and fatigue no headache, no visual changes no speech or swallowing issues no chest pain, pressure or palpitations Continued worseningshortness of breath, CPAP dependent no abdominal pain, nausea or vomiting, no diarrhea unable to take p.o. due to CPAP dependence no dysuria, hematuria or frequency no focal joint pain or swelling no back pain, CVA tenderness or radicular pain no bruising, bleeding or rashes no focal signs of weakness or numbness or altered sensation no complaints of anxiety or depression.. Physical Exam Physical Exam: The patient appeared mild to moderate respiratory distress Vital signs as documented. Head exam is normocephalic atraumatic Neck is without JVD, thyromegaly, or carotid bruits. Lungs are coarse bilaterally in all lung elizondo tachypnea and accessory muscles of respiration Cardiac exam, Rhythm is regular.. No murmurs, rubs or gallops. Abdominal exam reveals normal bowel sounds, soft non tender, no masses Extremities are nonedematous and both pedal pulses are present Neurologic exam is alert and oriented, no focal loss of strength or sensation Skin is without bruises or rashes Results & Data Results & Data ([facility]) Vital Signs (Past 12 Hours) Vital Signs Temp Pulse Pulse Pulse Resp BP Pulse Ox 10/18/21 07:09 97.9 F 71 28 H 161/83 H 90 10/18/21 06:32 87 38 H 93 10/18/21 06:31 59 L 10/18/21 05:14 98.4 F 59 L 26 H 151/81 H 89 L 10/17/21 23:56 98.2 F 58 L 18 142/75 H 94 10/17/21 22:11 62 22 91 PG Care Time/CCT Total # of Minutes Spent Total Time Spent with Patient: Total time spent is greater than 50% in coordination of care (as documented) at patient's floor/unit and/or counseling patient: Coding Level of Care Code 30126 Subseq Hosp Care Lvl 3 Diagnoses COVID U07.1 Acute respiratory failure with hypoxia J96.01 Leukocytosis D72.829 Waldenstrom macroglobulinemia C88.0 Right upper quadrant abdominal pain R10.11 Hypertension I10 Hypertension type: essential hypertension Chronic kidney disease, stage 3 N18.3 Parkinson disease G20 Hypothyroid E03.9 Hypothyroidism type: unspecified Hx of brain surgery Z98.890 (1) Hypothyroid Hypothyroidism type: unspecified Qualified Code(s): E03.9 - Hypothyroidism, unspecified (2) Hypertension Hypertension type: essential hypertension Qualified Code(s): I10 - Essential (primary) hypertension
[2021-10-18] MEDS: LORazepam 0.5 MG/1 ML VIAL IV PRN ×3 (08:48→19:35)
[2021-10-18] MEDS: CEFEPIME 2,000 MG/20 ML VIAL IV SCH ×2 (09:27→23:09)
[2021-10-18] MEDS: dexAMETHasone 10 MG in SYRINGE 0 ML IV SCH (09:27)
[2021-10-18] MEDS: ENOXAPARIN INJ 40 MG/0.4 ML SYR SQ SCH ×2 (09:31→21:31)
[2021-10-18] MEDS: FLUTICASONE FUROATE 200MCG 14 PUFFS/INHALER INH SCH (11:40)
[2021-10-18] MEDS: POLYETHYLENE (MIRALAX) 17 GM PACK PO SCH ×2 (11:40→21:31)
[2021-10-18] MEDS ORDERED: VANCOMYCIN HCL 1,000 MG in SODIUM CHLORIDE 0.9% 250 ML IV SCH (12:00)
[2021-10-18] MEDS: IBRUTINIB 140 MG PO SCH (13:00)
[2021-10-18] MEDS: ACYCLOVIR 200 MG CAP PO SCH ×2 (13:00→21:30)
[2021-10-18] MEDS: hydrALAZINE TAB 50 MG TAB PO SCH (13:00)
[2021-10-18] MEDS: PANTOprazole 40 MG TAB PO SCH (13:08)
[2021-10-18] MEDS ORDERED: hydrALAZINE HCL 20 MG/ML VIAL IV PRN (13:12)
[2021-10-18] MEDS: METOPROLOL TARTRATE 1 MG/ML VIAL IV SCH ×3 (15:26→23:30)
[2021-10-18] MEDS: ACETAMINOPHEN 1000 MG/100 ML IV IV PRN (15:26)
--- NOTE | 2021-10-18 20:21 | Communication Note ---
Date of Service: October 18, 2021 Called to bedside following episode of increased confusion with pulling on his urinary catheter and after having pulled out his IV site. Upon presentation to bedside, patient having reduced combativeness after receiving a dose of Ativan. Due to concerns regarding potential complications with sedation will utilize cloth mitts at this point to limit continued removal of equipment. Resident Activity Tracking Resident Involvement: Resident Care Provided Care Provided: Adult Hospital Medicine
[2021-10-18] MEDS: DOCUSATE SODIUM/SENNA 50/8.6MG TAB PO SCH (21:30)
[2021-10-18] MEDS: LOSARTAN POTASSIUM 50 MG TAB PO SCH (21:31)
[2021-10-19] MEDS ORDERED: HALOPERIDOL LACTATE 5 MG/ML 1 ML VIAL IM STA (01:02)
[2021-10-19] MEDS ORDERED: MoRPHine SULFATE 2 MG/ML CARP IV STA (05:20)
[2021-10-19] MEDS: METOPROLOL TARTRATE 1 MG/ML VIAL IV SCH (06:05)
[2021-10-19] MEDS: LEVOTHYROXINE SODIUM 112 MCG TABLET PO SCH (06:48)
[2021-10-19] MEDS: CARBIDOPA/LEVODOPA 25-250 1 EA TAB PO SCH (06:48)
[2021-10-19] MEDS: ACETAMINOPHEN 1000 MG/100 ML IV IV PRN (07:48)
--- NOTE | 2021-10-19 07:57 | XRay Report ---
XR chest 1V portable CLINICAL HISTORY: Dyspnea, hypoxia TECHNIQUE: Single frontal radiograph of the chest was obtained. Comparison: Comparison is made to chest one view 10/17/2021 FINDINGS: Stable battery-powered device in the left chest wall. Cardiomegaly is noted. Multifocal airspace opac ities are seen. Overall these are stable from prior exam. No evidence of pleural effusion or pneumoth orax. IMPRESSION: Multifocal airspace opacities are overall unchanged in extent. ACT 112: Negative or not required by law. Electronically signed by: Richmond Montaño M.D. 10/19/2021 7:55 AM
[2021-10-19] MEDS: LORazepam 0.5 MG/1 ML VIAL IV PRN ×3 (08:09→17:22)
[2021-10-19] MEDS: ACYCLOVIR 200 MG CAP PO SCH (09:35)
[2021-10-19] MEDS: FLUTICASONE FUROATE 200MCG 14 PUFFS/INHALER INH SCH (09:35)
[2021-10-19] MEDS: POLYETHYLENE (MIRALAX) 17 GM PACK PO SCH (09:35)
[2021-10-19] MEDS: IBRUTINIB 140 MG PO SCH (09:35)
[2021-10-19] MEDS: dexAMETHasone 10 MG in SYRINGE 0 ML IV SCH (09:38)
[2021-10-19] MEDS: ENOXAPARIN INJ 40 MG/0.4 ML SYR SQ SCH (09:39)
[2021-10-19] MEDS ORDERED: LORazepam 0.5 MG/1 ML VIAL IV PRN (10:28)
[2021-10-19] MEDS ORDERED: GLYCOPYRROLATE 0.2 MG/ML VIAL IV PRN (10:28)
[2021-10-19] MEDS ORDERED: ATROPINE SULFATE 1% OP SOLN 5 ML BTL SL PRN (10:28)
[2021-10-19] MEDS ORDERED: ONDANSETRON INJ 2 MG/ML 2 ML VIAL IV PRN (10:28)
[2021-10-19] MEDS: MoRPHine SULFATE 2 MG/ML CARP IV PRN ×2 (10:39→11:33)
[2021-10-19] MEDS ORDERED: PANTOprazole 40 MG in SYRINGE 0 ML IV SCH (11:00)
[2021-10-19] MEDS ORDERED: STAT IV Infusion **Titration per Protocol STA (12:06)
[2021-10-19] MEDS ORDERED: MoRPHine SULF/NSS 250 MG/250 ML BTL IV SCH (12:15)
--- NOTE | 2021-10-19 18:15 | Discharge Summary ---
Date of Service October 19, 2021 Admission HPI Per Admitting Provider 76 YOM with past medical history of: Waldenstrom Macroglobulinemia (on Imbruvica, recently missed IVIG this week), HTN, moderate , Parkinson's disease- with deep brain stimulator, Chronic back pain, BPH, CKD. Patient comes in today for increase in dyspnea and cough. The patient had a COVID test performed and was positive. The patient had received his 2 vaccines without booster to this time. Patient originally reported increase in fatigue with cough ~2 weeks ago, him and his took a home COVID test on that was positive. Patient endorses today that he just feels more fatigued, lost his appetite as well as his sense of taste and smell. He feels dyspneic when he is up and moving. He had an SPO2 on room air of 88% and is currently on 6LNC oxygneating well and appears comfortable with his breathing. The patient has denied any chest pain or dizziness. He follows with Neurology for his Parkinson's disease and had his Carbidopa/levadopa increased in July to 5x daily, he and his enodrse no change in his symptoms and continues to have wearing off and freezing with no improvment in his tremor noted. For his WM macroglobulinemia the patient is on Imbruvica he is followed locally by Dr. Manzo where he also receives IVIG, he is on prophylaxis acyclovir- As above patient was to get IVIG this week and has missed this dose. As for his Imbruvica- this will preclude him from receiving Baricitinib and literature review with "The Consensus Statement on WM; patient's during the COVID 19 pandemic"- April 2020 that Imburvica may be continued as he is in the later phase of his illness. Will consult Haemetology for his Imbruvica as well as +/- benefit for IVIG at this time. Will increase patient steroid to 10mg IV daily. Continue further supportive Principal Diagnosis 10/19/211821 acute hypoxic respiratory failure covid pneumonia Discharge Exam pt examined for 60 seconds without audible heart tones or spontaneous respirations Discharge Data Allergies Allergy/AdvReac Type Severity Reaction Status Date / Time levofloxacin Allergy Severe Kidney Verified 10/10/21 11:33 injury, ankle swelling lisinopril Allergy Severe Dyspnea Verified 10/10/21 11:33 fentanyl Allergy Intermediate Rash Verified 10/10/21 11:33 olmesartan Allergy Intermediate Rash Verified 10/10/21 11:33 tramadol Allergy Intermediate Rash Verified 10/10/21 11:33 oxycodone Allergy Mild Itching Verified 10/10/21 11:33 pramipexole AdvReac Mild GI symptoms Verified 10/10/21 11:33 topiramate AdvReac Mild GI symptoms Verified 10/10/21 11:33 Consultations 10/10/21 12:02 ED Decision to Admit Stat 10/10/21 15:19 Consult Hematology Routine Ordered Studies 10/10/21 12:18 CT chest diagnostic wo con Urgent 10/16/21 10:31 CT abd pelvis IV con only Routine 10/16/21 10:32 CT angio chest PE protocol Stat 10/16/21 19:56 US arterial duplex LE LT Urgent Hospital Course (1) : pt 10/19/21 secondary to acute hypoxic respiratory faiure from covid pneumonia, the family made pt comfort care and stopped NIPPV today and he succumed to the illness at 1822 the remiander of the notes are from earlier in the hospital stay (2) COVID: First symptoms: 09/26/2021 (home test positive at that time) First tested: 10/10/2021 Vaccinated: Yes (no booster) Admission date: 10/10/2021 Admission O2 requirement: CPAP dependent->transitioned to comfort measures stopped CPAP Admission CRP: 10.5 Dexamethasone course started: 10/10/2021 Remdesivir contraindication: On ibrutinib Tocilizumab/baricitinib contraindication: On ibrutinib Antibiotics: None initially; procal negative x 2 (0.33 and 0.22) Breathing treatments: Albuterol PRN, Tessalon Perles Significant end-of-life discussion was undertaken with the family 10/18/21. Attempted to engage the patient but she is in too much distress and altered to have meaningful input. Patient's had discussed with multiple family members and they feel that the patient should be DNR/DNI at this point in time IN am 10/19 callled progression to palliative care , family permitted to bedside and pt passed on comfort measures (3) Acute respiratory failure with hypoxia: (4) Leukocytosis: Neutrophilia in setting of worsening mental status, tachypnea and fever Possible sepsis but without definitive source at the current time Blood and urine cultures negative to date Started empiric antibiotics with vancomycin and cefepime due to escalation of white blood cell count (5) Waldenstrom macroglobulinemia: Please see admitter's note for position statement on continuing his Imbruvica. IgG/IgM levels checked per recommendation of hematology. IgG level greater than 400, defer IVIG (6) Right upper quadrant abdominal pain: CT A/P with IV contrast - no acute etiology identified Continue to monitor BM (7) Hypertension: (8) Chronic kidney disease, stage 3: (9) Parkinson disease: Sinemet, if able to take p.o. stimulator in place (10) Hypothyroid: (11) Hx of brain surgery: DBS 06/2020 Total Time Total Time Spent Total Time Spent (In Minutes): It required greater than 30 minutes to prepare this patient for discharge Discharge Plan Discharge Items Patient Disposition: Reason For Visit: COVID 19 Condition on Discharge: Fair Follow-up/Referrals: Tho Dickerson [Primary Care Provider] - Medications and DC Order Prescriptions: No Action cholecalciferol (vitamin D3) 5,000 unit tablet 5,000 units PO QAM RF: 0 tamsulosin [Flomax] 0.4 mg capsule 0.4 mg PO HS RF: 0 hydralazine 50 mg tablet 50 mg PO TID Qty: 270 RF: 3 metoprolol tartrate 50 mg tablet 50 mg PO DIRECTED RF: 0 carbidopa-levodopa 25-250 mg tablet 1 tab PO 5XD Qty: 450 RF: 3 Imbruvica 280 mg Tablet 280 mg PO QAM RF: 0 acyclovir 200 mg Capsule 200 mg PO BID RF: 0 losartan 50 mg tablet 50 mg PO PM RF: 0 levothyroxine [Euthyrox] 112 mcg tablet 112 mcg PO DAILYBB RF: 0 albuterol sulfate 2.5 mg /3 mL (0.083 %) solution for nebulization 2.5 mg inhalation Q6H PRN (Reason: Cough) RF: 0 albuterol sulfate 90 mcg/actuation HFA aerosol inhaler 2 puff INHALATION QID PRN (Reason: Wheezing) RF: 0 Asmanex Twisthaler 220 mcg/ actuation (60) aerosol powdr breath activated 1 inh INHALATION BID RF: 0 polyethylene glycol 3350 [Miralax] 17 gram Powder In Packet 17 g PO BID Qty: 0 RF: 0 sennosides-docusate sodium [Senokot-S] 8.6-50 mg Tablet 2 tab PO HS Qty: 0 RF: 0 ondansetron 4 mg tablet,disintegrating 4 mg PO Q8H PRN (Reason: nausea and vomiting) Qty: 30 RF: 0 Admission Data Admit Date/Time: 10/10/21 12:17 Attending Provider: Wenceslao Fox Admit Provider: Rashard Rubi Primary Care Provider: Tho Dickerson Other Providers: Harry Dobson V. ; Alexi Mccarthy Coding Level of Care Code D/C DAY MANAGEMENT >30 MINS Diagnoses COVID U07.1 Acute respiratory failure with hypoxia J96.01 Leukocytosis D72.829 Waldenstrom macroglobulinemia C88.0 Right upper quadrant abdominal pain R10.11 Hypertension I10 Hypertension type: essential hypertension Chronic kidney disease, stage 3 N18.3 Parkinson disease G20 Hypothyroid E03.9 Hypothyroidism type: unspecified Hx of brain surgery Z98.890 R99
== END 2021-10-19 20:00 | disposition expired | DRG 177 ==
LOC: ED 10:21 → SUATTDRO 12:17 → EDINP 12:17 → 2E 15:18